=== PATIENT | female | born 1950 | race Caucasian/White ===

== ENCOUNTER 2016-03-02 16:43 | Emergency (ER) | payer MEDICARE, OTHER ==
--- NOTE | 2016-03-02 17:24 | ERPHSYRPT ---
- History of Present Illness Time Seen by Provider: 03/02/16 17:18 Source: patient Exam Limitations: no limitations Patient Subjective Stated Complaint: bilat feet pain radiating to bilat legs Triage Nursing Assessment: saw dr best yesterday for same s/s --bilat feet and leg pain. has been weaning herself off hydrocodone and is down to tid norco 10. states her legs are restless and she cant get comfortable. denies problems with urination. diarrhea 2 days go. skin warm and dry. abd soft Physician History: The patient is a 65-year-old female who complains of chronic foot pain. She is under a lot of stress and is a poor historian. She saw Dr. Aidan Shukla yesterday for depression and was started on Effexor. She forgot to tell him that she was having pain in both feet. She has a history of neuropathy and is taking gabapentin 800 mg twice a day. She tells me that one time she forgot to take her gabapentin and the pain flared up. She then tells me that for the past few weeks that she forgets to take her daily medicines. 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 Method of Injury: other (non injury) Occurred: other (chronic) Quality: constant Severity of Pain-Max: moderate Severity of Pain-Current: moderate Lower Extremities Pain: foot: bilateral Modifying Factors: Improves With: pain medication Associated Symptoms: none Allergies/Adverse Reactions: meperidine HCl [From Demerol] Allergy (Mild, Verified 03/02/16 16:58) Vomiting Home Medications: Amlodipine Besylate [Norvasc] 10 mg PO HS 02/20/13 [History] Atorvastatin Calcium [Lipitor] 40 mg PO DAILY 02/20/13 [History] Carbamazepine 200 mg [Tegretol 200 MG] 200 mg PO TID 02/20/13 [History] Metformin HCl 1000 mg [Glucophage 1000 MG] 1,000 mg PO BID 02/20/13 [History] Albuterol Sulfate 1 vial IN Q4H PRN 05/12/15 [History] Armodafinil [Nuvigil] 1 tab PO DAILY 05/12/15 [History] Gabapentin 400 mg [Neurontin 400 MG] 800 mg PO BID 05/12/15 [History] Lorazepam 1 mg [Ativan 1 MG] 1 mg PO DAILY 05/12/15 [History] Quinapril/Hydrochlorothiazide [Quinapril-Hctz 20-25 mg Tab] 20 mg PO DAILY 05/11 [History] Hx Tetanus, Diphtheria Vaccination/Date Given: Yes Hx Influenza Vaccination/Date Given: No Hx Pneumococcal Vaccination/Date Given: No Immunizations Up to Date: Yes - Review of Systems Constitutional: No Fever, No Chills Eyes: No Symptoms Ears, Nose, & Throat: No Symptoms Respiratory: No Cough, No Dyspnea Cardiac: No Chest Pain, No Edema, No Syncope Abdominal/Gastrointestinal: No Abdominal Pain, No Nausea, No Vomiting, No Diarrhea Genitourinary Symptoms: No Dysuria Musculoskeletal: No Back Pain, No Neck Pain Skin: No Rash Neurological: Other (neuropathy), No Dizziness, No Focal Weakness, No Sensory Changes Hematologic/Lymphatic: No Symptoms Immunological/Allergic: No Symptoms All Other Systems: Reviewed and Negative - Past Medical History Pertinent Past Medical History: Yes Neurological History: No Pertinent History ENT History: No Pertinent History Cardiac History: High Cholesterol, Hypertension Respiratory History: No Pertinent History Endocrine Medical History: Diabetes Type II, Hypothyroidism Musculoskeletal History: No Pertinent History GI Medical History: Colitis, Diverticulitis, Diverticulosis, GERD, Other History: No Pertinent History Psycho-Social History: Anxiety, Depression Female Reproductive Disorders: No Pertinent History - Past Surgical History Past Surgical History: Yes Neuro Surgical History: No Pertinent History Cardiac: No Pertinent History Respiratory: No Pertinent History Gastrointestinal: Cholecystectomy Genitourinary: No Pertinent History Musculoskeletal: No Pertinent History Female Surgical History: Hysterectomy Other Surgical History: thryoid - Social History Smoking Status: Current every day smoker How long have you smoked: 10 years Exposure to second hand smoke: No Drug Use: none Patient Lives Alone: Yes - Female History Hx Now: No - Nursing Vital Signs Nursing Vital Signs: Initial Vital Signs Temperature 98.5 F Temperature Source Oral Pulse Rate 89 Respiratory Rate 18 Blood Pressure 142/84 Pain Intensity 10 - Physical Exam General Appearance: alert Eyes, Ears, Nose, Throat Exam: moist mucous membranes Neck Exam: non-tender, supple Cardiovascular/Respiratory Exam: chest non-tender, normal breath sounds, regular rate/rhythm, no respiratory distress Gastrointestinal/Abdominal Exam: non-tender, guarding Back Exam: normal inspection, No vertebral tenderness Hips Exam: bilateral: non-tender, normal inspection Legs Exam: bilateral leg: non-tender, normal inspection Knees Exam: bilateral knee: non-tender, normal inspection Ankle Exam: bilateral ankle: non-tender, normal inspection Foot Exam: bilateral foot: non-tender, normal inspection Neuro/Tendon Exam: normal sensation, normal motor functions Mental Status Exam: alert, oriented x 3, cooperative, depressed affect Skin Exam: normal color, warm, dry SpO2 Interpretation: normal SpO2: 97 Oxygen Delivery: Room Air - Progress Progress: unchanged Counseled pt/family regarding: diagnosis, need for follow-up - Departure Time of Disposition: 17:25 Departure Disposition: Home Clinical Impression: Neuropathy Condition: Stable Critical Care Time: No Additional Instructions: Increase gabapentin from 800 mg twice a day to 800 mg three times a day. Follow up next week.
[2016-03-02] MEDS ORDERED: TORAdol 30 mg Injection IM ONE (17:29)
[2016-03-02] MEDS ORDERED: TORAdol 30 mg Injection ONE (17:31)
[2016-03-02 18:01] VITALS: BP 154/70; PULSE 77; O2SAT 95
== END 2016-03-02 18:00 | disposition home or self-care (01) ==
LOC: ED 16:43
DX: G62.9 Polyneuropathy, unspecified (principal); E11.9 Type 2 diabetes mellitus without complications; I10 Essential (primary) hypertension; E78.00 Pure hypercholesterolemia, unspecified; Z79.899 Other long term (current) drug therapy
CPT/HCPCS: 96372; 99282; J1885

== ENCOUNTER 2016-06-23 09:15 | Emergency (ER) | payer MEDICARE ==
[2016-06-23] MEDS ORDERED: ANTIVERT 25 MG PO ONE (09:33)
--- NOTE | 2016-06-23 09:38 | ERPHSYRPT ---
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 She is not having any problems speaking. Past medical history includes hypercholesterolemia, high blood pressure, diabetes, hypothyroidism, colitis, diverticulitis, diverticulosis, GERD, anxiety , depression Past surgical history includes cholecystectomy hysterectomy and thyroid surgery Timing/Duration: day(s) (2 days) Severity: moderate Associated Symptoms: other (vertigo for 2 days), No nausea, No vomiting, No abdominal pain, No shortness of breath, No heartburn, No diaphoresis, No cough, No chills, No chest pain, No fever, No headaches, No loss of appetite, No malaise, No rash, No syncope, No seizure, No weakness Allergies/Adverse Reactions: meperidine HCl [From Demerol] Adverse Reaction (Mild, Verified 06/23/16 09:25) Vomiting Home Medications: Amlodipine Besylate [Norvasc] 10 mg PO HS 02/20/13 [History] Atorvastatin Calcium [Lipitor] 40 mg PO DAILY 02/20/13 [History] Metformin HCl 1000 mg [Glucophage 1000 MG] 1,000 mg PO BID 02/20/13 [History] Armodafinil [Nuvigil] 1 tab PO DAILY 05/12/15 [History] Gabapentin 400 mg [Neurontin 400 MG] 800 mg PO BID 05/12/15 [History] Lorazepam 1 mg [Ativan 1 MG] 1 mg PO DAILY 05/12/15 [History] Quinapril/Hydrochlorothiazide [Quinapril-Hctz 20-25 mg Tab] 20 mg PO DAILY 05/11 [History] Venlafaxine HCl [Effexor] 0 mg PO DAILY 06/23/16 [History] Hx Tetanus, Diphtheria Vaccination/Date Given: Yes Hx Influenza Vaccination/Date Given: No Hx Pneumococcal Vaccination/Date Given: No Immunizations Up to Date: Yes - Review of Systems Constitutional: No Fever, No Chills Eyes: No Symptoms, No Discharge, No Eye Pain, No Eye Redness, No Itchy, No Photophobia, No Tearing, No Vision Changes, No Double Vision, No Foreign Body Sensation Ears, Nose, & Throat: No Symptoms, No Ear Pain, No Ear Discharge, No Hearing Changes, No Tinnitus, No Nose Pain, No Nose Congestion, No Nose Discharge, No Sinus Drainage, No Epistaxis, No Mouth Pain, No Mouth Swelling, No Loose Teeth, No Throat Pain, No Throat Swelling, No Hoarse, No Painful Swallowing, No Snoring , No Stridor Respiratory: No Cough, No Dyspnea Cardiac: No Chest Pain, No Edema, No Syncope Abdominal/Gastrointestinal: No Abdominal Pain, No Nausea, No Vomiting, No Diarrhea Genitourinary Symptoms: No Dysuria Musculoskeletal: No Back Pain, No Neck Pain Skin: No Rash Neurological: Dizziness, Vertigo, No Focal Weakness, No Gait Changes, No Headache, No Irritability, No Lethargy, No Paralysis, No Parasthesia, No Seizure , No Sensory Changes, No Speech Changes, No Tics, No Tremors Psychological: No Symptoms Endocrine: No Symptoms All Other Systems: Reviewed and Negative - Past Medical History Pertinent Past Medical History: Yes Neurological History: No Pertinent History ENT History: No Pertinent History Cardiac History: High Cholesterol, Hypertension Respiratory History: No Pertinent History Endocrine Medical History: Diabetes Type II, Hypothyroidism Musculoskeletal History: No Pertinent History GI Medical History: Colitis, Diverticulitis, Diverticulosis, GERD, Other History: No Pertinent History Psycho-Social History: Anxiety, Depression Female Reproductive Disorders: No Pertinent History - Past Surgical History Past Surgical History: Yes Neuro Surgical History: No Pertinent History Cardiac: No Pertinent History Respiratory: No Pertinent History Gastrointestinal: Cholecystectomy Genitourinary: No Pertinent History Musculoskeletal: No Pertinent History Female Surgical History: Hysterectomy Other Surgical History: thryoid - Social History Smoking Status: Current every day smoker How long have you smoked: 10 years Exposure to second hand smoke: No Drug Use: none Patient Lives Alone: Yes - Female History Hx Now: No - Nursing Vital Signs Nursing Vital Signs: Initial Vital Signs Temperature 98.0 F Temperature Source Oral Pulse Rate 70 Respiratory Rate 22 Blood Pressure [] 116/52 Pain Intensity 0 - Physical Exam General Appearance: no apparent distress, alert, other (atient complains of vertigo and dizzyness with turning her head) Eye Exam: PERRL/EOMI, eyes nml inspection Ears, Nose, Throat Exam: normal ENT inspection, TMs normal, pharynx normal, moist mucous membranes Neck Exam: normal inspection, non-tender, supple, full range of motion Respiratory Exam: normal breath sounds, lungs clear, No respiratory distress Cardiovascular Exam: regular rate/rhythm, normal heart sounds, normal peripheral pulses Gastrointestinal/Abdomen Exam: soft, normal bowel sounds, No tenderness, No mass Back Exam: normal inspection, normal range of motion, No CVA tenderness, No vertebral tenderness Extremity Exam: normal inspection, normal range of motion, pelvis stable Neurologic Exam: alert, oriented x 3, cooperative, 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 nml as tested, normal mood/affect, nml cerebellar function, nml station & gait, sensation nml, other (alert, oriented 3, speech normal, no facial droop, cranial nerves II through XII intact, normal finger to nose, 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 5 over 5 , no pronator drift sensation intact to all extremities), No motor deficits, No sensory deficit, No disoriented, No confusion, No agitation, No uncooperative, No intoxicated appearance, No depressed mood/affect, No motor weakness, No facial droop, No slurred speech, No aphasia, No dysarthria, No abnormal gait, No abnormal cerebellar tests Skin Exam: normal color, warm, dry, No rash Lymphatic Exam: No adenopathy SpO2 Interpretation: normal (97%) SpO2: 97 Oxygen Delivery: Room Air - Course EKG Interpreted by Me: RATE (70 bpm), Sinus Rhythm, NORMAL AXIS, Other (EKG: Sinus rhythm, 70 beats per minute, normal axis, no acute ST or T wave changes, essentially normal EKG) - CT Exams Head CT Interpretation: Discussed w/radiologist, Other (head CT: Impression: Again no acute intracranial abnormities, minimal paranasal sinus disease) Ordered Tests: Active Orders 24 hr Category Date Time Status Accucheck STAT Care 06/23/16 09:33 Active EKG-ER Only STAT Care 06/23/16 09:33 Active IV Insertion STAT Care 06/23/16 09:33 Active Orthostatic Vital Signs STAT Care 06/23/16 09:33 Active HEAD WITHOUT CONTRAST [CT] Stat Exams 06/23/16 09:34 Completed CBC W DIFF Stat Lab 06/23/16 09:35 Completed CMP Stat Lab 06/23/16 09:35 Completed TROPONIN Stat Lab 06/23/16 09:35 Completed UA W/ MICROSCOPIC Stat Lab 06/23/16 09:35 Completed Medication Summary Generic Name Dose Route Start Last Admin Trade Name Freq PRN Reason Stop Dose Admin Sodium Chloride 1,000 mls @ 100 mls/hr 06/23/16 09:45 06/23/16 09:52 Sodium Chloride 0.9% 1000 Ml IV 07/23/16 09:44 100 mls/hr .Q10H RENE Administration Discontinued Medications Generic Name Dose Route Start Last Admin Trade Name Freq PRN Reason Stop Dose Admin Aspirin 243 mg 06/23/16 10:20 06/23/16 10:22 Baby Aspirin 81 Mg Chew PO 06/23/16 10:21 243 mg STAT ONE Administration Meclizine HCl 12.5 mg 06/23/16 09:33 06/23/16 09:52 Antivert 25 Mg PO 06/23/16 09:34 12.5 mg STAT ONE Administration Meclizine HCl Confirm 06/23/16 09:43 Antivert 25 Mg Administered 06/23/16 09:44 Dose 25 mg .ROUTE .[facility] ONE Lab/Rad Data: Laboratory Result Diagrams 06/23/16 09:35 06/23/16 09:35 Laboratory Results 06/23/16 06/23/16 06/23/16 Range/Units 09:35 09:35 09:35 WBC 8.4 (4.0-10.5) K/mm3 RBC 4.20 (4.1-5.4) M/mm3 Hgb 12.9 (12.0-16.0) gm/dl Hct 40.5 (35-47) % MCV 96.4 (78-100) fl MCH 30.7 (26-32) pg MCHC 31.9 L (32-36) g/dl RDW 14.1 H (11.5-14.0) % Plt Count 253 (150-450) K/mm3 MPV 10.2 H (6-9.5) fl Gran % 65.2 (36.0-66.0) % Lymphocytes % 25.3 (24.0-44.0) % Monocytes % 6.2 (0.0-12.0) % Eosinophils % 2.5 (0.00-5.0) % Basophils % 0.8 (0.0-0.4) % Basophils # 0.07 (0-0.4) Sodium 140 (136-145) mEq/L Potassium 4.7 (3.5-5.1) mEq/L Chloride 104 (98-107) mEq/L Carbon Dioxide 25.6 (21-32) mEq/L Anion Gap 15.4 H (5-15) MEQ/L BUN 16 (9-20) mg/dL Creatinine 0.80 (0.55-1.30) mg/dl Estimated GFR > 60 ML/MIN Glucose 153 H (70-110) MG/DL Calcium 9.1 (8.5-10.1) mg/dL Total Bilirubin 0.2 (0.2-1.0) mg/dL AST 34 (15-37) U/L ALT 76 (12-78) U/L Alkaline Phosphatase 151 H (46-116) U/L Troponin I < 0.017 (0.000-0.056) ng/ml Serum Total Protein 6.9 (6.4-8.2) gm/dL Albumin 3.3 L (3.4-5.0) g/dL Ur Collection Type VOID Urine Color YELLOW (YELLOW) Urine Appearance CLEAR (CLEAR) Urine pH 7.0 (5-6) Ur Specific [place] 1.010 (1.005-1.025) Urine Protein NEGATIVE (Negative) Urine Glucose (UA) NEGATIVE (NEGATIVE) mg/dL Urine Ketones NEGATIVE (NEGATIVE) Urine Nitrite NEGATIVE (NEGATIVE) Urine Bilirubin NEGATIVE (NEGATIVE) Urine Urobilinogen 0.2 (0-1) mg/dL Urine WBC (Auto) NEGATIVE (NEGATIVE) Urine RBC (Auto) TRACE-INTACT (0-5) [place]/ul Urine Microscopic RBC 2-5 (0-2) /HPF Ur Epithelial Cells FEW (FEW) /HPF Urine Bacteria FEW (NEGATIVE) /HPF Urine Mucus SLIGHT (NEGATIVE) /HPF Specimen Received 06/23/16 0940 - Progress Progress: improved Progress Note: 06/23/16 10:48 66-year-old white female complains of vertigo worse with turning her head symptoms for 2-3 days. Patient without facial droop sensory loss speech deficits or motor deficits or sensory deficits. Patient feeling better after IV fluids and Antivert. Patient mildly orthostatic given 1 L of normal saline. Patient also given aspirin patient is on aspirin at home. Will plan to discharge patient with Antivert when necessary. Patient states she has an appointment with her family doctor next week. 06/23/16 10:[address] negative laboratory data is negative EKG negative - Departure Time of Disposition: 10:49 Departure Disposition: Home Clinical Impression: Vertigo Condition: Fair Critical Care Time: No Instructions: Vertigo Additional Instructions: Return home. Plenty of fluids. Antivert 12.5 mg orally every 6 hours as needed for vertigo. Continue aspirin however changed to 162 mg orally daily. Follow-up with your family doctor next week sooner if problems. Return for acute distress or for severe symptoms. Prescriptions: Meclizine HCl 25 mg [Antivert 25 mg] 12.5 mg PO Q6H PRN PRN #20 tablet PRN Reason: vertigo
[2016-06-23] MEDS ORDERED: Sodium Chloride 0.9% 1000 ML 1,000 ML ONE (09:43)
[2016-06-23] MEDS ORDERED: ANTIVERT 25 MG ONE (09:43)
[2016-06-23] MEDS ORDERED: Sodium Chloride 0.9% 1000 ML 1,000 ML IV SCH (09:45)
[2016-06-23 09:47] LABS: BASOPHIL % 0.8 % (0.0-0.4); Eosinophil % 2.5 % (0.00-5.0); Granulocytes % 65.2 % (36.0-66.0); Lymphocytes % 25.3 % (24.0-44.0); Mean Cell Volume 96.4 fl (78-100); Mean Corpuscular Hemoglobin 30.7 pg (26-32); Mean Platelet Volume 10.2 fl (6-9.5); Monocytes % 6.2 % (0.0-12.0); Platelet Count 253 K/mm3 (150-450); Red Cell Distribution Width 14.1 % (11.5-14.0); White Blood Count 8.4 K/mm3 (4.0-10.5)
[2016-06-23 09:56] LABS: COMPLETE URINE MICROSCOPIC? YES; Collection Type VOID
[2016-06-23 10:00] LABS: Bacteria FEW /HPF (NEGATIVE); Epithelial Cells FEW /HPF (FEW); Mucus SLIGHT /HPF (NEGATIVE)
[2016-06-23 10:08] LABS: ALBUMIN 3.3 g/dL (3.4-5.0); ALKALINE PHOSPHATASE 151 U/L (46-116); ANION GAP 15.4 MEQ/L (5-15); BILIRUBIN,TOTAL 0.2 mg/dL (0.2-1.0); BLOOD UREA NITROGEN 16 mg/dL (9-20); CHLORIDE 104 mEq/L (98-107); Carbon Dioxide 25.6 mEq/L (21-32); Glucose 153 MG/DL (70-110); Potassium 4.7 mEq/L (3.5-5.1); SGOT/AST 34 U/L (15-37); SGPT/ALT 76 U/L (12-78); SODIUM 140 mEq/L (136-145); Total Protein 6.9 gm/dL (6.4-8.2)
[2016-06-23 10:14] LABS: TROPONIN < 0.017 ng/ml (0.000-0.056)
[2016-06-23 10:17] VITALS: O2SAT 97
[2016-06-23] MEDS ORDERED: BABY ASPIRIN 81 MG CHEW PO ONE (10:20)
--- NOTE | 2016-06-23 10:24 | XRAY ---
Indication: Vertigo. Multiple contiguous axial images obtained through the head without contrast. Comparison: July 10, 2014. Again normal appearing brain parenchyma, ventricles, and bony calvarium. Again fluid leveling in the left sphenoid sinus less than before. Remaining visualized paranasal sinuses and mastoid air cells are clear. Impression: Again no acute intracranial abnormalities. Minimal paranasal sinus disease. CT DI 69.25
[2016-06-23 11:27] VITALS: BP 115/66; PULSE 68
[2016-06-23] MEDS ORDERED: BABY ASPIRIN 81 MG CHEW ONE (12:35)
== END 2016-06-23 11:31 | disposition home or self-care (01) ==
LOC: ED 09:15
DX: R42 Dizziness and giddiness (principal); E11.9 Type 2 diabetes mellitus without complications; Z79.4 Long term (current) use of insulin; K21.9 Gastro-esophageal reflux disease without esophagitis; F41.8 Other specified anxiety disorders; Z72.0 Tobacco use; Z79.899 Other long term (current) drug therapy
CPT/HCPCS: 36000; 36415; 70450; 80053; 81000; 82962; 84484; 85025; 93005; 96360; 96361; 99284; 99285; A9270-GY

== ENCOUNTER 2016-12-04 20:44 | Emergency (ER) | payer MEDICARE ==
[2016-12-04] MEDS ORDERED: Hydromorphone 1 mg/ml Ampule IV ONE (21:12)
[2016-12-04] MEDS ORDERED: Phenergan 25 MG INJ IV ONE (21:12)
[2016-12-04] MEDS ORDERED: Sodium Chloride 0.9% 1000 ML 1,000 ML IV SCH (21:15)
--- NOTE | 2016-12-04 21:22 | ERPHSYRPT ---
- History of Present Illness Time Seen by Provider: 12/04/16 21:05 Source: patient Exam Limitations: no limitations Patient Subjective Stated Complaint: pt states she has been having intermittent numbness of her rt arm which starts in the hand and tonight moves to the rt upper arm. pt states at times she sometimes gets numbness in the lt hand also. states numbness improves after shaking hand. Triage Nursing Assessment: pt alert and oriented, answers questions approp. speech slurred. pt ambulatory with steady gait noted. respirations nonlabored with lungs cta. pupils equal and reactive. 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 Physician History: FOR THE PAST 3 WEEKS PT HAS HAD PAINFUL TINGLING OF HER HANDS AND RIGHT FOREARM/ ELBOW WHICH FEELS LIKE THE NEUROPATHY SHE HAS HAD IN HER LOWER EXTREMITIES. PT DENIES RECENT INJURY, CHEST PAIN, SHORTNESS OF AIR, VOMITING, ABDOMINAL PAIN; ADMITS TO CHILLS AND DIAPHORESIS 7 DAYS AGO AND CHILLS AGAIN 2 DAYS AGO. Allergies/Adverse Reactions: meperidine HCl [From [employer]] Adverse Reaction (Mild, Verified 12/04/16 21:01) Vomiting Home Medications: Amlodipine Besylate [Norvasc] 10 mg PO HS 02/20/13 [History] Atorvastatin Calcium [Lipitor] 40 mg PO DAILY 02/20/13 [History] Metformin HCl 1000 mg [Glucophage 1000 MG] 1,000 mg PO BID 02/20/13 [History] Gabapentin 400 mg [Neurontin 400 MG] 800 mg PO TID 05/12/15 [History] Hydrocodone/APAP 10/325 mg [[place] 10/325 MG Tablet] 1 tab PO Q6H PRN PRN 12/04/16 [History] Levothyroxine Sodium 150 mcg PO DAILY 12/04/16 [History] Quinapril HCl 40 mg PO BID 12/04/16 [History] Ranitidine HCl [Zantac] 300 mg PO DAILY 12/04/16 [History] Trazodone HCl 150 mg PO HS 12/04/16 [History] Venlafaxine HCl [Effexor Xr] 150 mg PO DAILY 12/04/16 [History] Hx Tetanus, Diphtheria Vaccination/Date Given: Yes Hx Influenza Vaccination/Date Given: No Hx Pneumococcal Vaccination/Date Given: No Immunizations Up to Date: Yes - Review of Systems Constitutional: Chills Respiratory: No Dyspnea Cardiac: No Chest Pain Abdominal/Gastrointestinal: No Abdominal Pain, No Vomiting Neurological: Sensory Changes (TINGLING IN HANDS AND RIGHT FOREARM/ELBOW) Endocrine: Excessive Sweating All Other Systems: Reviewed and Negative - Past Medical History Pertinent Past Medical History: Yes Neurological History: No Pertinent History ENT History: No Pertinent History Cardiac History: High Cholesterol, Hypertension Respiratory History: No Pertinent History Endocrine Medical History: Diabetes Type II, Hypothyroidism Musculoskeletal History: No Pertinent History GI Medical History: Colitis, Diverticulitis, Diverticulosis, GERD, Other History: No Pertinent History Psycho-Social History: Anxiety, Depression Female Reproductive Disorders: No Pertinent History - Past Surgical History Past Surgical History: Yes Neuro Surgical History: No Pertinent History Cardiac: No Pertinent History Respiratory: No Pertinent History Gastrointestinal: Cholecystectomy Genitourinary: No Pertinent History Musculoskeletal: No Pertinent History Female Surgical History: Hysterectomy Other Surgical History: thryoid - Social History Smoking Status: Current every day smoker How long have you smoked: 10 years Exposure to second hand smoke: No Drug Use: none Patient Lives Alone: Yes - Female History Hx Now: No - Nursing Vital Signs Nursing Vital Signs: Initial Vital Signs Temperature 97.7 F 12/04/16 20:49 Pulse Rate 81 12/04/16 20:49 Respiratory Rate 18 12/04/16 20:49 Blood Pressure 149/57 12/04/16 20:49 O2 Sat by Pulse Oximetry 95 12/04/16 20:49 Pain Scale Pain Intensity 10 - Physical Exam General Appearance: alert Eye Exam: PERRL/EOMI Ears, Nose, Throat Exam: pharynx normal, moist mucous membranes, other (CERUMEN OCCLUSION OF RIGHT EAR) Neck Exam: normal inspection Respiratory Exam: lungs clear Cardiovascular Exam: normal heart sounds Gastrointestinal/Abdomen Exam: soft, normal bowel sounds Back Exam: normal range of motion Extremity Exam: normal inspection, normal range of motion, No pedal edema Neurologic Exam: alert, cooperative, normal mood/affect, sensory deficit ( DECREASED SENSATION IN RIGHT THUMB), No motor deficits Skin Exam: warm, dry SpO2 Interpretation: normal SpO2: 95 Oxygen Delivery: Room Air - Course Nursing assessment & vital signs reviewed: Yes Ordered Tests: Active Orders 24 hr Category Date Time Status IV Insertion STAT Care 12/04/16 21:12 Active AMYLASE Stat Lab 12/04/16 21:30 Completed CBC W DIFF Stat Lab 12/04/16 21:30 Completed CMP Stat Lab 12/04/16 21:30 Completed LIPASE Stat Lab 12/04/16 21:30 Completed MAG [MAGNESIUM] Stat Lab 12/04/16 21:30 Completed UA W/RFX UR CULTURE Stat Lab 12/04/16 21:40 Completed Urine Triage Profile Stat Lab 12/04/16 21:40 Completed Medication Summary Generic Name Dose Route Start Last Admin Trade Name Freq PRN Reason Stop Dose Admin Sodium Chloride 1,000 mls @ 100 mls/hr 12/04/16 21:15 12/04/16 21:26 Sodium Chloride 0.9% 1000 Ml IV 01/03/17 21:14 100 mls/hr .Q10H RENE Administration Discontinued Medications Generic Name Dose Route Start Last Admin Trade Name Freq PRN Reason Stop Dose Admin Hydromorphone HCl 1 mg 12/04/16 21:12 12/04/16 21:27 Hydromorphone 1 Mg/Ml Ampule IV 12/04/16 21:13 1 mg STAT ONE Administration Hydromorphone HCl Confirm 12/04/16 21:24 Hydromorphone 1 Mg/Ml Ampule Administered 12/04/16 21:25 Dose 1 mg .ROUTE .STK-MED ONE Promethazine HCl 12.5 mg 12/04/16 21:12 12/04/16 21:27 Phenergan 25 Mg Inj IV 12/04/16 21:13 12.5 mg STAT ONE Administration Promethazine HCl Confirm 12/04/16 21:24 Phenergan 25 Mg Inj Administered 12/04/16 21:25 Dose 25 mg .ROUTE .STK-MED ONE Lab/Rad Data: Laboratory Result Diagrams 12/04/16 21:30 12/04/16 21:30 Laboratory Results 12/04/16 12/04/16 12/04/16 Range/Units 21:40 21:40 21:30 WBC (4.0-10.5) K/mm3 RBC (4.1-5.4) M/mm3 Hgb (12.0-16.0) gm/dl Hct (35-47) % MCV (78-100) fl MCH (26-32) pg MCHC (32-36) g/dl RDW (11.5-14.0) % Plt Count (150-450) K/mm3 MPV (6-9.5) fl Gran % (36.0-66.0) % Lymphocytes % (24.0-44.0) % Monocytes % (0.0-12.0) % Eosinophils % (0.00-5.0) % Basophils % (0.0-0.4) % Basophils # (0-0.4) Sodium (136-145) mEq/L Potassium (3.5-5.1) mEq/L Chloride (98-107) mEq/L Carbon Dioxide (21-32) mEq/L Anion Gap (5-15) MEQ/L BUN (9-20) mg/dL Creatinine (0.55-1.30) mg/dl Estimated GFR ML/MIN Glucose (70-110) MG/DL Calcium (8.5-10.1) mg/dL Magnesium 1.9 (1.8-2.4) mg/dL Total Bilirubin (0.2-1.0) mg/dL AST (15-37) U/L ALT (12-78) U/L Alkaline Phosphatase (46-116) U/L Serum Total Protein (6.4-8.2) gm/dL Albumin (3.4-5.0) g/dL Amylase (25-115) U/L Lipase (73-393) U/L Ur Collection Type CLEAN CATCH Urine Color YELLOW (YELLOW) Urine Appearance CLEAR (CLEAR) Urine pH 6.0 (5-6) Ur Specific [place] 1.005 (1.005-1.025) Urine Protein NEGATIVE (Negative) Urine Ketones NEGATIVE (NEGATIVE) Urine Blood NEGATIVE (0-5) [place]/ul Urine Nitrite NEGATIVE (NEGATIVE) Urine Bilirubin NEGATIVE (NEGATIVE) Urine Urobilinogen NORMAL (0-1) mg/dL Ur Leukocyte Esterase NEGATIVE (NEGATIVE) Urine Culture Reflexed NO (NO) Urine Glucose NEGATIVE (NEGATIVE) mg/dL Urine Opiates Level POS. (NEGATIVE) Ur Methadone NEG. (NEGATIVE) Urine Barbiturates NEG. (NEGATIVE) Ur Phencyclidine (PCP) NEG. (NEGATIVE) Urine Amphetamine NEG. (NEGATIVE) U Benzodiazepine Level NEG. (NEGATIVE) Urine Cocaine NEG. (NEGATIVE) Urine Marijuana (THC) NEG. (NEGATIVE) Specimen Received [id number] 10/09/17 10/09/17 Range/Units 21:30 21:30 WBC 6.5 (4.0-10.5) K/mm3 RBC 3.54 L (4.1-5.4) M/mm3 Hgb 11.4 L (12.0-16.0) gm/dl Hct 35.1 (35-47) % MCV 99.2 (78-100) fl MCH 32.2 H (26-32) pg MCHC 32.5 (32-36) g/dl RDW 14.0 (11.5-14.0) % Plt Count 214 (150-450) K/mm3 MPV 9.6 H (6-9.5) fl Gran % 55.7 (36.0-66.0) % Lymphocytes % 30.0 (24.0-44.0) % Monocytes % 9.9 (0.0-12.0) % Eosinophils % 3.8 (0.00-5.0) % Basophils % 0.6 (0.0-0.4) % Basophils # 0.04 (0-0.4) Sodium 140 (136-145) mEq/L Potassium 4.9 (3.5-5.1) mEq/L Chloride 103 (98-107) mEq/L Carbon Dioxide 27.8 (21-32) mEq/L Anion Gap 13.6 (5-15) MEQ/L BUN 15 (9-20) mg/dL Creatinine 0.84 (0.55-1.30) mg/dl Estimated GFR > 60 ML/MIN Glucose 93 (70-110) MG/DL Calcium 9.4 (8.5-10.1) mg/dL Magnesium (1.8-2.4) mg/dL Total Bilirubin 0.30 (0.2-1.0) mg/dL AST 17 (15-37) U/L ALT 16 (12-78) U/L Alkaline Phosphatase 61 (46-116) U/L Serum Total Protein 7.0 (6.4-8.2) gm/dL Albumin 3.7 (3.4-5.0) g/dL Amylase 52 (25-115) U/L Lipase 242 (73-393) U/L Ur Collection Type Urine Color (YELLOW) Urine Appearance (CLEAR) Urine pH (5-6) Ur Specific [place] (1.005-1.025) Urine Protein (Negative) Urine Ketones (NEGATIVE) Urine Blood (0-5) [place]/ul Urine Nitrite (NEGATIVE) Urine Bilirubin (NEGATIVE) Urine Urobilinogen (0-1) mg/dL Ur Leukocyte Esterase (NEGATIVE) Urine Culture Reflexed (NO) Urine Glucose (NEGATIVE) mg/dL Urine Opiates Level (NEGATIVE) Ur Methadone (NEGATIVE) Urine Barbiturates (NEGATIVE) Ur Phencyclidine (PCP) (NEGATIVE) Urine Amphetamine (NEGATIVE) U Benzodiazepine Level (NEGATIVE) Urine Cocaine (NEGATIVE) Urine Marijuana (THC) (NEGATIVE) Specimen Received - Departure Time of Disposition: 22:57 Departure Disposition: Home Clinical Impression: PAINFUL TINGLING IN HANDS AND RIGHT FOREARM Condition: Stable Critical Care Time: No Referrals: HOSEA ANTOINE [Primary Care Provider] - Instructions: Numbness/tingling Additional Instructions: FOLLOW UP WITH PRIVATE DOCTOR TOMORROW.
[2016-12-04] MEDS ORDERED: Phenergan 25 MG INJ ONE (21:24)
[2016-12-04] MEDS ORDERED: Sodium Chloride 0.9% 1000 ML 1,000 ML ONE (21:24)
[2016-12-04] MEDS ORDERED: Hydromorphone 1 mg/ml Ampule ONE (21:24)
[2016-12-04 21:39] LABS: BASOPHIL % 0.6 % (0.0-0.4); Eosinophil % 3.8 % (0.00-5.0); Granulocytes % 55.7 % (36.0-66.0); Mean Cell Volume 99.2 fl (78-100); Mean Corpuscular Hemoglobin 32.2 pg (26-32); Mean Platelet Volume 9.6 fl (6-9.5); Monocytes % 9.9 % (0.0-12.0); Platelet Count 214 K/mm3 (150-450); Red Blood Count 3.54 M/mm3 (4.1-5.4); White Blood Count 6.5 K/mm3 (4.0-10.5)
[2016-12-04 21:47] LABS: ADD URINE CULTURE? NO (NO); Bilirubin NEGATIVE (NEGATIVE); Blood NEGATIVE Ery/ul (0-5); COMPLETE URINE MICROSCOPIC? NO; Collection Type CLEAN CATCH; Glucose NEGATIVE (NEGATIVE); Leukocyte Esterase NEGATIVE (NEGATIVE)
[2016-12-04 22:06] LABS: ALBUMIN 3.7 g/dL (3.4-5.0); ALKALINE PHOSPHATASE 61 U/L (46-116); ANION GAP 13.6 MEQ/L (5-15); BLOOD UREA NITROGEN 15 mg/dL (9-20); CHLORIDE 103 mEq/L (98-107); Carbon Dioxide 27.8 mEq/L (21-32); Glucose 93 MG/DL (70-110); LIPASE 242 U/L (73-393); Potassium 4.9 mEq/L (3.5-5.1); SGOT/AST 17 U/L (15-37); SGPT/ALT 16 U/L (12-78); SODIUM 140 mEq/L (136-145)
[2016-12-05 01:46] VITALS: BP 99/37; PULSE 64; O2SAT 95
== END 2016-12-05 01:48 | disposition home or self-care (01) ==
LOC: ED 20:44
DX: R20.2 Paresthesia of skin (principal); M79.642 Pain in left hand; M79.641 Pain in right hand; M79.631 Pain in right forearm; Z79.899 Other long term (current) drug therapy; E78.00 Pure hypercholesterolemia, unspecified; I10 Essential (primary) hypertension; E11.9 Type 2 diabetes mellitus without complications; E03.9 Hypothyroidism, unspecified
CPT/HCPCS: 36000; 36415; 80053; 80307; 81002; 82150; 83690; 83735; 85025; 96360; 96361; 96374; 96375; 99283; 99284; J1170; J2550

== ENCOUNTER 2018-04-25 12:53 | Emergency (ER) | payer MEDICARE ==
[2018-04-25] MEDS ORDERED: DUONEB 0.5-3 MG/3 ml Neb IH ONE ×2 (12:57→13:07)
[2018-04-25] MEDS ORDERED: Sodium Chloride 0.9% 1000 ML 1,000 ML IV SCH (13:00)
[2018-04-25] MEDS ORDERED: Sodium Chloride 0.9% 1000 ML 1,000 ML ONE (13:18)
--- NOTE | 2018-04-25 13:23 | XRAY ---
Exam: AP upright portable chest film from 04/25/2018. Comparison: AP upright portable chest film from 05/12/2015. Indication: Cough, shortness breath, history of smoking, no history of prior chest surgery. Findings: The heart size appears normal. There is slight tortuosity of the descending thoracic aorta. No pleural fluid is seen. I note moderately dense air space infiltrate throughout the lower two thirds of each lung field, right greater than left. There is also minimal infiltrate within the medial right upper lobe. The findings are most consistent with bilateral pneumonia. This represents worsening as compared to the prior chest film from 05/12/2015. There may be some minimal plate atelectasis within the lateral right lower lung field. I cannot exclude a small calcified granuloma within the left midlung zone. No pneumothorax is seen. No acute osseous process is seen. Impression: 1. Fairly extensive bilateral air space infiltrates, right greater than left, consistent with bilateral pneumonia representing an unfavorable change from 05/12/2015.
[2018-04-25 13:24] LABS: A-aADO2 598; ABG HEMOGLOBIN 8.6; ABG POTASSIUM 4.5 (3.5-5.1); ARTERIAL BLD GAS O2 SATURATION 95.4 % (95-100); ARTERIAL BLOOD GAS BASE EXCESS -3.3 (-2.0-2.0); ARTERIAL BLOOD GAS FIO2 100 %; ARTERIAL BLOOD GAS PCO2 35 mmHg (35-45); ARTERIAL BLOOD GAS PO2 71 mmHg (75-100); ARTERIAL BLOOD GAS pH 7.39 (7.35-7.45); CARBOXYHEMOGLOBIN 3.6 % THgb (0.0-6.9); HCO3- 21.2 (22-28); HGB O2 SAT 91.8 g/dF (94-100); Lactic Acid 0.7 (0.4-2.0); Methhemoglobin 0.2 % (1.4-1.5); paO2 pAO1 0.11
--- NOTE | 2018-04-25 13:24 | ERPHSYRPT ---
- History of Present Illness Time Seen by Provider: 04/25/18 13:20 Source: patient Exam Limitations: no limitations Patient Subjective Stated Complaint: pt brought to back door by family for not feeling well for a week, with cough, weakness, no fever. pt was on her way to see dr when she was unable to breath Triage Nursing Assessment: pt alert, skin w/d/pale,resp easy, skin w/d/p. has cough productive clear in color, abd soft Physician History: 67-year-old white female with history of hypercholesterolemia, high blood pressure, diabetes, hypothyroidism arrives with complaint of shortness of breath symptoms for one week she states she has had a mildly productive cough she denies fevers no nausea no vomiting. Patient arrives in moderate distress. Past medical history includes hypercholesterolemia, high blood pressure, diabetes type 2, hypothyroidism, colitis, diverticulitis, diverticulosis, GERD, , anxiety, depression Past surgical history includes cholecystectomy, hysterectomy, thyroid surgery Timing/Duration: week(s) (symptoms for one week progressively worse) Activities at Onset: none Severity of Dyspnea-Max: moderate Severity of Dyspnea-Current: moderate Possible Cause: no prior episodes Associated Symptoms: cough, wheezing, productive cough, No constant, No intermittent, No anxiety, No chest pain/discomfort, No edema, No fever, No insomnia, No loss of appetite, No lightheadedness, No weakness, No ankle swelling, No chills, No hemoptysis, No calf pain, No dizziness, No heaviness, No heart racing, No lightheadedness, No leg swelling, No muscle spasms feet, No muscle spasms hands, No painful breathing, No sweating, No tightness, No tingling face International travel in last 2 weeks: No Allergies/Adverse Reactions: meperidine HCl [From Demerol] Adverse Reaction (Mild, Verified 04/25/18 13:02) Vomiting Home Medications: Amlodipine Besylate [Norvasc] 10 mg PO HS 02/20/13 [History] Atorvastatin Calcium [Lipitor] 40 mg PO DAILY 02/20/13 [History] Gabapentin 400 mg [Neurontin 400 MG] 800 mg PO TID 05/12/15 [History] Hydrocodone/APAP 10/325 mg [[place] 10/325 MG Tablet] 1 tab PO Q6H PRN PRN 12/04/16 [History] Levothyroxine Sodium 125 mcg PO DAILY 12/04/16 [History] Quinapril HCl 40 mg PO BID 12/04/16 [History] Ranitidine HCl [Zantac] 300 mg PO DAILY 12/04/16 [History] Trazodone HCl 150 mg PO HS 12/04/16 [History] Venlafaxine HCl [Effexor Xr] 150 mg PO DAILY 12/04/16 [History] Hx Tetanus, Diphtheria Vaccination/Date Given: Yes Hx Influenza Vaccination/Date Given: Yes Hx Pneumococcal Vaccination/Date Given: Yes Immunizations Up to Date: Yes - Review of Systems Constitutional: No Fever, No Chills Eyes: No Symptoms Ears, Nose, & Throat: No Symptoms Respiratory: Cough, Dyspnea, Wheezing Cardiac: No Chest Pain, No Edema, No Syncope Abdominal/Gastrointestinal: No Abdominal Pain, No Nausea, No Vomiting, No Diarrhea Genitourinary Symptoms: No Dysuria Musculoskeletal: No Back Pain, No Neck Pain Skin: No Rash Neurological: No Dizziness, No Focal Weakness, No Sensory Changes Psychological: No Symptoms Endocrine: No Symptoms All Other Systems: Reviewed and Negative - Past Medical History Pertinent Past Medical History: Yes Neurological History: No Pertinent History ENT History: No Pertinent History Cardiac History: High Cholesterol, Hypertension Respiratory History: No Pertinent History Endocrine Medical History: Diabetes Type II, Hypothyroidism Musculoskeletal History: No Pertinent History GI Medical History: Colitis, Diverticulitis, Diverticulosis, GERD, Other History: No Pertinent History Psycho-Social History: Anxiety, Depression Female Reproductive Disorders: No Pertinent History - Past Surgical History Past Surgical History: Yes Neuro Surgical History: No Pertinent History Cardiac: No Pertinent History Respiratory: No Pertinent History Gastrointestinal: Cholecystectomy Genitourinary: No Pertinent History Musculoskeletal: No Pertinent History Female Surgical History: Hysterectomy Other Surgical History: thryoid - Social History Smoking Status: Current every day smoker How long have you smoked: 10 years Exposure to second hand smoke: Yes Drug Use: none Patient Lives Alone: No - Female History Hx Last Menstrual Period: post - Nursing Vital Signs Nursing Vital Signs: Initial Vital Signs Temperature 98.4 F 04/25/18 12:54 Pulse Rate 82 04/25/18 12:54 Respiratory Rate 38 H 04/25/18 12:54 Blood Pressure 139/36 04/25/18 12:54 O2 Sat by Pulse Oximetry 60 L 04/25/18 12:54 Pain Scale Pain Intensity 0 - Physical Exam General Appearance: moderate distress, alert, other (pale) Eye Exam: PERRL/EOMI Ears, Nose, Throat Exam: hearing grossly normal Neck Exam: normal inspection, supple Respiratory Exam: diminished breath sounds, wheezing Cardiovascular/Chest Exam: normal heart sounds, regular rate/rhythm Abdominal/Gastrointestinal Exam: soft, No tenderness, No distention, No mass Extremity Exam: non-tender, normal range of motion, normal inspection, no calf tenderness, no pedal edema Peripheral Pulses Exam: dorsalis-pedis (R): 2+, dorsalis-pedis (L): 2+ Neurologic Exam: alert, oriented x 3, cooperative, ramp supervisor II-XII nml as tested, sensation nml, No motor deficits Skin Exam: pale SpO2 Interpretation: hypoxic SpO2: 60 O2 Delivery: Room Air - Course Nursing assessment & vital signs reviewed: Yes EKG Interpreted by Me: RATE (72 bpm), Sinus Rhythm, NORMAL AXIS, Other (EKG: Sinus rhythm, 72 bpm, normal axis, no acute ST or T wave changes.) - Radiology Exams Chest X-ray Interpretation: Discussed w/ radiologist (chest x-ray colon impression 1. fairly extensive bilateral airspace infiltrates right greater than left. Consistent with bilateral pneumonia representing an unfavorable changefrom May 12, 2015 ) Ordered Tests: Active Orders 24 hr Category Date Time Status Shank Faker STAT Care 04/25/18 12:58 Active EKG-ER Only STAT Care 04/25/18 12:57 Active IV Insertion STAT Care 04/25/18 12:57 Active Oxygen-ED Only Nasal Cannula 4 lpm Care 04/25/18 12:57 Active CHEST 1 VIEW (PORTABLE) Stat Exams 04/25/18 12:58 Completed ARTERIAL BLOOD GASES Stat Lab 04/25/18 13:13 Completed BLOOD CULTURE Stat Lab 04/25/18 13:30 Received CBC W DIFF Stat Lab 04/25/18 13:04 Completed CMP Stat Lab 04/25/18 13:04 Completed CULTURE,SPUTUM Stat Lab 04/25/18 12:58 Uncollected D-DIMER QUANTITATION Stat Lab 04/25/18 13:04 Completed Lactic Acid Stat Lab 04/25/18 13:13 Completed NT PRO BNP Stat Lab 04/25/18 13:04 Completed PROTIME WITH INR Stat Lab 04/25/18 13:04 Completed PTT Stat Lab 04/25/18 13:04 Completed TROPONIN Q3H Lab 04/25/18 13:04 Completed TROPONIN Q3H Lab 04/25/18 16:00 Ordered TROPONIN Q3H Lab 04/25/18 19:00 Ordered TROPONIN Q3H Lab 04/25/18 22:00 Ordered TROPONIN Q3H Lab 04/26/18 01:00 Ordered UA W/RFX UR CULTURE Stat Lab 04/25/18 13:42 Completed Respiratory Nebulizer STAT RT 04/25/18 12:58 Completed Respiratory Therapy Assessment DAILY RT 04/26/18 07:00 Active Medication Summary Generic Name Dose Route Start Last Admin Trade Name Freq PRN Reason Stop Dose Admin Sodium Chloride 1,000 mls @ 60 mls/hr 04/25/18 13:00 04/25/18 13:19 Sodium Chloride 0.9% 1000 Ml IV 05/25/18 12:59 60 mls/hr .[id number] RENE Administration Discontinued Medications Generic Name Dose Route Start Last Admin Trade Name Freq PRN Reason Stop Dose Admin Albuterol/Ipratropium 3 ml 04/25/18 12:57 04/25/18 13:10 Duoneb 0.5-3 Mg/3 Ml Neb IH 04/25/18 12:58 3 ml STAT ONE Administration Albuterol/Ipratropium Confirm 04/25/18 13:07 Duoneb 0.5-3 Mg/3 Ml Neb Administered 04/25/18 13:08 Dose 3 ml IH .STK-MED ONE Aspirin 324 mg 04/25/18 14:08 04/25/18 14:16 Baby Aspirin 81 Mg Chew PO 04/25/18 14:09 324 mg STAT ONE Administration Aspirin Confirm 04/25/18 14:11 Baby Aspirin 81 Mg Chew Administered 04/25/18 14:12 Dose 324 mg .ROUTE .STK-MED ONE Enoxaparin Sodium 70 mg 04/25/18 14:52 Enoxaparin Sodium 1 mg/kg (70 mg) 04/25/18 14:53 SQ 1XONLY STA Furosemide 40 mg 04/25/18 14:16 04/25/18 14:29 Lasix 40 Mg/4 Ml IV 04/25/18 14:17 40 mg STAT ONE Administration Furosemide Confirm 04/25/18 14:28 Lasix 40 Mg/4 Ml Administered 04/25/18 14:29 Dose 40 mg .ROUTE .STK-MED ONE Ceftriaxone Sodium/Dextrose 1 g in 50 mls @ 100 mls/hr 04/25/18 13:26 14:17 Rocephin 1 Gm-D5w 50 Ml Bag IV 04/25/18 13:55 100 mls/hr STAT STA Administration Ceftriaxone Sodium/Dextrose Confirm 04/25/18 14:11 Rocephin 1 Gm-D5w 50 Ml Bag Administered 04/25/18 14:12 Dose 1 g in 50 mls @ ud IV .STK-MED ONE Methylprednisolone Sodium Succinate 125 mg 04/25/18 13:30 04/25/18 14:16 Solu-Medrol 125 Mg IV 04/25/18 13:31 125 mg STAT ONE Administration Methylprednisolone Sodium Succinate Confirm 04/25/18 14:11 Solu-Medrol 125 Mg Administered 04/25/18 14:12 Dose 125 mg .ROUTE .STK-MED ONE Lab/Rad Data: Laboratory Result Diagrams 04/25/18 13:04 04/25/18 13:04 Laboratory Results 04/25/18 04/25/18 04/25/18 Range/Units 13:42 13:30 13:13 WBC (4.0-10.5) K/mm3 RBC (4.1-5.4) M/mm3 Hgb (12.0-16.0) gm/dl Hct (35-47) % MCV (78-100) fl MCH (26-32) pg MCHC (32-36) g/dl RDW (11.5-14.0) % Plt Count (150-450) K/mm3 MPV (6-9.5) fl Gran % (36.0-66.0) % Eos # (Auto) (0-0.5) Absolute Lymphs (auto) (1.0-4.6) Absolute Monos (auto) (0.0-1.3) Lymphocytes % (24.0-44.0) % Monocytes % (0.0-12.0) % Eosinophils % (0.00-5.0) % Basophils % (0.0-0.4) % Absolute Granulocytes (1.4-6.9) Basophils # (0-0.4) PT (9.95-12.35) SECONDS INR (0.8-3.0) APTT (25.3-37.0) SECONDS D-Dimer (215-500) ng/mL Puncture Site RIGHT RADIAL pCO2 35 (35-45) mmHg pO2 71 L (75-100) mmHg Base Excess -3.3 L (-2.0-2.0) O2 Saturation 91.8 L (94-100) g/dF ABG pH 7.39 (7.35-7.45) ABG HCO3 21.2 L (22-28) ABG O2 Sat (Measured) 95.4 (95-100) % Reese Test YES A-a Gradient 598 a/A Ratio 0.11 Hemoglobin 8.6 Carboxyhemoglobin 3.6 (0.0-6.9) % THgb Methemoglobin 0.2 L (1.4-1.5) % Temperature 37.0 C POC O2 Flow Rate 100 % Sodium (137-145) mmol/L Potassium 4.5 (3.5-5.1) mmol/L Chloride (98-107) mmol/L Carbon Dioxide (22-30) mmol/L Anion Gap (5-15) MEQ/L BUN (7-17) mg/dL Creatinine (0.52-1.04) mg/dL Estimated GFR ML/MIN Glucose (74-106) mg/dL Lactic Acid 0.7 (0.4-2.0) Calcium (8.4-10.2) mg/dL Total Bilirubin (0.2-1.3) mg/dL AST (14-36) U/L ALT (0-35) U/L Alkaline Phosphatase (38-126) U/L Troponin I (0.000-0.034) ng/mL NT-Pro-B Natriuret Pep (0-900) pg/mL Serum Total Protein (6.3-8.2) g/dL Albumin (3.5-5.0) g/dL Urine Color YELLOW (YELLOW) Urine Appearance CLEAR (CLEAR) Urine pH 5.0 (5-6) Ur Specific [place] 1.024 (1.005-1.025) Urine Protein 30 (Negative) Urine Ketones TRACE (NEGATIVE) Urine Blood NEGATIVE (0-5) [place]/ul Urine Nitrite NEGATIVE (NEGATIVE) Urine Bilirubin NEGATIVE (NEGATIVE) Urine Urobilinogen 2 (0-1) mg/dL Ur Leukocyte Esterase NEGATIVE (NEGATIVE) Urine WBC (Auto) 0-2 (0-5) /HPF Urine RBC (Auto) NONE (0-2) /HPF U Epithel Cells (Auto) NONE (FEW) /HPF Urine Culture Reflexed NO (NO) Urine Glucose NEGATIVE (NEGATIVE) mg/dL Influenza Type A Ag NEGATIVE (NEGATIVE) Influenza Type B Ag NEGATIVE (NEGATIVE) RSV (PCR) NEGATIVE (Negative) 04/25/18 04/25/18 04/25/18 Range/Units 13:04 13:04 13:04 WBC (4.0-10.5) K/mm3 RBC (4.1-5.4) M/mm3 Hgb (12.0-16.0) gm/dl Hct (35-47) % MCV (78-100) fl MCH (26-32) pg MCHC (32-36) g/dl RDW (11.5-14.0) % Plt Count (150-450) K/mm3 MPV (6-9.5) fl Gran % (36.0-66.0) % Eos # (Auto) (0-0.5) Absolute Lymphs (auto) (1.0-4.6) Absolute Monos (auto) (0.0-1.3) Lymphocytes % (24.0-44.0) % Monocytes % (0.0-12.0) % Eosinophils % (0.00-5.0) % Basophils % (0.0-0.4) % Absolute Granulocytes (1.4-6.9) Basophils # (0-0.4) PT 14.9 H (9.95-12.35) SECONDS INR 1.28 (0.8-3.0) APTT 26.6 (25.3-37.0) SECONDS D-Dimer 1366 H* (215-500) ng/mL Puncture Site pCO2 (35-45) mmHg pO2 (75-100) mmHg Base Excess (-2.0-2.0) O2 Saturation (94-100) g/dF ABG pH (7.35-7.45) ABG HCO3 (22-28) ABG O2 Sat (Measured) (95-100) % Reese Test A-a Gradient a/A Ratio Hemoglobin Carboxyhemoglobin (0.0-6.9) % THgb Methemoglobin (1.4-1.5) % Temperature C POC O2 Flow Rate % Sodium 136 L (137-145) mmol/L Potassium 4.7 (3.5-5.1) mmol/L Chloride 104 (98-107) mmol/L Carbon Dioxide 25 (22-30) mmol/L Anion Gap 11.8 (5-15) MEQ/L BUN 26 H (7-17) mg/dL Creatinine 1.32 H (0.52-1.04) mg/dL Estimated GFR 42.4 ML/MIN Glucose 144 H (74-106) mg/dL Lactic Acid (0.4-2.0) Calcium 9.0 (8.4-10.2) mg/dL Total Bilirubin 0.60 (0.2-1.3) mg/dL AST 58 H (14-36) U/L ALT 27 (0-35) U/L Alkaline Phosphatase 107 (38-126) U/L Troponin I 0.106 H* (0.000-0.034) ng/mL NT-Pro-B Natriuret Pep 7300 H (0-900) pg/mL Serum Total Protein 6.6 (6.3-8.2) g/dL Albumin 3.6 (3.5-5.0) g/dL Urine Color (YELLOW) Urine Appearance (CLEAR) Urine pH (5-6) Ur Specific [place] (1.005-1.025) Urine Protein (Negative) Urine Ketones (NEGATIVE) Urine Blood (0-5) [place]/ul Urine Nitrite (NEGATIVE) Urine Bilirubin (NEGATIVE) Urine Urobilinogen (0-1) mg/dL Ur Leukocyte Esterase (NEGATIVE) Urine WBC (Auto) (0-5) /HPF Urine RBC (Auto) (0-2) /HPF U Epithel Cells (Auto) (FEW) /HPF Urine Culture Reflexed (NO) Urine Glucose (NEGATIVE) mg/dL Influenza Type A Ag (NEGATIVE) Influenza Type B Ag (NEGATIVE) RSV (PCR) (Negative) 04/25/18 Range/Units 13:04 WBC 13.6 H (4.0-10.5) K/mm3 RBC 2.81 L (4.1-5.4) M/mm3 Hgb 8.9 L (12.0-16.0) gm/dl Hct 28.4 L (35-47) % MCV 101.1 H (78-100) fl MCH 31.6 (26-32) pg MCHC 31.3 L (32-36) g/dl RDW 14.8 H (11.5-14.0) % Plt Count 226 (150-450) K/mm3 MPV 10.3 H (6-9.5) fl Gran % 81.2 H (36.0-66.0) % Eos # (Auto) 0.12 (0-0.5) Absolute Lymphs (auto) 1.23 (1.0-4.6) Absolute Monos (auto) 1.16 (0.0-1.3) Lymphocytes % 9.1 L (24.0-44.0) % Monocytes % 8.6 (0.0-12.0) % Eosinophils % 0.9 (0.00-5.0) % Basophils % 0.2 (0.0-0.4) % Absolute Granulocytes 11.01 H (1.4-6.9) Basophils # 0.03 (0-0.4) PT (9.95-12.35) SECONDS INR (0.8-3.0) APTT (25.3-37.0) SECONDS D-Dimer (215-500) ng/mL Puncture Site pCO2 (35-45) mmHg pO2 (75-100) mmHg Base Excess (-2.0-2.0) O2 Saturation (94-100) g/dF ABG pH (7.35-7.45) ABG HCO3 (22-28) ABG O2 Sat (Measured) (95-100) % Reese Test A-a Gradient a/A Ratio Hemoglobin Carboxyhemoglobin (0.0-6.9) % THgb Methemoglobin (1.4-1.5) % Temperature C POC O2 Flow Rate % Sodium (137-145) mmol/L Potassium (3.5-5.1) mmol/L Chloride (98-107) mmol/L Carbon Dioxide (22-30) mmol/L Anion Gap (5-15) MEQ/L BUN (7-17) mg/dL Creatinine (0.52-1.04) mg/dL Estimated GFR ML/MIN Glucose (74-106) mg/dL Lactic Acid (0.4-2.0) Calcium (8.4-10.2) mg/dL Total Bilirubin (0.2-1.3) mg/dL AST (14-36) U/L ALT (0-35) U/L Alkaline Phosphatase (38-126) U/L Troponin I (0.000-0.034) ng/mL NT-Pro-B Natriuret Pep (0-900) pg/mL Serum Total Protein (6.3-8.2) g/dL Albumin (3.5-5.0) g/dL Urine Color (YELLOW) Urine Appearance (CLEAR) Urine pH (5-6) Ur Specific [place] (1.005-1.025) Urine Protein (Negative) Urine Ketones (NEGATIVE) Urine Blood (0-5) [place]/ul Urine Nitrite (NEGATIVE) Urine Bilirubin (NEGATIVE) Urine Urobilinogen (0-1) mg/dL Ur Leukocyte Esterase (NEGATIVE) Urine WBC (Auto) (0-5) /HPF Urine RBC (Auto) (0-2) /HPF U Epithel Cells (Auto) (FEW) /HPF Urine Culture Reflexed (NO) Urine Glucose (NEGATIVE) mg/dL Influenza Type A Ag (NEGATIVE) Influenza Type B Ag (NEGATIVE) RSV (PCR) (Negative) - Progress Progress: improved Air Movement: fair Progress Note: 04/25/18 14:29 This is a 67-year-old white female with history of hypercholesterolemia, high blood pressure, diabetes type 2, hypothyroidism, colitis, diverticulitis, diverticulosis, GERD, anxiety, depression She arrives hypoxic and pale with the severe shortness of breath she states she' s been short of breath for a week she was apparently supposed to follow-up with her family doctor however was too sick to make it to the appointment today. Patient with bilateral wheezes and decreased breath sounds on auscultation to her lungs heart rate was regular Patient's EKG remarkable for sinus rhythm 72 bpm normal axis no acute ST or T wave changes X-ray of her chest remarkable for fairly extensive bilateral airspace infiltrates right greater than left consistent with bilateral pneumonia representing an unfavorable change from May 12, 2015 Patient with white blood cell 13.6 hemoglobin 8.9 hematocrit 28.4 platelets 226 patient with d-dimer of 1366 patient's GFR is 44 Patient's chemistry sodium 136 potassium 4.7 chloride 104 bicarbonate 25 BUN 26 creatinine 1.32 glucose 144 Patient with a troponin of 0.106 Patient with BNP of 7300 I've looked at the patient's chest x-ray I do feel that this possibly could also represent failure. Patient's arterial blood gases pH 7.39 PCO2 35 PO2 71 HCO3 321.2 sats 95.4 on 100% nonrebreather Patient has been given Rocephin 1 g IV she was given a DuoNeb treatment also Solu-Medrol 125 IV she is feeling better Will add Lasix 40 mg IV. Patient is feeling better , we will go ahead and contact [facility] one call. Impression 1 shortness of breath to hypoxia 3 pneumonia for increased troponin 5 increased d-dimer 6 bronchospasm 7 CHF 04/25/18 14:54 Case is discussed with Dr. Caicedo at [facility] through the one call. He will accept the patient as a transfer to [facility] ICU. Will give patient Lovenox 1 mg/kg subcutaneously prior to transfer. Patient is in improved condition. - Departure Time of Disposition: 14:55 Departure Disposition: Transfer ([facility] Dr. Caicedo) Clinical Impression: Shortness of breath, Hypoxia, increased troponin, Increased d-dimer, Bronchospasm Pneumonia Qualifiers: Pneumonia type: due to unspecified organism Laterality: bilateral Lung location : unspecified part of lung Qualified Code(s): J18.9 - Pneumonia, unspecified organism CHF (congestive heart failure) Qualifiers: Heart failure type: unspecified Heart failure chronicity: unspecified Qualified Code(s): I50.9 - Heart failure, unspecified Condition: Fair Critical Care Time: No Referrals: HOSEA ANTOINE [Primary Care Provider] - Instructions: Heart Failure
[2018-04-25 13:25] LABS: ABG SITE RIGHT RADIAL; ALLEN TEST OK? YES
[2018-04-25] MEDS ORDERED: ROCEPHIN 1 Gm-D5w 50 ml Bag** 1 G/50 ML IVPB IV STA (13:26)
[2018-04-25] MEDS ORDERED: solu-MEDROL 125 MG IV ONE (13:30)
[2018-04-25 13:42] LABS: BASOPHIL % 0.2 % (0.0-0.4); Basophil (Absolute #) 0.03 (0-0.4); Eosinophil % 0.9 % (0.00-5.0); Eosinophil (Absolute #) 0.12 (0-0.5); Granulocyte Absolute (ANC) 11.01 (1.4-6.9); Granulocytes % 81.2 % (36.0-66.0); Hematocrit 28.4 % (35-47); Hemoglobin 8.9 gm/dl (12.0-16.0); Lymphocyte (Absolute #) 1.23 (1.0-4.6); Lymphocytes % 9.1 % (24.0-44.0); Mean Cell Volume 101.1 fl (78-100); Mean Corpuscular Hgb Concent. 31.3 g/dl (32-36); Mean Platelet Volume 10.3 fl (6-9.5); Monocyte (Absolute #) 1.16 (0.0-1.3); Monocytes % 8.6 % (0.0-12.0); Platelet Count 226 K/mm3 (150-450); Red Blood Count 2.81 M/mm3 (4.1-5.4); Red Cell Distribution Width 14.8 % (11.5-14.0); White Blood Count 13.6 K/mm3 (4.0-10.5)
[2018-04-25 13:47] LABS: INR 1.28 (0.8-3.0); PROTIME 14.9 SECONDS (9.95-12.35)
[2018-04-25 13:48] LABS: Mean Corpuscular Hemoglobin 31.6 pg (26-32)
[2018-04-25 13:50] LABS: PTT 26.6 SECONDS (25.3-37.0)
[2018-04-25 14:01] LABS: ALBUMIN 3.6 g/dL (3.5-5.0); ANION GAP 11.8 MEQ/L (5-15); BILIRUBIN,TOTAL 0.6 mg/dL (0.2-1.3); Creatinine 1 1.32 mg/dL (0.52-1.04); Potassium 4.7 mmol/L (3.5-5.1); Total Protein 6.6 g/dL (6.3-8.2)
[2018-04-25] MEDS ORDERED: BABY ASPIRIN 81 MG CHEW PO ONE (14:08)
[2018-04-25] MEDS ORDERED: BABY ASPIRIN 81 MG CHEW ONE (14:11)
[2018-04-25] MEDS ORDERED: ROCEPHIN 1 Gm-D5w 50 ml Bag** 1 G/50 ML IVPB IV ONE (14:11)
[2018-04-25] MEDS ORDERED: solu-MEDROL 125 MG ONE (14:11)
[2018-04-25 14:13] LABS: INFLUENZA A NEGATIVE (NEGATIVE); INFLUENZA B NEGATIVE (NEGATIVE); RESPIRATORY SYNCTIAL VIRUS NEGATIVE (Negative)
[2018-04-25] MEDS ORDERED: Lasix 40 MG/4 ML IV ONE (14:16)
[2018-04-25] MEDS ORDERED: Lasix 40 MG/4 ML ONE (14:28)
[2018-04-25 14:43] LABS: Appearance CLEAR (CLEAR); Bilirubin NEGATIVE (NEGATIVE); Blood NEGATIVE Ery/ul (0-5); Glucose NEGATIVE (NEGATIVE); Ketones TRACE (NEGATIVE); Leukocyte Esterase NEGATIVE (NEGATIVE); Nitrite NEGATIVE (NEGATIVE); Protein,Urine Dip 30 (Negative); Specific Gravity 1.024 (1.005-1.025); Urobilinogen 2 mg/dL (0-1); WBC 0-2 /HPF (0-5)
[2018-04-25] MEDS ORDERED: ENOXAPARIN SODIUM SQ STA (14:52)
[2018-04-25] MEDS ORDERED: ENOXAPARIN SODIUM SQ ONE (14:59)
[2018-04-25 15:10] VITALS: BP 118/78; PULSE 67; O2SAT 91
== END 2018-04-25 16:10 | disposition home or self-care (01) ==
LOC: ED 12:53
DX: J18.9 Pneumonia, unspecified organism (principal); I50.9 Heart failure, unspecified; E78.00 Pure hypercholesterolemia, unspecified; I10 Essential (primary) hypertension; E11.9 Type 2 diabetes mellitus without complications; E03.9 Hypothyroidism, unspecified; F41.9 Anxiety disorder, unspecified; F32.9 Major depressive disorder, single episode, unspecified; Z79.899 Other long term (current) drug therapy
CPT/HCPCS: 36000; 36415; 36600; 71045; 80053; 81001; 82375; 82803; 83605; 83880; 84484; 85025; 85379; 85610; 85730; 87040; 87631; 93005; 93041; 94640; 96360; 96361; 96365; 96372; 96374; 96375; 99285; J0696; J1650; J1940; J2930; A9270-GY

== ENCOUNTER 2020-09-25 13:59 | Observation (INO) | payer MEDICARE ==
--- NOTE | 2020-09-25 14:21 | ERPHSYRPT ---
- History of Present Illness Time Seen by Provider: 09/25/20 14:15 Source: patient Exam Limitations: no limitations Patient Subjective Stated Complaint: "I feel weak and dehydrated" Triage Nursing Assessment: pt to ED c/o weakness and not feeling like herself this am. pt tearful and anxious on arrival. denies pain at this time. denies any COVID exposures or other associated sx. generalized weakness and fatigue reported. A&Ox3. Physician History: This is a 70-year-old white female who has a history of hypertension and presents with complaints of weakness and anxiety. Patient states that her symptoms began this morning. Patient arrives very tearful. Patient states she is concerned about the possibility of being dehydrated and malnourished. She denies chest pain. She denies headache. She denies vomiting or diarrhea. She has no abdominal pain. Timing/Duration: today Severity: moderate Associated Symptoms: weakness, other (Anxiety) Allergies/Adverse Reactions: meperidine HCl [From Demerol] Adverse Reaction (Mild, Verified 09/25/20 14:13) Vomiting Home Medications: Gabapentin 400 mg [Neurontin 400 MG] 800 mg PO TID 05/12/15 [History] Hydrocodone/APAP 10/325 mg [[place] 10/325 MG Tablet] 1 tab PO Q6H PRN PRN 12/04/16 [History] Levothyroxine Sodium 125 mcg PO DAILY 12/04/16 [History] Quinapril HCl 40 mg PO BID 12/04/16 [History] Trazodone HCl 150 mg PO HS 12/04/16 [History] Metformin HCl Xr 500 mg [Glucophage XR 500 MG] 1,000 mg PO BID 09/25/20 [History] PANTOPRAZOLE 40 mg Tablet [Protonix 40MG Tablet] 40 mg PO DAILY 09/25/20 [History] Hx Tetanus, Diphtheria Vaccination/Date Given: Yes Hx Influenza Vaccination/Date Given: Yes Hx Pneumococcal Vaccination/Date Given: Yes Travel Risk - International Travel Have you traveled outside of the country in past 3 weeks: No - Coronavirus Screening Are you exhibiting any of the following symptoms?: No Close contact with a COVID-19 positive Pt in past 14-21 Days: No - Vaccine Status Have you recieved a Covid-19 vaccination: Yes Ic Design Engineer: Unknown - Vaccination Dates Dates if Unknown: unknown, 2 doses - Review of Systems Constitutional: Weakness Eyes: No Symptoms Ears, Nose, & Throat: No Symptoms Respiratory: No Symptoms Cardiac: Palpitations Abdominal/Gastrointestinal: No Symptoms Genitourinary Symptoms: No Symptoms Musculoskeletal: No Symptoms Skin: No Symptoms Neurological: No Symptoms Psychological: Anxiety Endocrine: No Symptoms Hematologic/Lymphatic: No Symptoms Immunological/Allergic: No Symptoms All Other Systems: Reviewed and Negative - Past Medical History Pertinent Past Medical History: Yes Neurological History: No Pertinent History ENT History: No Pertinent History Cardiac History: High Cholesterol, Hypertension Respiratory History: No Pertinent History Endocrine Medical History: Diabetes Type II, Hypothyroidism Musculoskeletal History: No Pertinent History GI Medical History: Colitis, Diverticulitis, Diverticulosis, GERD, Other History: No Pertinent History Psycho-Social History: Anxiety, Depression Female Reproductive Disorders: No Pertinent History - Past Surgical History Past Surgical History: Yes Neuro Surgical History: No Pertinent History Cardiac: No Pertinent History Respiratory: No Pertinent History Gastrointestinal: Cholecystectomy Genitourinary: No Pertinent History Musculoskeletal: No Pertinent History Female Surgical History: Hysterectomy Other Surgical History: thryoid - Social History Smoking Status: Current every day smoker How long have you smoked: 10 years Exposure to second hand smoke: Yes Drug Use: none Patient Lives Alone: Yes - Female History Hx Now: No - Nursing Vital Signs Nursing Vital Signs: Initial Vital Signs Temperature 97.5 F 09/25/20 14:04 Pulse Rate 82 09/25/20 14:04 Respiratory Rate 18 09/25/20 14:04 Pain Scale Pain Intensity 0 - Physical Exam General Appearance: mild distress, alert, anxiety Eye Exam: PERRL/EOMI, eyes nml inspection Ears, Nose, Throat Exam: normal ENT inspection, moist mucous membranes Neck Exam: normal inspection, non-tender, supple, full range of motion Respiratory Exam: normal breath sounds, lungs clear, airway intact, No chest tenderness, No respiratory distress Cardiovascular Exam: regular rate/rhythm, normal heart sounds, normal peripheral pulses Gastrointestinal/Abdomen Exam: soft, normal bowel sounds, No tenderness Pelvic Exam: not done Back Exam: normal inspection, normal range of motion, No CVA tenderness, No vertebral tenderness Extremity Exam: normal inspection, normal range of motion, pelvis stable Neurologic Exam: alert, oriented x 3, cooperative, 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 There are no significant changes when compared to EKG dated 04/25/2018.) Ordered Tests: Active Orders 24 hr Category Date Time Status Dispatcher Maintenance Service STAT Care 09/25/20 14:45 Active EKG-ER Only STAT Care 09/25/20 14:44 Active IV Insertion STAT Care 09/25/20 14:44 Active Pulse Oximetry (ED) STAT Care 09/25/20 14:44 Active HEAD WITHOUT CONTRAST [CT] Stat Exams 09/25/20 15:53 Taken CBC W DIFF Stat Lab 09/25/20 14:44 Completed CMP Stat Lab 09/25/20 14:44 Completed Lactic Acid Stat Lab 09/25/20 14:44 Completed MAGNESIUM Stat Lab 09/25/20 14:44 Completed NT PRO BNP Stat Lab 09/25/20 14:44 Completed T4 (Thyroxine) Stat Lab 09/25/20 Completed TROPONIN Q3H Lab 09/25/20 14:45 Completed TROPONIN Q3H Lab 09/25/20 17:46 Completed TROPONIN Q3H Lab 09/25/20 20:45 Ordered TROPONIN Q3H Lab 09/25/20 23:45 Ordered TROPONIN Q3H Lab 09/26/20 02:45 Ordered TSH [TSH, 3RD Generation] Stat Lab 09/25/20 15:18 Completed UA W/RFX UR CULTURE Stat Lab 09/25/20 15:10 Completed Transfer Order Routine Transfer 09/25/20 Ordered Medication Summary Discontinued Medications Generic Name Dose Route Start Last Admin Trade Name Freq PRN Reason Stop Dose Admin Clonidine 0.1 mg 09/25/20 17:45 09/25/20 17:51 Catapres 0.1 Mg PO 09/25/20 17:46 0.1 mg STAT ONE Administration Clonidine Confirm 09/25/20 17:50 Catapres 0.1 Mg Administered 09/25/20 17:51 Dose 0.1 mg .ROUTE .STK-MED ONE Enalaprilat 1.25 mg 09/25/20 14:47 09/25/20 15:40 Vasotec I.V. 2.5 Mg IV 09/25/20 14:48 1.25 mg STAT ONE Administration Enalaprilat Confirm 09/25/20 15:36 Vasotec I.V. 2.5 Mg Administered 09/25/20 15:37 Dose 2.5 mg IV .STK-MED ONE Enalaprilat 1.25 mg 09/25/20 16:52 09/25/20 16:56 Vasotec I.V. 2.5 Mg IV 09/25/20 16:53 1.25 mg STAT ONE Administration Enalaprilat Confirm 09/25/20 16:54 Vasotec I.V. 2.5 Mg Administered 09/25/20 16:55 Dose 2.5 mg IV .STK-MED ONE Sodium Chloride 1,000 mls @ 999 mls/hr 09/25/20 14:48 09/25/20 16:55 Sodium Chloride 0.9% 1000 Ml IV 09/25/20 15:48 Infused .Q1H1M STA Infusion Sodium Chloride Confirm 09/25/20 15:36 Sodium Chloride 0.9% 1000 Ml Administered 09/25/20 15:37 Dose 1,000 mls @ ud .ROUTE .STK-MED ONE Lorazepam 1 mg 09/25/20 14:45 09/25/20 15:40 Ativan 2 Mg/1 Ml Vial IV 09/25/20 14:46 1 mg STAT ONE Administration Lorazepam Confirm 09/25/20 15:36 Ativan 2 Mg/1 Ml Vial Administered 09/25/20 15:37 Dose 2 mg .ROUTE .STK-MED ONE Lorazepam 1 mg 09/25/20 18:43 09/25/20 18:47 Ativan 2 Mg/1 Ml Vial IV 09/25/20 18:44 1 mg STAT ONE Administration Lorazepam Confirm 09/25/20 18:46 Ativan 2 Mg/1 Ml Vial Administered 09/25/20 18:47 Dose 2 mg .ROUTE .STK-MED ONE Lab/Rad Data: Laboratory Result Diagrams 09/25/20 14:44 09/25/20 14:44 Laboratory Results 09/25/20 09/25/20 09/25/20 Range/Units Unknown 17:46 15:18 WBC (4.0-10.5) K/mm3 RBC (4.1-5.4) M/mm3 Hgb (12.0-16.0) gm/dl Hct (35-47) % MCV (78-100) fl MCH (26-32) pg MCHC (32-36) g/dl RDW (11.5-14.0) % Plt Count (150-450) K/mm3 MPV (7.5-11.0) fl Gran % (36.0-66.0) % Eos # (Auto) (0-0.5) Absolute Lymphs (auto) (1.0-4.6) Absolute Monos (auto) (0.0-1.3) Lymphocytes % (24.0-44.0) % Monocytes % (0.0-12.0) % Eosinophils % (0.00-5.0) % Basophils % (0.0-0.4) % Absolute Granulocytes (1.4-6.9) Basophils # (0-0.4) Sodium (137-145) mmol/L Potassium (3.5-5.1) mmol/L Chloride (98-107) mmol/L Carbon Dioxide (22-30) mmol/L Anion Gap (5-15) MEQ/L BUN (7-17) mg/dL Creatinine (0.52-1.04) mg/dL Estimated GFR ML/MIN Glucose (74-106) mg/dL Lactic Acid (0.4-2.0) Calcium (8.4-10.2) mg/dL Magnesium (1.6-2.3) mg/dL Total Bilirubin (0.2-1.3) mg/dL AST (14-36) U/L ALT (0-35) U/L Alkaline Phosphatase (38-126) U/L Troponin I < 0.012 (0.000-0.034) ng/mL NT-Pro-B Natriuret Pep (0-900) pg/mL Serum Total Protein (6.3-8.2) g/dL Albumin (3.5-5.0) g/dL Thyroxine (T4) 11.2 H (5.53-10.96) ug/dL TSH 3rd Generation 0.993 (0.47-4.68) mIU/L Urine Color (YELLOW) Urine Appearance (CLEAR) Urine pH (5-6) Ur Specific [place] (1.005-1.025) Urine Protein (Negative) Urine Ketones (NEGATIVE) Urine Blood (0-5) [place]/ul Urine Nitrite (NEGATIVE) Urine Bilirubin (NEGATIVE) Urine Urobilinogen (0-1) mg/dL Ur Leukocyte Esterase (NEGATIVE) Urine WBC (Auto) (0-5) /HPF Urine RBC (Auto) (0-2) /HPF U Epithel Cells (Auto) (FEW) /HPF Urine Bacteria (Auto) (NEGATIVE) /HPF Urine Mucus (Auto) (NEGATIVE) /HPF Urine Culture Reflexed (NO) Urine Glucose (NEGATIVE) mg/dL 09/25/20 09/25/20 09/25/20 Range/Units 15:10 14:45 14:44 WBC (4.0-10.5) K/mm3 RBC (4.1-5.4) M/mm3 Hgb (12.0-16.0) gm/dl Hct (35-47) % MCV (78-100) fl MCH (26-32) pg MCHC (32-36) g/dl RDW (11.5-14.0) % Plt Count (150-450) K/mm3 MPV (7.5-11.0) fl Gran % (36.0-66.0) % Eos # (Auto) (0-0.5) Absolute Lymphs (auto) (1.0-4.6) Absolute Monos (auto) (0.0-1.3) Lymphocytes % (24.0-44.0) % Monocytes % (0.0-12.0) % Eosinophils % (0.00-5.0) % Basophils % (0.0-0.4) % Absolute Granulocytes (1.4-6.9) Basophils # (0-0.4) Sodium 133 L (137-145) mmol/L Potassium 4.7 (3.5-5.1) mmol/L Chloride 99 (98-107) mmol/L Carbon Dioxide 24 (22-30) mmol/L Anion Gap 14.8 (5-15) MEQ/L BUN 12 (7-17) mg/dL Creatinine 0.68 (0.52-1.04) mg/dL Estimated GFR > 60.0 ML/MIN Glucose 127 H (74-106) mg/dL Lactic Acid (0.4-2.0) Calcium 9.6 (8.4-10.2) mg/dL Magnesium 1.5 L (1.6-2.3) mg/dL Total Bilirubin 0.20 (0.2-1.3) mg/dL AST 34 (14-36) U/L ALT 28 (0-35) U/L Alkaline Phosphatase 74 (38-126) U/L Troponin I < 0.012 (0.000-0.034) ng/mL NT-Pro-B Natriuret Pep 797 (0-900) pg/mL Serum Total Protein 7.0 (6.3-8.2) g/dL Albumin 4.2 (3.5-5.0) g/dL Thyroxine (T4) (5.53-10.96) ug/dL TSH 3rd Generation (0.47-4.68) mIU/L Urine Color STRAW (YELLOW) Urine Appearance CLEAR (CLEAR) Urine pH 7.0 (5-6) Ur Specific [place] 1.004 (1.005-1.025) Urine Protein NEGATIVE (Negative) Urine Ketones NEGATIVE (NEGATIVE) Urine Blood NEGATIVE (0-5) [place]/ul Urine Nitrite NEGATIVE (NEGATIVE) Urine Bilirubin NEGATIVE (NEGATIVE) Urine Urobilinogen NEGATIVE (0-1) mg/dL Ur Leukocyte Esterase NEGATIVE (NEGATIVE) Urine WBC (Auto) 0-2 (0-5) /HPF Urine RBC (Auto) NONE (0-2) /HPF U Epithel Cells (Auto) NONE (FEW) /HPF Urine Bacteria (Auto) NONE (NEGATIVE) /HPF Urine Mucus (Auto) SLIGHT (NEGATIVE) /HPF Urine Culture Reflexed NO (NO) Urine Glucose NEGATIVE (NEGATIVE) mg/dL 09/25/20 09/25/20 Range/Units 14:44 14:44 WBC 7.9 (4.0-10.5) K/mm3 RBC 4.07 L (4.1-5.4) M/mm3 Hgb 13.0 (12.0-16.0) gm/dl Hct 40.2 (35-47) % MCV 98.8 (78-100) fl MCH 31.9 (26-32) pg MCHC 32.3 (32-36) g/dl RDW 14.0 (11.5-14.0) % Plt Count 218 (150-450) K/mm3 MPV 10.5 (7.5-11.0) fl Gran % 65.1 (36.0-66.0) % Eos # (Auto) 0.12 (0-0.5) Absolute Lymphs (auto) 1.93 (1.0-4.6) Absolute Monos (auto) 0.67 (0.0-1.3) Lymphocytes % 24.5 (24.0-44.0) % Monocytes % 8.5 (0.0-12.0) % Eosinophils % 1.5 (0.00-5.0) % Basophils % 0.4 (0.0-0.4) % Absolute Granulocytes 5.14 (1.4-6.9) Basophils # 0.03 (0-0.4) Sodium (137-145) mmol/L Potassium (3.5-5.1) mmol/L Chloride (98-107) mmol/L Carbon Dioxide (22-30) mmol/L Anion Gap (5-15) MEQ/L BUN (7-17) mg/dL Creatinine (0.52-1.04) mg/dL Estimated GFR ML/MIN Glucose (74-106) mg/dL Lactic Acid 1.3 (0.4-2.0) Calcium (8.4-10.2) mg/dL Magnesium (1.6-2.3) mg/dL Total Bilirubin (0.2-1.3) mg/dL AST (14-36) U/L ALT (0-35) U/L Alkaline Phosphatase (38-126) U/L Troponin I (0.000-0.034) ng/mL NT-Pro-B Natriuret Pep (0-900) pg/mL Serum Total Protein (6.3-8.2) g/dL Albumin (3.5-5.0) g/dL Thyroxine (T4) (5.53-10.96) ug/dL TSH 3rd Generation (0.47-4.68) mIU/L Urine Color (YELLOW) Urine Appearance (CLEAR) Urine pH (5-6) Ur Specific [place] (1.005-1.025) Urine Protein (Negative) Urine Ketones (NEGATIVE) Urine Blood (0-5) [place]/ul Urine Nitrite (NEGATIVE) Urine Bilirubin (NEGATIVE) Urine Urobilinogen (0-1) mg/dL Ur Leukocyte Esterase (NEGATIVE) Urine WBC (Auto) (0-5) /HPF Urine RBC (Auto) (0-2) /HPF U Epithel Cells (Auto) (FEW) /HPF Urine Bacteria (Auto) (NEGATIVE) /HPF Urine Mucus (Auto) (NEGATIVE) /HPF Urine Culture Reflexed (NO) Urine Glucose (NEGATIVE) mg/dL - Progress Progress: improved, re-examined Progress Note: 09/25/20 18:35 CAT scan of the head without contrast shows no acute intracranial abnormality Medical decision making: This patient's blood pressure is not under adequate control here in the emergency department. It is waxing and waning depending on the treatment. Patient has hypertensive urgency and needs placement in observation on a monitored bed. Patient prefers to go home but will come into the hospital for further treatment. Patient is very anxious as well and that seems to be contributing to her elevated blood pressure. When she is left alone in the room her blood pressure seems to drop 20-30 points. However, when we entered the room it increases back up 20-30 points. I will contact the hospitalist rotational moulding operator and we will place her in observation on telemetry 09/25/20 19:[address] Modi, the hospitalist covering for the hospital [facility]. He agrees the patient should be placed in a monitored bed we will place her in observation. We will give her intravenous anxiolytic as well as IV Vasotec with parameters. Discussed with : Derrick Counseled pt/family regarding: lab results, diagnosis, rad results - Departure Departure Disposition: Observation Clinical Impression: Hypertensive urgency, Anxiety Condition: Fair Critical Care Time: Yes Critical Care Time(excluding separately billable procedures): Critical 30-74 mins Referrals: AURORA MARI MD [Primary Care Provider] -
[2020-09-25] MEDS ORDERED: Ativan 2 MG/1 ML VIAL IV ONE ×2 (14:45→18:43)
[2020-09-25] MEDS ORDERED: VASOTEC I.V. 2.5 MG IV ONE ×4 (14:47→16:54)
[2020-09-25] MEDS ORDERED: Sodium Chloride 0.9% 1000 ML 1,000 ML IV STA (14:48)
[2020-09-25 14:59] LABS: Absolute Neutrophil Ct (ANC) 5.14 (1.4-6.9); BASOPHIL % 0.4 % (0.0-0.4); Basophil (Absolute #) 0.03 (0-0.4); Eosinophil % 1.5 % (0.00-5.0); Eosinophil (Absolute #) 0.12 (0-0.5); Hematocrit 40.2 % (35-47); Lymphocyte (Absolute #) 1.93 (1.0-4.6); Lymphocytes % 24.5 % (24.0-44.0); Mean Cell Volume 98.8 fl (78-100); Mean Corpuscular Hemoglobin 31.9 pg (26-32); Mean Corpuscular Hgb Concent. 32.3 g/dl (32-36); Mean Platelet Volume 10.5 fl (7.5-11.0); Monocyte (Absolute #) 0.67 (0.0-1.3); Monocytes % 8.5 % (0.0-12.0); Neutrophil % 65.1 % (36.0-66.0); Platelet Count 218 K/mm3 (150-450); Red Blood Count 4.07 M/mm3 (4.1-5.4); White Blood Count 7.9 K/mm3 (4.0-10.5)
[2020-09-25 15:14] LABS: ALBUMIN 4.2 g/dL (3.5-5.0); ALKALINE PHOSPHATASE 74 U/L (38-126); ANION GAP 14.8 MEQ/L (5-15); BLOOD UREA NITROGEN 12 mg/dL (7-17); CHLORIDE 99 mmol/L (98-107); Calcium 9.6 mg/dL (8.4-10.2); Carbon Dioxide 24 mmol/L (22-30); Creatinine 1 0.68 mg/dL (0.52-1.04); EST GLOMERULAR FILTRATION RATE > 60.0 ML/MIN; Glucose 127 mg/dL (74-106); MAGNESIUM 1.5 mg/dL (1.6-2.3); NT PRO BNP 797 pg/mL (0-900); Potassium 4.7 mmol/L (3.5-5.1); SGOT/AST 34 U/L (14-36); SGPT/ALT 28 U/L (0-35); SODIUM 133 mmol/L (137-145)
[2020-09-25] MEDS ORDERED: Ativan 2 MG/1 ML VIAL ONE ×2 (15:36→18:46)
[2020-09-25] MEDS ORDERED: Sodium Chloride 0.9% 1000 ML 1,000 ML ONE (15:36)
[2020-09-25 16:28] LABS: Appearance CLEAR (CLEAR); Bilirubin NEGATIVE (NEGATIVE); Blood NEGATIVE Ery/ul (0-5); Glucose NEGATIVE (NEGATIVE); Ketones NEGATIVE (NEGATIVE); Leukocyte Esterase NEGATIVE (NEGATIVE); Mucus SLIGHT /HPF (NEGATIVE); Nitrite NEGATIVE (NEGATIVE); Protein,Urine Dip NEGATIVE (Negative); Specific Gravity 1.004 (1.005-1.025); Urobilinogen NEGATIVE mg/dL (0-1); WBC 0-2 /HPF (0-5)
[2020-09-25] MEDS ORDERED: Catapres 0.1 MG PO ONE (17:45)
[2020-09-25] MEDS ORDERED: Catapres 0.1 MG ONE (17:50)
--- NOTE | 2020-09-25 19:57 | XRAY ---
Indication: Confusion Hypertension. Multiple contiguous axial images obtained through the head without contrast. Comparison: June 23, 2016. Again age-appropriate global atrophy and minimal periventricular degenerative micro-ischemia bilaterally. Stable remote lacunar infarct left basal ganglia. No acute intracranial hemorrhage, abnormal extra-axial fluid collection, or mass effect. Fourth ventricle is midline without hydrocephalus. Bony calvarium intact. Visualized paranasal sinuses and mastoid air cells are clear. Impression: Continued nonacute senile brain with remote lacunar infarct left basal ganglia. Comment: Preliminary interpretation made by C. No critical discrepancy.
[2020-09-25] MEDS ORDERED: Zofran 4 MG/2 ML VIAL IV PRN (21:06)
[2020-09-25] MEDS ORDERED: TYLENOL 325 MG PO PRN (21:06)
[2020-09-25] MEDS: VASOTEC I.V. 2.5 MG IV SCH (21:57)
[2020-09-25] MEDS ORDERED: HYDROCODONE-ACETAMIN 10-325 MG PO PRN (22:15)
[2020-09-25] MEDS ORDERED: Desyrel 150 MG PO SCH (22:18)
[2020-09-25] MEDS: Neurontin 400 MG PO SCH (23:32)
[2020-09-25] MEDS ORDERED: Catapres 0.1 MG PO PRN (23:41)
[2020-09-25] MEDS: Catapres 0.1 MG PO SCH (23:49)
[2020-09-25] MEDS: Ativan 2 MG/1 ML VIAL IV PRN (23:50)
[2020-09-26 02:57] LABS: Absolute Neutrophil Ct (ANC) 3.93 (1.4-6.9); BASOPHIL % 0.7 % (0.0-0.4); Basophil (Absolute #) 0.05 (0-0.4); Eosinophil % 1.5 % (0.00-5.0); Hematocrit 36.9 % (35-47); Hemoglobin 11.7 gm/dl (12.0-16.0); Lymphocyte (Absolute #) 1.96 (1.0-4.6); Lymphocytes % 29.2 % (24.0-44.0); Mean Cell Volume 98.9 fl (78-100); Mean Corpuscular Hemoglobin 31.4 pg (26-32); Mean Corpuscular Hgb Concent. 31.7 g/dl (32-36); Mean Platelet Volume 10.1 fl (7.5-11.0); Monocyte (Absolute #) 0.68 (0.0-1.3); Monocytes % 10.1 % (0.0-12.0); Neutrophil % 58.5 % (36.0-66.0); Platelet Count 177 K/mm3 (150-450); Red Blood Count 3.73 M/mm3 (4.1-5.4); White Blood Count 6.7 K/mm3 (4.0-10.5)
[2020-09-26 03:42] LABS: ALBUMIN 3.5 g/dL (3.5-5.0); ALKALINE PHOSPHATASE 57 U/L (38-126); ANION GAP 12.2 MEQ/L (5-15); BLOOD UREA NITROGEN 12 mg/dL (7-17); CHLORIDE 106 mmol/L (98-107); Calcium 9.2 mg/dL (8.4-10.2); Carbon Dioxide 23 mmol/L (22-30); Creatinine 1 0.63 mg/dL (0.52-1.04); EST GLOMERULAR FILTRATION RATE > 60.0 ML/MIN; Glucose 106 mg/dL (74-106); Potassium 4.3 mmol/L (3.5-5.1); SGOT/AST 27 U/L (14-36); SGPT/ALT 22 U/L (0-35); SODIUM 137 mmol/L (137-145); Total Protein 6.1 g/dL (6.3-8.2)
[2020-09-26] MEDS: VASOTEC I.V. 2.5 MG IV SCH (04:01)
[2020-09-26] MEDS: Catapres 0.1 MG PO SCH (06:10)
[2020-09-26] MEDS ORDERED: Glucophage XR 500 MG PO SCH (08:00)
[2020-09-26] MEDS: Neurontin 400 MG PO SCH ×2 (09:40→14:58)
[2020-09-26] MEDS ORDERED: SYNTHROID 150 MCG PO SCH (10:00)
[2020-09-26] MEDS ORDERED: ECOTRIN 81 MG PO SCH (10:00)
[2020-09-26] MEDS ORDERED: Accupril 10MG Tablet PO SCH (10:00)
[2020-09-26] MEDS ORDERED: QUINAPRIL HCL 40 MG PO SCH (10:00)
[2020-09-26] MEDS ORDERED: VASOTEC I.V. 2.5 MG IV SCH (10:00)
[2020-09-26] MEDS ORDERED: SYNTHROID 125 MCG PO SCH (10:00)
[2020-09-26] MEDS ORDERED: Protonix 40MG Tablet PO SCH (10:00)
[2020-09-26] MEDS ORDERED: Catapres 0.1 MG PO PRN (10:25)
[2020-09-26] MEDS ORDERED: NORVASC 5 MG PO ONE (10:30)
[2020-09-26] MEDS: Ativan 2 MG/1 ML VIAL IV PRN (11:57)
[2020-09-26] MEDS ORDERED: Catapres 0.1 MG PO SCH (12:00)
[2020-09-26 17:00] VITALS: BP 142/66; PULSE 72; O2SAT 93
--- NOTE | 2020-09-27 08:24 | PCM.SSS ---
History of Present Illness - Chief Complaint Chief Complaint: high blood pressure for 2-3 days History of Present Illness: is a 70 year old female.who has a history of hypertension and presents with complaints of weakness and anxiety. Patient states that her symptoms began this morning. Patient arrives very tearful. Patient states she is concerned about the possibility of being dehydrated and malnourished. She denies chest pain. She denies headache. She denies vomiting or diarrhea. She has no abdominal pain. Timing/Duration: today Severity: moderate Associated Symptoms: weakness - Review of Systems Constitutional: No Fever, No Chills Eyes: No Symptoms Ears, Nose, & Throat: No Symptoms Respiratory: No Cough, No Short Of Breath Cardiac: No Chest Pain, No Edema, No Syncope Abdominal/Gastrointestinal: No Abdominal Pain, No Nausea, No Vomiting, No Diarrhea Genitourinary Symptoms: No Dysuria Musculoskeletal: No Back Pain, No Neck Pain Skin: No Rash Neurological: Headache, No Dizziness, No Focal Weakness, No Sensory Changes Psychological: No Symptoms Endocrine: No Symptoms Hematologic/Lymphatic: No Symptoms Immunological/Allergic: No Symptoms Medications & Allergies Home Medications: Home Medication List Gabapentin 400 mg [Neurontin 400 MG] 800 mg PO TID 05/12/15 [History Conf irmed 09/25/20] Hydrocodone/APAP 10/325 mg [[place] 10/325 MG TableT] 1 tab PO Q6H PRN PRN 12/04/16 [History Confirmed 09/25/20] Levothyroxine Sodium 125 mcg PO DAILY 12/04/16 [History Confirmed 09/25/20] Quinapril HCl 40 mg PO DAILY 12/04/16 [History Confirmed 09/25/20] Trazodone HCl 150 mg PO HS 12/04/16 [History Confirmed 09/25/20] Aspirin EC 81 mg [Ecotrin 81 mg] 81 mg PO DAILY 09/25/20 [History Confirmed 09/25/20] Metformin HCl Xr 500 mg [Glucophage XR 500 MG] 1,000 mg PO BID 09/25/20 [History Confirmed 09/25/20] PANTOPRAZOLE 40 mg Tablet [Protonix 40MG Tablet] 40 mg PO DAILY 09/25/20 [History Confirmed 09/25/20] Amlodipine Besylate 5 mg [Norvasc 5 mg] 10 mg PO HS 30 Days #30 tablet 09/26/20 [Rx] Clonidine HCl 0.1 mg [Catapres 0.1 MG] 0.1 mg PO BID 30 Days #60 tablet 09/26/20 [Rx] Allergies/Adverse Reactions: Allergies Allergy/AdvReac Type Severity Reaction Status Date / Time meperidine HCl [From Demerol] AdvReac Mild Vomiting Verified 09/25/20 14:13 - Past Medical History Past Medical History: Yes Neurological History: No Pertinent History ENT History: No Pertinent History Cardiac History: High Cholesterol, Hypertension Respiratory History: No Pertinent History Endocrine Medical History: Diabetes Type II, Hypothyroidism Musculoskelatal History: No Pertinent History GI Medical History: Colitis, Diverticulitis, Diverticulosis, GERD, Other History: No Pertinent History Pyscho-Social History: Anxiety, Depression Reproductive Disorders: No Pertinent History - Female History Are you now?: No - Past Surgical History Past Surgical History: Yes Neuro Surgical History: No Pertinent History Cardiac History: No Pertinent History Respiratory Surgery: No Pertinent History GI Surgical History: Cholecystectomy Genitourinary Surgical Hx: No Pertinent History Musculskeletal Surgical Hx: No Pertinent History Female Surgical History: Hysterectomy Other Surgical History: thryoid - Social History Smoking Status: Current every day smoker How long have you smoked: 20 years Exposure to second hand smoke: Yes Alcohol: None Drug Use: none - Physical Exam Vital Signs: Vital Signs - 24 hr Temp Pulse Resp BP Pulse Ox 09/26/20 16:58 72 14 142/66 93 L 09/26/20 15:30 70 16 133/59 94 L 09/26/20 13:50 98.9 F 66 16 184/77 90 L 09/26/20 09:40 61 16 162/74 96 09/26/20 09:00 99.0 F 54 L 20 172/74 95 General Appearance: no apparent distress, alert Neurologic Exam: alert, oriented x 3, cooperative, normal mood/affect, nml cerebellar function, nml station & gait, sensation nml, No motor deficits Eye Exam: PERRL/EOMI, eyes nml inspection Ears, Nose, Throat Exam: normal ENT inspection, TMs normal, pharynx normal, mo ist mucous membranes Neck Exam: normal inspection, non-tender, supple, full range of motion Respiratory Exam: normal breath sounds, lungs clear, No respiratory distress Cardiovascular Exam: regular rate/rhythm, normal heart sounds, normal peripheral pulses Gastrointestinal/Abdomen Exam: soft, normal bowel sounds, No tenderness, No mass Back Exam: normal inspection, normal range of motion, No CVA tenderness, No vertebral tenderness Extremity Exam: normal inspection, normal range of motion, pelvis stable Skin Exam: normal color, warm, dry, No rash Lymphatic Exam: No adenopathy Results - Labs Lab/Micro Results: Lab Results-Last 24 Hours 09/26/20 Range/Units 11:31 POC Glucometer 121 H (74 to 106) mg/dL Accuchecks Date 09/26/20 Time 11:30 - Radiology Impressions Radiology Exams & Impressions: Radiology Procedures Category Date Time Status HEAD WITHOUT CONTRAST [CT] Stat Exams 09/25/20 15:53 Completed Assessment/Plan (1) Hypertensive urgency Status: Acute Assessment & Plan: Chief Complaint Diagnosis hypertensive urgency Allergies Allergy/AdvReac Type Severity Reaction Status Date / Time meperidine HCl [From Demerol] AdvReac Mild Vomiting Verified 09/25/20 14:13 Vital Signs (Last 24 hours) Temp Pulse Resp BP Pulse Ox 09/26/20 16:58 72 14 142/66 93 L 09/26/20 15:30 70 16 133/59 94 L 09/26/20 13:50 98.9 F 66 16 184/77 90 L 09/26/20 09:40 61 16 162/74 96 09/26/20 09:00 99.0 F 54 L 20 172/74 95 Home Medications Medication Instructions Recorded Confirmed Last Taken Type Aspirin EC 81 mg [Ecotrin 81 81 mg PO DAILY 09/25/20 09/25/20 Unknown History mg] Metformin HCl Xr 500 mg 1,000 mg PO BID 09/25/20 09/25/20 09/25/20 History [Glucophage XR 500 MG] PANTOPRAZOLE 40 mg Tablet 40 mg PO DAILY 09/25/20 09/25/20 09/25/20 History [Protonix 40MG Tablet] Amlodipine Besylate 5 mg 10 mg PO HS 30 Days #30 tablet 09/26/20 Unknown Rx [Norvasc 5 mg] Clonidine HCl 0.1 mg [Catapres 0.1 mg PO BID 30 Days #60 tablet 09/26/20 Unknown Rx 0.1 MG] Current Medications Discontinued Medications Generic Name Dose Route Start Last Admin Trade Name Louis PRN Reason Stop Dose Admin Acetaminophen 650 mg 09/25/20 21:06 Tylenol 325 Mg PO 10/25/20 21:05 Q4H PRN PRN PAIN, FEVER, HEADACHE Hydrocodone Bitart/Acetaminophen 1 tablet 09/25/20 22:15 09/26/20 09:39 Hydrocodone-Acetamin 10-325 Mg PO 09/30/20 22:14 1 tablet Q6H PRN PRN Administration PAIN Amlodipine Besylate 5 mg 09/26/20 10:30 09/26/20 10:33 Norvasc 5 Mg PO 09/26/20 10:31 5 mg ONCE ONE Administration Aspirin 81 mg 09/26/20 10:00 09/26/20 09:40 Ecotrin 81 Mg PO 10/26/20 09:59 81 mg DAILY RENE Administration Clonidine 0.1 mg 09/25/20 17:45 09/25/20 17:51 Catapres 0.1 Mg PO 09/25/20 17:46 0.1 mg STAT ONE Administration Clonidine Confirm 09/25/20 17:50 Catapres 0.1 Mg Administered 09/25/20 17:51 Dose 0.1 mg .ROUTE .STK-MED ONE Clonidine 0.1 mg 09/25/20 23:41 Catapres 0.1 Mg PO 10/25/20 23:40 Q6H PRN PRN ELEVATED BLOOD PRESSURE Clonidine 0.1 mg 09/25/20 23:46 09/26/20 06:10 Catapres 0.1 Mg PO 10/25/20 23:44 0.1 mg Q6H RENE Administration Clonidine 0.1 mg 09/26/20 12:00 Catapres 0.1 Mg PO 10/26/20 11:59 Q6HT RENE Clonidine 0.1 mg 09/26/20 10:25 09/26/20 11:57 Catapres 0.1 Mg PO 10/26/20 10:24 0.1 mg Q6H PRN PRN Administration HYPERTENSION Enalaprilat 1.25 mg 09/25/20 14:47 09/25/20 15:40 Vasotec I.V. 2.5 Mg IV 09/25/20 14:48 1.25 mg STAT ONE Administration Enalaprilat Confirm 09/25/20 15:36 Vasotec I.V. 2.5 Mg Administered 09/25/20 15:37 Dose 2.5 mg IV .STK-MED ONE Enalaprilat 1.25 mg 09/25/20 16:52 09/25/20 16:56 Vasotec I.V. 2.5 Mg IV 09/25/20 16:53 1.25 mg STAT ONE Administration Enalaprilat Confirm 09/25/20 16:54 Vasotec I.V. 2.5 Mg Administered 09/25/20 16:55 Dose 2.5 mg IV .STK-MED ONE Enalaprilat 1.25 mg 09/25/20 21:06 09/26/20 04:01 Vasotec I.V. 2.5 Mg IV 10/25/20 21:05 1.25 mg Q6H RENE Administration Enalaprilat 1.25 mg 09/26/20 10:00 09/26/20 09:42 Vasotec I.V. 2.5 Mg IV 10/26/20 09:59 Not Given Q6H RENE Gabapentin 800 mg 09/25/20 22:15 09/26/20 14:58 Neurontin 400 Mg PO 10/25/20 22:14 800 mg TID RENE Administration Sodium Chloride 1,000 mls @ 999 mls/hr 09/25/20 14:48 09/25/20 16:55 Sodium Chloride 0.9% 1000 Ml IV 09/25/20 15:48 Infused .Q1H1M STA Infusion Sodium Chloride Confirm 09/25/20 15:36 Sodium Chloride 0.9% 1000 Ml Administered 09/25/20 15:37 Dose 1,000 mls @ ud .ROUTE .STK-MED ONE Levothyroxine Sodium 125 mcg 09/26/20 10:00 09/26/20 09:39 Synthroid 125 Mcg PO 10/26/20 09:59 125 mcg DAILY RENE Administration Lorazepam 1 mg 09/25/20 14:45 09/25/20 15:40 Ativan 2 Mg/1 Ml Vial IV 09/25/20 14:46 1 mg STAT ONE Administration Lorazepam Confirm 09/25/20 15:36 Ativan 2 Mg/1 Ml Vial Administered 09/25/20 15:37 Dose 2 mg .ROUTE .STK-MED ONE Lorazepam 1 mg 09/25/20 18:43 09/25/20 18:47 Ativan 2 Mg/1 Ml Vial IV 09/25/20 18:44 1 mg STAT ONE Administration Lorazepam Confirm 09/25/20 18:46 Ativan 2 Mg/1 Ml Vial Administered 09/25/20 18:47 Dose 2 mg .ROUTE .STK-MED ONE Lorazepam 1 mg 09/25/20 21:06 09/26/20 11:57 Ativan 2 Mg/1 Ml Vial IV 10/25/20 21:05 1 mg Q4H PRN PRN Administration ANXIETY Metformin HCl 1,000 mg 09/26/20 08:00 09/26/20 07:51 Glucophage Xr 500 Mg PO 10/26/20 07:59 1,000 mg BIDWM RENE Administration Ondansetron HCl 4 mg 09/25/20 21:06 Zofran 4 Mg/2 Ml Vial IV 10/25/20 21:05 Q6H PRN PRN NAUSEA/VOMITING Pantoprazole Sodium 40 mg 09/26/20 10:00 09/26/20 09:40 Protonix 40mg Tablet PO 10/26/20 09:59 40 mg DAILY RNEE Administration Quinapril HCl 40 mg 09/26/20 10:00 09/26/20 09:40 Accupril 10mg Tablet PO 10/26/20 09:59 40 mg DAILY RENE Administration Trazodone HCl 150 mg 09/25/20 22:18 09/25/20 23:32 Desyrel 150 Mg PO 10/25/20 22:17 150 mg HS RENE Administration Intake & Output (Last 24 hours) 09/24/20 09/25/20 09/26/20 09/27/20 11:59 11:59 11:59 11:59 Intake Total 940 360 Output Total 400 Balance 540 360 Weight 76.2 kg Laboratory Results (Last 24 hours) 09/26/20 11:31 POC Glucometer 121 H Orders (Last 24 hours) Category Date Time Status POCT GLUCOSE Stat Lab 09/26/20 07:32 Completed POCT GLUCOSE Stat Lab 09/26/20 11:31 Completed Amlodipine Besylate 5 mg [Norvasc 5 mg] Med 09/26/20 10:30 Discontinued 5 mg PO ONCE ONE Aspirin EC 81 mg [Ecotrin 81 mg] Med 09/26/20 10:00 Discontinued 81 mg PO DAILY Clonidine HCl 0.1 mg [Catapres 0.1 MG] Med 09/26/20 10:25 Discontinued 0.1 mg PO Q6H PRN PRN Clonidine HCl 0.1 mg [Catapres 0.1 MG] Med 09/26/20 12:00 Discontinued 0.1 mg PO Q6HT Enalaprilat 2.5 mg Inj [Vasotec I.v. 2.5 mg] Med 09/26/20 10:00 Discontinued 1.25 mg IV Q6H Levothyroxine Sodium 125 Mcg [Synthroid 125 Mcg] Med 09/26/20 10:00 Discontinued 125 mcg PO DAILY Metformin HCl Xr 500 mg [Glucophage XR 500 MG] Med 09/26/20 08:00 Discontinued 1,000 mg PO BIDWM PANTOPRAZOLE 40 mg Tablet [Protonix 40MG Tablet] Med 09/26/20 10:00 Discontinued 40 mg PO DAILY Quinapril HCl 10 mg [Accupril 10MG Tablet] Med 09/26/20 10:00 Discontinued 40 mg PO DAILY Pulse Oximetry .overnight RT 09/26/20 16:00 Active Patient Care Notes (Last 24 hours) 09/26/20 17:10 Nursing Note by Janie Warner Discharge instructions, summary of care, new prescriptions, home meds reviewed with pt; verbalized understanding/teach back done. Pt. sent home with pulse ox to to overnight pulse ox. Pt escorted to car and left in care of daughter. Initialized on 09/26/20 17:10 - END OF NOTE 09/26/20 15:45 (created 09/26/20 16:18) Nursing Note by Janie Warner BP 133/59, HR 70, and SaO2 94% on RA. Dr. Modi updated on pt's status. Disch arge orders received. Initialized on 09/26/20 16:18 - END OF NOTE 09/26/20 14:43 Nursing Note by Janie Warner Pt has walked in hallway twice this shift, 50 ft each time. SaO2 95% on room air while walking in ni. Pt sitting up in chair watching TV. No c/o pain or distress noted at this time. Initialized on 09/26/20 14:43 - END OF NOTE 09/26/20 13:00 (created 09/26/20 16:15) Nursing Note by Janie Warner BP 184/77, HR 66, SaO2 90% on RA at 1200; pt reported feeling anxious. Clonodine 0.1mg po and Ativan 1mg IV at that time. BP 142/66, HR 72, and SaO2 93% on RA at this time. Initialized on 09/26/20 16:15 - END OF NOTE 09/26/20 11:26 Case Management Note by Rica Mcelroy NOTES PATIENT WAS PLACED ON OXYGEN LAST PM D/T LOW SAT- TO ORDER OXYGEN JUST AT NIGHT-PATIENT WILL NEED AN OVERNIGHT PULSE OX STUDY BEFORE OXYGEN CAN BE SET UP. THIS CAN BE DONE IN HOUSE OR RT ALSO OFFERS AN "AT HOME OVERNIGHT PULSE OX STUDY ". PRIMARY RN NOTIFIED Initialized on 09/26/20 11:26 - END OF NOTE 09/26/20 11:00 (created 09/26/20 12:41) Nursing Note by Janie Warner Pt. put on RA at 1030. SaO2 91% on RA at rest. Pt awake and resting in bed. Patient is discharged home with amlodipine 10 mg at HS and clonidine 0.1 mg po bid strongly advised to call Dr Holli ortiz and make an appt. Code(s): I16.0 - HYPERTENSIVE URGENCY Hospital Summary - Hospital Course Hospital Course: Last Vital Signs Temp 98.9 F 09/26/20 13:50 Pulse 72 09/26/20 16:58 Resp 14 09/26/20 16:58 BP 142/66 09/26/20 16:58 Pulse Ox 93 L 09/26/20 16:58 Allergies meperidine HCl [From Demerol] Adverse Reaction (Mild, Verified 09/25/20 14:13) Vomiting Intake & Output 09/26/20 09/27/20 11:59 11:59 Intake Total 940 360 Output Total 400 Balance 540 360 Weight 76.2 kg Orders 09/26/20 16:00 Pulse Oximetry .overnight Lab Tests 09/26/20 11:31 POC Glucometer 121 H Medication Report Discontinued Medications Hydrocodone Bitart/Acetaminophen (Hydrocodone-Acetamin 10-325 Mg) 1 tablet PO Q6H PRN PRN PRN Reason: PAIN Stop: 09/30/20 22:14 Last Admin: 09/26/20 09:39 Dose: 1 tablet Documented by: LISA MAR PAIN Document 09/26/20 09:39 VISH (Rec: 09/26/20 09:40 VISH [id number]) Reassesment Pain Site Lower Location Back Pain Scale Used 0-10 Pain Scale Pain Intensity (0-10) 3 Re-Assess: Pain Reassessment Document 09/26/20 10:09 VISH (Rec: 09/26/20 12:08 [id number]) Pain Description Pain Scale Used 0-10 Pain Scale Pain Intensity (0-10) 1 Amlodipine Besylate (Norvasc 5 Mg) 5 mg PO ONCE ONE Stop: 09/26/20 10:31 Last Admin: 09/26/20 10:33 Dose: 5 mg Documented by: LISA Aspirin (Ecotrin 81 Mg) 81 mg PO DAILY [facility] Stop: 10/26/20 09:59 Last Admin: 09/26/20 09:40 Dose: 81 mg Documented by: LISA Clonidine (Catapres 0.1 Mg) 0.1 mg PO STAT ONE Stop: 09/25/20 17:46 Last Admin: 09/25/20 17:51 Dose: 0.1 mg Documented by: ANAND Medication Administration (PO Document 09/25/20 17:51 MB (Rec: 09/25/20 17:51 MB [id number]) Medication Administration PO Med Administration Yes Clonidine (Catapres 0.1 Mg) 0.1 mg PO Q6H [facility] Stop: 10/25/20 23:44 Last Admin: 09/26/20 06:10 Dose: 0.1 mg Documented by: MANUEL Comments: BP 168/78 HR 66 Clonidine (Catapres 0.1 Mg) 0.1 mg PO Q6H PRN PRN PRN Reason: HYPERTENSION Stop: 10/26/20 10:24 Last Admin: 09/26/20 11:57 Dose: 0.1 mg Documented by: LISA Enalaprilat (Vasotec I.V. 2.5 Mg) 1.25 mg IV STAT ONE Stop: 09/25/20 14:48 Last Admin: 09/25/20 15:40 Dose: 1.25 mg Documented by: [facility] (IV,IVP) Document 09/25/20 15:40 KM (Rec: 09/25/20 15:40 KM [id number]) Type of Administration Initial IV Push No IV Push-Addtl Different Drug Yes Enalaprilat (Vasotec I.V. 2.5 Mg) 1.25 mg IV STAT ONE Stop: 09/25/20 16:53 Last Admin: 09/25/20 16:56 Dose: 1.25 mg Documented by: [facility] (IV,IVP) Document 09/25/20 16:56 KM (Rec: 09/25/20 16:56 KM [id number]) Type of Administration Initial IV Push No IV Push-Addtl Same Drug >30min Yes Enalaprilat (Vasotec I.V. 2.5 Mg) 1.25 mg IV Q6H [facility] Stop: 10/25/20 21:05 Last Admin: 09/26/20 04:01 Dose: 1.25 mg Documented by: MANUEL Comments: B/P 177/78 HR-61 Enalaprilat (Vasotec I.V. 2.5 Mg) 1.25 mg IV Q6H [facility] Stop: 10/26/20 09:59 Last Admin: 09/26/20 09:42 Dose: Not Given Documented by: LISA Non-Admin Reason: BP 162/74 Gabapentin (Neurontin 400 Mg) 800 mg PO TID [facility] Stop: 10/25/20 22:14 Last Admin: 09/26/20 14:58 Dose: 800 mg Documented by: LISA Sodium Chloride (Sodium Chloride 0.9% 1000 Ml) 1,000 mls @ 999 mls/hr IV .Q1H1M STA Stop: 09/25/20 15:48 Last Infusion: 09/25/20 16:55 Dose: 0 mls/hr Documented by: MITCH Infusion/Titration Document 09/25/20 16:55 KM (Rec: 09/25/20 16:55 KM [id number]) Dosing & Rate IV Rate 0 Increase/Decrease Infused Cumulative Dose Not Applicable IV Intake Infusion Intake 1,000 Cumulative Intake (Bag) 1,000 Cumulative Intake (Rx) 1,000 Container Volume 0 Volume Adjustment/Waste 0 Levothyroxine Sodium (Synthroid 125 Mcg) 125 mcg PO DAILY RENE Stop: 10/26/20 09:59 Last Admin: 09/26/20 09:39 Dose: 125 mcg Documented by: LISA Lorazepam (Ativan 2 Mg/1 Ml Vial) 1 mg IV STAT ONE Stop: 09/25/20 14:46 Last Admin: 09/25/20 15:40 Dose: 1 mg Documented by: MITCH Med Admininistration (IV,IVP) Document 09/25/20 15:40 KM (Rec: 09/25/20 15:40 KM [id number]) Type of Administration Initial IV Push Yes Lorazepam (Ativan 2 Mg/1 Ml Vial) 1 mg IV STAT ONE Stop: 09/25/20 18:44 Last Admin: 09/25/20 18:47 Dose: 1 mg Documented by: ANAND Med Admininistration (IV,IVP) Document 09/25/20 18:47 MB (Rec: 09/25/20 18:47 MB [id number]) Type of Administration Initial IV Push No IV Push-Addtl Same Drug >30min Yes Patient Med Reassessment Document 09/25/20 18:47 MB (Rec: 09/25/20 18:47 MB [id number]) Patient Assessment Sedation Scale Wide Awake Lorazepam (Ativan 2 Mg/1 Ml Vial) 1 mg IV Q4H PRN PRN PRN Reason: ANXIETY Stop: 10/25/20 21:05 Last Admin: 09/26/20 11:57 Dose: 1 mg Documented by: LISA Metformin HCl (Glucophage Xr 500 Mg) 1,000 mg PO BIDWM [facility] Stop: 10/26/20 07:59 Last Admin: 09/26/20 07:51 Dose: 1,000 mg Documented by: LISA Pantoprazole Sodium (Protonix 40mg Tablet) 40 mg PO DAILY [facility] Stop: 10/26/20 09:59 Last Admin: 09/26/20 09:40 Dose: 40 mg Documented by: LISA Quinapril HCl (Accupril 10mg Tablet) 40 mg PO DAILY [facility] Stop: 10/26/20 09:59 Last Admin: 09/26/20 09:40 Dose: 40 mg Documented by: LISA Trazodone HCl (Desyrel 150 Mg) 150 mg PO HS [facility] Stop: 10/25/20 22:17 Last Admin: 09/25/20 23:32 Dose: 150 mg Documented by: MANUEL - Vitals & Intake/Output Vital Signs: Vital Signs Temperature 98.9 F 09/26/20 13:50 Pulse Rate 72 09/26/20 16:58 Respiratory Rate 14 09/26/20 16:58 Blood Pressure 142/66 09/26/20 16:58 O2 Sat by Pulse Oximetry 93 L 09/26/20 16:58 Intake & Output: Intake & Output 09/24/20 09/25/20 09/26/20 09/27/20 11:59 11:59 11:59 11:59 Intake Total 940 360 Output Total 400 Balance 540 360 Weight 76.2 kg - Lab Result Diagrams: 09/26/20 02:50 09/26/20 02:50 Lab Results-Last 24 Hrs: Lab Results-Last 24 Hours 09/26/20 Range/Units 11:31 POC Glucometer 121 H (74 to 106) mg/dL Micro Results-Entire Visit: Accuchecks Date 09/26/20 Time 11:30 - Radiology Exams Ordered Rad Exams-Entire Visit: Radiology Procedures Category Date Time Status HEAD WITHOUT CONTRAST [CT] Stat Exams 09/25/20 15:53 Completed - Procedures and Test Procedures and Tests throughout Hospitalization: Therapy Orders & Screens 09/25/20 21:35 Smoking Cessation Education ONCE Comment: Diagnosis: hypertensive urgency Smoking Status: Current every day smoker How long have you smoked: 20 years Have you smoked in the past 12 months: Yes Approximately how many cigarettes per day: 1 pack Do you dip or chew tobacco: No 09/26/20 00:22 Oxygen Nasal Cannula 3 lpm Comment: Diagnosis: hypertensive urgency - Discharge Discharge Date: 09/26/20 Disposition: Home, Self-Care Condition: Stable Prescriptions: New Clonidine HCl 0.1 mg [Catapres 0.1 MG] 0.1 mg PO BID 30 Days #60 tablet Amlodipine Besylate 5 mg [Norvasc 5 mg] 10 mg PO HS 30 Days #30 tablet Continue Gabapentin 400 mg [Neurontin 400 MG] 800 mg PO TID Hydrocodone/APAP 10/325 mg [[place] 10/325 MG TableT] 1 tab PO Q6H PRN PRN PRN Reason: Pain Levothyroxine Sodium 125 mcg PO DAILY Trazodone HCl 150 mg PO HS Quinapril HCl 40 mg PO DAILY Metformin HCl Xr 500 mg [Glucophage XR 500 MG] 1,000 mg PO BID PANTOPRAZOLE 40 mg Tablet [Protonix 40MG Tablet] 40 mg PO DAILY Aspirin EC 81 mg [Ecotrin 81 mg] 81 mg PO DAILY Instructions: High Blood Pressure (DC) Additional Instructions: FOLLOW UP WITH DR. RIVERA TOMORROW FOLLOW UP WITH GUIDE EXCURSION SOON POSSIBLE DO OVERNIGHT PULSE OX TONIGHT PURCHASE AUTOMATIC BP CUFF AND CHECK BP DAILY PRIOR TO TAKING MEDS
== END 2020-09-26 17:03 | disposition home or self-care (01) ==
LOC: ED 13:59 → MED SURG 21:04
PROVIDERS: ADMIT General Practice; ATTEND General Practice
DX: I16.0 Hypertensive urgency (principal); R53.1 Weakness; F41.9 Anxiety disorder, unspecified; Z79.899 Other long term (current) drug therapy; E11.9 Type 2 diabetes mellitus without complications; E03.9 Hypothyroidism, unspecified; Z20.828 Contact with and (suspected) exposure to other viral communicable diseases; E78.00 Pure hypercholesterolemia, unspecified; I10 Essential (primary) hypertension
CPT/HCPCS: 36000; 36415; 70450; 80053; 81001; 82947; 83605; 83735; 83880; 84436; 84443; 84484; 85025; 93005; 93041; 93268; 94760; 94762; 96360; 96374; 96375; 96376; 99285; 99291; G0378; U0003; J2060; A9270-GY

== ENCOUNTER 2020-10-13 12:16 | Emergency (ER) | payer MEDICARE ==
[2020-10-13 13:20] VITALS: O2SAT 98
[2020-10-13] MEDS ORDERED: Sodium Chloride 0.9% 1000 ML 1,000 ML IV STA (13:21)
[2020-10-13] MEDS ORDERED: Ativan 2 MG/1 ML VIAL IV STA (13:21)
--- NOTE | 2020-10-13 13:28 | ERPHSYRPT ---
- History of Present Illness Time Seen by Provider: 10/13/20 12:50 Source: patient Exam Limitations: no limitations Patient Subjective Stated Complaint: Pt states "I have anxiety and I just feel horrible. I had my bowels explode on me yesterday and today I am worked up." Triage Nursing Assessment: Pt presented alert and oriented X 3, skin pwd. pt ambulates with an upright steady gait, able to speak in clear full sentences pt moaning and grunting, unable to sit still. Pt in no apparent respiratory distress. Physician History: Patient is a 70-year-old female presents to our ED with complaints of diarrhea and generalized weakness. Patient had her first bout of diarrhea yesterday. Since then she has been feeling weak. Patient has a history of anxiety and states that her symptoms are triggering her anxiety. No associated chest pain or shortness of breath. Patient states she is a chronic lower extremity pain from peripheral neuropathy. Patient admits to being a diabetic. Otherwise no abdominal pain. No trauma. No fever. No headache. No focal or lateralizing symptoms. No numbness or tingling. Symptoms are mild to moderate in intensity. No specific worsening improving factors. Patient otherwise voices no other complaints or concerns at this time. Allergies/Adverse Reactions: meperidine HCl [From Demerol] Adverse Reaction (Mild, Verified 09/25/20 14:13) Vomiting Home Medications: Gabapentin 400 mg [Neurontin 400 MG] 800 mg PO TID 05/12/15 [History] Hydrocodone/APAP 10/325 mg [[place] 10/325 MG TableT] 1 tab PO Q6H PRN PRN 1 [History] Levothyroxine Sodium 137 mcg PO DAILY 12/04/16 [History] Quinapril HCl 40 mg PO DAILY 12/04/16 [History] Trazodone HCl 150 mg PO HS 12/04/16 [History] Aspirin EC 81 mg [Ecotrin 81 mg] 81 mg PO DAILY 09/25/20 [History] Metformin HCl Xr 500 mg [Glucophage XR 500 MG] 1,000 mg PO BID 09/25/20 [History] PANTOPRAZOLE 40 mg Tablet [Protonix 40MG Tablet] 40 mg PO DAILY 09/25/20 [History] Atorvastatin Calcium [Lipitor 40Mg] 40 mg PO DAILY 10/13/20 [History] Temazepam [Restoril] 30 mg PO HS 10/13/20 [History] Hx Tetanus, Diphtheria Vaccination/Date Given: Yes Hx Influenza Vaccination/Date Given: Yes Hx Pneumococcal Vaccination/Date Given: Yes Immunizations Up to Date: Yes Travel Risk - International Travel Have you traveled outside of the country in past 3 weeks: No - Coronavirus Screening Are you exhibiting any of the following symptoms?: No Close contact with a COVID-19 positive Pt in past 14-21 Days: No - Vaccine Status Have you recieved a Covid-19 vaccination: Yes 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 - Vaccination Dates Dates if Unknown: 04/2020 - Review of Systems Constitutional: No Symptoms, No Fever, No Chills Eyes: No Symptoms Ears, Nose, & Throat: No Symptoms Respiratory: No Symptoms, No Cough, No Dyspnea Cardiac: No Symptoms, No Chest Pain, No Edema, No Syncope Abdominal/Gastrointestinal: No Symptoms, No Abdominal Pain, No Nausea, No Vomiting, No Diarrhea Genitourinary Symptoms: No Symptoms, No Dysuria Musculoskeletal: No Symptoms, No Back Pain, No Neck Pain Skin: No Symptoms, No Rash Neurological: No Symptoms, No Dizziness, No Focal Weakness, No Sensory Changes Psychological: No Symptoms Endocrine: No Symptoms Hematologic/Lymphatic: No Symptoms Immunological/Allergic: No Symptoms All Other Systems: Reviewed and Negative - Past Medical History Pertinent Past Medical History: Yes Neurological History: No Pertinent History ENT History: No Pertinent History Cardiac History: High Cholesterol, Hypertension Respiratory History: No Pertinent History Endocrine Medical History: Diabetes Type II, Hypothyroidism Musculoskeletal History: No Pertinent History GI Medical History: Colitis, Diverticulitis, Diverticulosis, GERD, Other History: No Pertinent History Psycho-Social History: Anxiety, Depression Female Reproductive Disorders: No Pertinent History - Past Surgical History Past Surgical History: Yes Neuro Surgical History: No Pertinent History Cardiac: No Pertinent History Respiratory: No Pertinent History Gastrointestinal: Cholecystectomy Genitourinary: No Pertinent History Musculoskeletal: No Pertinent History Female Surgical History: Hysterectomy Other Surgical History: thryoid - Social History Smoking Status: Current every day smoker How long have you smoked: 20 years Exposure to second hand smoke: Yes Drug Use: none Patient Lives Alone: Yes - Nursing Vital Signs Nursing Vital Signs: Initial Vital Signs Temperature 98.4 F 10/13/20 12:28 Pulse Rate 93 H 10/13/20 12:28 Respiratory Rate 22 10/13/20 12:28 Blood Pressure 185/108 10/13/20 12:28 O2 Sat by Pulse Oximetry 97 10/13/20 12:28 Pain Scale Pain Intensity 0 - Physical Exam General Appearance: no apparent distress, alert, anxiety, other (Patient appears anxious. She states she feels anxious.) Eye Exam: PERRL/EOMI, eyes nml inspection Ears, Nose, Throat Exam: normal ENT inspection, TMs normal, pharynx normal, moist mucous membranes Neck Exam: normal inspection, non-tender, supple, full range of motion Respiratory Exam: normal breath sounds, lungs clear, No respiratory distress Cardiovascular Exam: regular rate/rhythm, normal heart sounds, normal peripheral pulses Gastrointestinal/Abdomen Exam: soft, normal bowel sounds, No tenderness, No mass Back Exam: normal inspection, normal range of motion, No CVA tenderness, No vertebral tenderness Extremity Exam: normal inspection, normal range of motion, pelvis stable Neurologic Exam: alert, oriented x 3, cooperative, normal mood/affect, nml cerebellar function, nml station & gait, sensation nml, No motor deficits Skin Exam: normal color, warm, dry, No rash Lymphatic Exam: No adenopathy SpO2 Interpretation: normal SpO2: 98 O2 Delivery: Room Air - Course Nursing assessment & vital signs reviewed: Yes Ordered Tests: Active Orders 24 hr Category Date Time Status IV Insertion STAT Care 10/13/20 13:21 Active CBC W DIFF Stat Lab 10/13/20 13:30 Completed CMP Stat Lab 10/13/20 13:30 Completed TROPONIN Q3H Lab 10/13/20 13:30 Completed TROPONIN Q3H Lab 10/13/20 16:30 Ordered TROPONIN Q3H Lab 10/13/20 19:30 Ordered TROPONIN Q3H Lab 10/13/20 22:30 Ordered TROPONIN Q3H Lab 10/14/20 01:30 Ordered UA W/RFX UR CULTURE Stat Lab 10/13/20 15:07 Completed Medication Summary Discontinued Medications Generic Name Dose Route Start Last Admin Trade Name Freq PRN Reason Stop Dose Admin Sodium Chloride 1,000 mls @ 999 mls/hr 10/13/20 13:21 10/13/20 15:00 Sodium Chloride 0.9% 1000 Ml IV 10/13/20 14:21 Infused .Q1H1M STA Infusion Sodium Chloride Confirm 10/13/20 13:33 Sodium Chloride 0.9% 1000 Ml Administered 10/13/20 13:34 Dose 1,000 mls @ ud .ROUTE .STK-MED ONE Lorazepam 0.5 mg 10/13/20 13:21 10/13/20 13:36 Ativan 2 Mg/1 Ml Vial IV 10/13/20 13:22 0.5 mg ONCE STA Administration Lorazepam Confirm 10/13/20 13:33 Ativan 2 Mg/1 Ml Vial Administered 10/13/20 13:34 Dose 2 mg .ROUTE .STK-MED ONE Lab/Rad Data: Laboratory Result Diagrams 10/13/20 13:30 10/13/20 13:30 Laboratory Results 10/13/20 10/13/20 10/13/20 Range/Units 15:07 13:30 13:30 WBC (4.0-10.5) K/mm3 RBC (4.1-5.4) M/mm3 Hgb (12.0-16.0) gm/dl Hct (35-47) % MCV (78-100) fl MCH (26-32) pg MCHC (32-36) g/dl RDW (11.5-14.0) % Plt Count (150-450) K/mm3 MPV (7.5-11.0) fl Gran % (36.0-66.0) % Eos # (Auto) (0-0.5) Absolute Lymphs (auto) (1.0-4.6) Absolute Monos (auto) (0.0-1.3) Lymphocytes % (24.0-44.0) % Monocytes % (0.0-12.0) % Eosinophils % (0.00-5.0) % Basophils % (0.0-0.4) % Absolute Granulocytes (1.4-6.9) Basophils # (0-0.4) Sodium 126 L (137-145) mmol/L Potassium 4.6 (3.5-5.1) mmol/L Chloride 95 L (98-107) mmol/L Carbon Dioxide 22 (22-30) mmol/L Anion Gap 14.0 (5-15) MEQ/L BUN 12 (7-17) mg/dL Creatinine 0.56 (0.52-1.04) mg/dL Estimated GFR > 60.0 ML/MIN Glucose 153 H (74-106) mg/dL Calcium 9.4 (8.4-10.2) mg/dL Total Bilirubin 0.20 (0.2-1.3) mg/dL AST 30 (14-36) U/L ALT 15 (0-35) U/L Alkaline Phosphatase 56 (38-126) U/L Troponin I < 0.012 (0.000-0.034) ng/mL Serum Total Protein 6.6 (6.3-8.2) g/dL Albumin 4.0 (3.5-5.0) g/dL Urine Color STRAW (YELLOW) Urine Appearance CLEAR (CLEAR) Urine pH 7.0 (5-6) Ur Specific [place] 1.003 (1.005-1.025) Urine Protein NEGATIVE (Negative) Urine Ketones NEGATIVE (NEGATIVE) Urine Blood NEGATIVE (0-5) [place]/ul Urine Nitrite NEGATIVE (NEGATIVE) Urine Bilirubin NEGATIVE (NEGATIVE) Urine Urobilinogen NEGATIVE (0-1) mg/dL Ur Leukocyte Esterase NEGATIVE (NEGATIVE) Urine WBC (Auto) 0-2 (0-5) /HPF Urine RBC (Auto) 0-2 (0-2) /HPF U Epithel Cells (Auto) RARE (FEW) /HPF Urine Mucus (Auto) SLIGHT (NEGATIVE) /HPF Urine Culture Reflexed NO (NO) Urine Glucose NEGATIVE (NEGATIVE) mg/dL 10/13/20 Range/Units 13:30 WBC 7.9 (4.0-10.5) K/mm3 RBC 3.68 L (4.1-5.4) M/mm3 Hgb 11.5 L (12.0-16.0) gm/dl Hct 35.8 (35-47) % MCV 97.3 (78-100) fl MCH 31.3 (26-32) pg MCHC 32.1 (32-36) g/dl RDW 13.9 (11.5-14.0) % Plt Count 231 (150-450) K/mm3 MPV 9.5 (7.5-11.0) fl Gran % 81.5 H (36.0-66.0) % Eos # (Auto) 0.01 (0-0.5) Absolute Lymphs (auto) 1.03 (1.0-4.6) Absolute Monos (auto) 0.40 (0.0-1.3) Lymphocytes % 13.0 L (24.0-44.0) % Monocytes % 5.0 (0.0-12.0) % Eosinophils % 0.1 (0.00-5.0) % Basophils % 0.4 (0.0-0.4) % Absolute Granulocytes 6.46 (1.4-6.9) Basophils # 0.03 (0-0.4) Sodium (137-145) mmol/L Potassium (3.5-5.1) mmol/L Chloride (98-107) mmol/L Carbon Dioxide (22-30) mmol/L Anion Gap (5-15) MEQ/L BUN (7-17) mg/dL Creatinine (0.52-1.04) mg/dL Estimated GFR ML/MIN Glucose (74-106) mg/dL Calcium (8.4-10.2) mg/dL Total Bilirubin (0.2-1.3) mg/dL AST (14-36) U/L ALT (0-35) U/L Alkaline Phosphatase (38-126) U/L Troponin I (0.000-0.034) ng/mL Serum Total Protein (6.3-8.2) g/dL Albumin (3.5-5.0) g/dL Urine Color (YELLOW) Urine Appearance (CLEAR) Urine pH (5-6) Ur Specific [place] (1.005-1.025) Urine Protein (Negative) Urine Ketones (NEGATIVE) Urine Blood (0-5) [place]/ul Urine Nitrite (NEGATIVE) Urine Bilirubin (NEGATIVE) Urine Urobilinogen (0-1) mg/dL Ur Leukocyte Esterase (NEGATIVE) Urine WBC (Auto) (0-5) /HPF Urine RBC (Auto) (0-2) /HPF U Epithel Cells (Auto) (FEW) /HPF Urine Mucus (Auto) (NEGATIVE) /HPF Urine Culture Reflexed (NO) Urine Glucose (NEGATIVE) mg/dL - Progress Progress: improved Progress Note: Patient reassessed. She feels much better. She no longer feels weak. Patient ambulated throughout our ED with a normal gait. No obvious weakness or gait disturbances observed. Patient received IV fluids. Work-up revealed hyponatremia. Patient received sodium chloride via her intravenous infusion. Anxiety resolved. Patient received half milligram of Ativan and feels much better. Patient voices no other complaints at this time. She denies pain. Patient understands the importance of hydration during times of diarrhea. She agrees to follow-up with her primary care doctor within 48 hours for reevaluation. 10/13/20 16:25 10/13/20 16:27 Counseled pt/family regarding: lab results, diagnosis, need for follow-up, rad results - Departure Departure Disposition: Home Clinical Impression: Generalized weakness, Diarrhea, Hyponatremia Condition: Stable Critical Care Time: No Referrals: AURORA MARI MD [Primary Care Provider] - Additional Instructions: Discharge/Care Plan LUCY SHARPE was seen on 10/13/20 in the Emergency Room. The patient was co unseled regarding Diagnosis,Lab results, Imaging studies, need for follow up and when to return to the Emergency Room. Prescriptions given: Discharge Note I have spoken with the patient and/or caregivers. I have explained the patient's condition, diagnosis and treatment plan based on the information available to me at this time. I have answered the patient's and/or caregiver's questions and addressed any concerns. The patient and/or caregivers have as good understanding of the patient's diagnosis, condition and treatment plan as can be expected at this point. The vital signs have been stable. The patient's condition is stable and appropriate for discharge from the emergency department. The patient will pursue further outpatient evaluation with the primary care physician or other designated or consulting physician as outlined in the discharge instructions. The patient and/or caregivers are agreeable to this plan of care and follow-up instructions have been explained in detail. The patient and/or caregivers have received these instruction. The patient/and or caregivers are aware that any significant change in condition or worsening of symptoms should prompt an immediate return to this or the closest emergency department or call 911.
[2020-10-13] MEDS ORDERED: Ativan 2 MG/1 ML VIAL ONE (13:33)
[2020-10-13] MEDS ORDERED: Sodium Chloride 0.9% 1000 ML 1,000 ML ONE (13:33)
[2020-10-13 13:44] LABS: Absolute Neutrophil Ct (ANC) 6.46 (1.4-6.9); BASOPHIL % 0.4 % (0.0-0.4); Basophil (Absolute #) 0.03 (0-0.4); Eosinophil % 0.1 % (0.00-5.0); Eosinophil (Absolute #) 0.01 (0-0.5); Hematocrit 35.8 % (35-47); Hemoglobin 11.5 gm/dl (12.0-16.0); Lymphocyte (Absolute #) 1.03 (1.0-4.6); Mean Cell Volume 97.3 fl (78-100); Mean Corpuscular Hemoglobin 31.3 pg (26-32); Mean Corpuscular Hgb Concent. 32.1 g/dl (32-36); Mean Platelet Volume 9.5 fl (7.5-11.0); Neutrophil % 81.5 % (36.0-66.0); Platelet Count 231 K/mm3 (150-450); Red Blood Count 3.68 M/mm3 (4.1-5.4); Red Cell Distribution Width 13.9 % (11.5-14.0); White Blood Count 7.9 K/mm3 (4.0-10.5)
[2020-10-13 13:48] LABS: ALKALINE PHOSPHATASE 56 U/L (38-126); BLOOD UREA NITROGEN 12 mg/dL (7-17); CHLORIDE 95 mmol/L (98-107); Calcium 9.4 mg/dL (8.4-10.2); Carbon Dioxide 22 mmol/L (22-30); Creatinine 1 0.56 mg/dL (0.52-1.04); EST GLOMERULAR FILTRATION RATE > 60.0 ML/MIN; Glucose 153 mg/dL (74-106); Potassium 4.6 mmol/L (3.5-5.1); SGOT/AST 30 U/L (14-36); SGPT/ALT 15 U/L (0-35); SODIUM 126 mmol/L (137-145); Total Protein 6.6 g/dL (6.3-8.2)
[2020-10-13 15:09] LABS: Appearance CLEAR (CLEAR); Bilirubin NEGATIVE (NEGATIVE); Blood NEGATIVE Ery/ul (0-5); Epithelial Cells RARE /HPF (FEW); Glucose NEGATIVE (NEGATIVE); Ketones NEGATIVE (NEGATIVE); Leukocyte Esterase NEGATIVE (NEGATIVE); Mucus SLIGHT /HPF (NEGATIVE); Nitrite NEGATIVE (NEGATIVE); Protein,Urine Dip NEGATIVE (Negative); RBC 0-2 /HPF (0-2); Specific Gravity 1.003 (1.005-1.025); Urobilinogen NEGATIVE mg/dL (0-1); WBC 0-2 /HPF (0-5)
[2020-10-13 16:25] VITALS: BP 155/80; PULSE 68
== END 2020-10-13 17:38 | disposition home or self-care (01) ==
LOC: ED 12:16
DX: R53.1 Weakness (principal); R19.7 Diarrhea, unspecified; E87.1 Hypo-osmolality and hyponatremia; E11.9 Type 2 diabetes mellitus without complications; G62.9 Polyneuropathy, unspecified; I10 Essential (primary) hypertension; E03.9 Hypothyroidism, unspecified; E78.00 Pure hypercholesterolemia, unspecified; F41.9 Anxiety disorder, unspecified; Z79.899 Other long term (current) drug therapy
CPT/HCPCS: 36000; 36415; 80053; 81001; 84484; 85025; 96374; 99284; J2060

== ENCOUNTER 2020-12-13 22:46 | Emergency (ER) | payer MEDICARE ==
[2020-12-13 23:21] LABS: Absolute Neutrophil Ct (ANC) 6.83 (1.4-6.9); BASOPHIL % 0.5 % (0.0-0.4); Basophil (Absolute #) 0.05 (0-0.4); Eosinophil % 1.7 % (0.00-5.0); Eosinophil (Absolute #) 0.18 (0-0.5); Hematocrit 36.1 % (35-47); Hemoglobin 11.5 gm/dl (12.0-16.0); Lymphocyte (Absolute #) 2.28 (1.0-4.6); Mean Cell Volume 100.3 fl (78-100); Mean Corpuscular Hemoglobin 31.9 pg (26-32); Mean Corpuscular Hgb Concent. 31.9 g/dl (32-36); Mean Platelet Volume 9.2 fl (7.5-11.0); Monocyte (Absolute #) 1.02 (0.0-1.3); Monocytes % 9.8 % (0.0-12.0); Platelet Count 222 K/mm3 (150-450); Red Cell Distribution Width 14.5 % (11.5-14.0); White Blood Count 10.4 K/mm3 (4.0-10.5)
[2020-12-13 23:31] LABS: ALKALINE PHOSPHATASE 49 U/L (38-126); ANION GAP 11.8 MEQ/L (5-15); BLOOD UREA NITROGEN 8 mg/dL (7-17); CHLORIDE 102 mmol/L (98-107); Calcium 9.3 mg/dL (8.4-10.2); Carbon Dioxide 25 mmol/L (22-30); Creatinine 1 0.56 mg/dL (0.52-1.04); EST GLOMERULAR FILTRATION RATE > 60.0 ML/MIN; Glucose 107 mg/dL (74-106); Potassium 4.5 mmol/L (3.5-5.1); SGOT/AST 18 U/L (14-36); SGPT/ALT 12 U/L (0-35); SODIUM 134 mmol/L (137-145); Total Protein 6.7 g/dL (6.3-8.2)
--- NOTE | 2020-12-14 00:02 | ERPHSYRPT ---
- History of Present Illness Time Seen by Provider: 12/13/20 22:55 Source: patient Exam Limitations: no limitations Patient Subjective Stated Complaint: I felt a little funny so I took my night meds, then I got up and felt warm inside so I called the ambulance Triage Nursing Assessment: pt c/o "feeling warm" inside, a cough and vomiting some mucous occasionally. No cough noted here. Lungs clear, heart tones reg, abd soft with active bs x4 quad, nontender. Pt called EMS cause she didn't feel right and was brought in. Pt in alert and oriented x4, cooperative. Physician History: Patient is a 70-year-old female presents to our ED via EMS for evaluation due to "not feeling right. Patient states that she began to feel "funny". Patient took her nighttime meds and began to feel warm inside. Patient observed that this was abnormal and called EMS. No pain. No nausea or vomiting. No fever. No trauma. No rash. No shortness of breath. Symptoms are mild in intensity. No specific worsening improving factors. Patient admits to an occasional cough. Patient vomited once. No vomiting at this time. Patient has been tolerating p.o. No diarrhea. Patient appears somewhat anxious. She voices no other comp laints at this time. Timing/Duration: today Severity: mild Modifying Factors: Improves With: nothing Associated Symptoms: cough, No nausea, No vomiting, No abdominal pain, No shortness of breath, No diaphoresis, No chest pain, No fever, No weakness Allergies/Adverse Reactions: meperidine HCl [From Demerol] Adverse Reaction (Mild, Verified 12/13/20 23:01) Vomiting Home Medications: Gabapentin 400 mg [Neurontin 400 MG] 800 mg PO TID 05/12/15 [History] Hydrocodone/APAP 10/325 mg [[place] 10/325 MG TableT] 1 tab PO Q6H PRN PRN 12/04/16 [History] Levothyroxine Sodium 137 mcg PO DAILY 12/04/16 [History] Quinapril HCl 40 mg PO DAILY 12/04/16 [History] Trazodone HCl 150 mg PO HS 12/04/16 [History] Aspirin EC 81 mg [Ecotrin 81 mg] 81 mg PO DAILY 09/25/20 [History] Metformin HCl Xr 500 mg [Glucophage XR 500 MG] 1,000 mg PO BID 09/25/20 [History] PANTOPRAZOLE 40 mg Tablet [Protonix 40MG Tablet] 40 mg PO DAILY 09/25/20 [History] Atorvastatin Calcium [Lipitor 40Mg] 40 mg PO DAILY 10/13/20 [History] Cyanocobalamin 1000 Mcg/ml [Cyanocobalamin B-12 1000 MCG/ML] 0.1 ml IM UD 12/13/20 [History] Naldemedine Tosylate [Symproic] 0.2 mg PO DAILY 12/13/20 [History] Sennosides [Senokot] 8.6 mg PO DAILY 12/13/20 [History] Hx Tetanus, Diphtheria Vaccination/Date Given: Yes Hx Influenza Vaccination/Date Given: No Hx Pneumococcal Vaccination/Date Given: Yes Immunizations Up to Date: Yes Travel Risk - International Travel Have you traveled outside of the country in past 3 weeks: No - Coronavirus Screening Close contact with a COVID-19 positive Pt in past 14-21 Days: No - Vaccine Status Have you recieved a Covid-19 vaccination: Yes Disability Benefits Specialist: Unknown - Vaccination Dates Date of 2cond Vaccination (if applicable): . Dates if Unknown: . - Review of Systems Constitutional: No Symptoms, No Fever, No Chills Eyes: No Symptoms Ears, Nose, & Throat: No Symptoms Respiratory: No Symptoms, No Cough, No Dyspnea Cardiac: No Symptoms, No Chest Pain, No Edema, No Syncope Abdominal/Gastrointestinal: No Symptoms, No Abdominal Pain, No Nausea, No Vomiting, No Diarrhea Genitourinary Symptoms: No Symptoms, No Dysuria Musculoskeletal: No Symptoms, No Back Pain, No Neck Pain Skin: No Symptoms, No Rash Neurological: No Symptoms, No Dizziness, No Focal Weakness, No Sensory Changes Psychological: No Symptoms Endocrine: No Symptoms Hematologic/Lymphatic: No Symptoms Immunological/Allergic: No Symptoms All Other Systems: Reviewed and Negative - Past Medical History Pertinent Past Medical History: Yes Neurological History: No Pertinent History ENT History: No Pertinent History Cardiac History: High Cholesterol, Hypertension Respiratory History: No Pertinent History Endocrine Medical History: Diabetes Type II, Hypothyroidism Musculoskeletal History: No Pertinent History GI Medical History: Colitis, Diverticulitis, Diverticulosis, GERD, Other History: No Pertinent History Psycho-Social History: Anxiety, Depression Female Reproductive Disorders: No Pertinent History Other Medical History: bleeding ulcer. skin cancer lt arm - Past Surgical History Past Surgical History: Yes Neuro Surgical History: No Pertinent History Cardiac: No Pertinent History Respiratory: No Pertinent History Gastrointestinal: Cholecystectomy Genitourinary: No Pertinent History Musculoskeletal: No Pertinent History Female Surgical History: Hysterectomy Other Surgical History: thryoid - Social History Smoking Status: Current every day smoker How long have you smoked: 35 yrs Exposure to second hand smoke: No Drug Use: none Patient Lives Alone: Yes - Nursing Vital Signs Nursing Vital Signs: Initial Vital Signs Temperature 98.9 F 12/13/20 22:49 Pulse Rate 88 12/13/20 22:49 Respiratory Rate 24 12/13/20 22:49 Blood Pressure 184/88 12/13/20 22:49 O2 Sat by Pulse Oximetry 98 12/13/20 22:49 Pain Scale Pain Intensity 0 - Physical Exam General Appearance: no apparent distress, alert Eye Exam: PERRL/EOMI, eyes nml inspection Ears, Nose, Throat Exam: normal ENT inspection, TMs normal, pharynx normal, moist mucous membranes Neck Exam: normal inspection, non-tender, supple, full range of motion Respiratory Exam: normal breath sounds, lungs clear, airway intact, No respiratory distress Cardiovascular Exam: regular rate/rhythm, normal heart sounds, normal peripheral pulses Gastrointestinal/Abdomen Exam: soft, normal bowel sounds, No tenderness, No mass Back Exam: normal inspection, normal range of motion, No CVA tenderness, No vertebral tenderness Extremity Exam: normal inspection, normal range of motion, pelvis stable Neurologic Exam: alert, oriented x 3, cooperative, normal mood/affect, sensation nml, No motor deficits Skin Exam: normal color, warm, dry, No rash Lymphatic Exam: No adenopathy SpO2 Interpretation: normal SpO2: 97 O2 Delivery: Room Air - Course Nursing assessment & vital signs reviewed: Yes EKG Interpreted by Me: RATE (79), Sinus Rhythm, NORMAL AXIS, NORMAL INTERVALS - Radiology Exams Chest X-ray Interpretation: Interpreted by me (No infiltrate or consolidation. Normal cardiac silhouette. Intact bony thorax. Osteopenia. Previous bilateral pneumonia observed on 04/25/2018 resolved.), Other (Bilateral shoulders appear to be somewhat subluxed inferiorly however clinically there is no subluxation observed) Ordered Tests: Active Orders 24 hr Category Date Time Status AMA [Release AMA] OM.NOW Care 12/14/20 00:42 Active Conventional Machinist STAT Care 12/13/20 22:53 Active EKG-ER Only STAT Care 12/13/20 22:53 Active IV Insertion STAT Care 12/13/20 22:53 Active Pulse Oximetry (ED) STAT Care 12/13/20 22:53 Active CHEST 1 VIEW (PORTABLE) Stat Exams 12/13/20 22:53 Taken CBC W DIFF Stat Lab 12/13/20 23:15 Completed CMP Stat Lab 12/13/20 22:53 Completed TROPONIN Q3H Lab 12/13/20 23:00 Completed TROPONIN Q3H Lab 12/14/20 02:00 Ordered TROPONIN Q3H Lab 12/14/20 05:00 Ordered TROPONIN Q3H Lab 12/14/20 08:00 Ordered TROPONIN Q3H Lab 12/14/20 11:00 Ordered UA W/RFX UR CULTURE Stat Lab 12/13/20 23:27 Completed Medication Summary Generic Name Dose Route Start Last Admin Trade Name Freq PRN Reason Stop Dose Admin Sodium Chloride 1,000 mls @ 999 mls/hr 12/14/20 00:03 12/14/20 00:21 Sodium Chloride 0.9% 1000 Ml IV 12/14/20 01:03 999 mls/hr .Q1H1M STA Administration Discontinued Medications Generic Name Dose Route Start Last Admin Trade Name Freq PRN Reason Stop Dose Admin Diphenhydramine HCl 25 mg 12/14/20 00:18 12/14/20 00:29 Diphenhydramine Hcl 50 Mg/Ml Vial IV 12/14/20 00:19 25 mg STAT ONE Administration Lab/Rad Data: Laboratory Result Diagrams 12/13/20 23:15 12/13/20 22:53 Laboratory Results 12/13/20 12/13/20 12/13/20 Range/Units 23:27 23:15 23:00 WBC 10.4 (4.0-10.5) K/mm3 RBC 3.60 L (4.1-5.4) M/mm3 Hgb 11.5 L (12.0-16.0) gm/dl Hct 36.1 (35-47) % MCV 100.3 H (78-100) fl MCH 31.9 (26-32) pg MCHC 31.9 L (32-36) g/dl RDW 14.5 H (11.5-14.0) % Plt Count 222 (150-450) K/mm3 MPV 9.2 (7.5-11.0) fl Gran % 66.0 (36.0-66.0) % Eos # (Auto) 0.18 (0-0.5) Absolute Lymphs (auto) 2.28 (1.0-4.6) Absolute Monos (auto) 1.02 (0.0-1.3) Lymphocytes % 22.0 L (24.0-44.0) % Monocytes % 9.8 (0.0-12.0) % Eosinophils % 1.7 (0.00-5.0) % Basophils % 0.5 (0.0-0.4) % Absolute Granulocytes 6.83 (1.4-6.9) Basophils # 0.05 (0-0.4) Sodium (137-145) mmol/L Potassium (3.5-5.1) mmol/L Chloride (98-107) mmol/L Carbon Dioxide (22-30) mmol/L Anion Gap (5-15) MEQ/L BUN (7-17) mg/dL Creatinine (0.52-1.04) mg/dL Estimated GFR ML/MIN Glucose (74-106) mg/dL Calcium (8.4-10.2) mg/dL Total Bilirubin (0.2-1.3) mg/dL AST (14-36) U/L ALT (0-35) U/L Alkaline Phosphatase (38-126) U/L Troponin I < 0.012 (0.000-0.034) ng/mL Serum Total Protein (6.3-8.2) g/dL Albumin (3.5-5.0) g/dL Urine Color STRAW (YELLOW) Urine Appearance CLEAR (CLEAR) Urine pH 6.0 (5-6) Ur Specific [place] 1.006 (1.005-1.025) Urine Protein NEGATIVE (Negative) Urine Ketones NEGATIVE (NEGATIVE) Urine Blood NEGATIVE (0-5) [place]/ul Urine Nitrite NEGATIVE (NEGATIVE) Urine Bilirubin NEGATIVE (NEGATIVE) Urine Urobilinogen NEGATIVE (0-1) mg/dL Ur Leukocyte Esterase NEGATIVE (NEGATIVE) Urine WBC (Auto) 0-2 (0-5) /HPF Urine RBC (Auto) 0-2 (0-2) /HPF U Epithel Cells (Auto) RARE (FEW) /HPF Urine Bacteria (Auto) NONE (NEGATIVE) /HPF Urine Culture Reflexed NO (NO) Urine Glucose NEGATIVE (NEGATIVE) mg/dL 12/13/20 Range/Units 22:53 WBC (4.0-10.5) K/mm3 RBC (4.1-5.4) M/mm3 Hgb (12.0-16.0) gm/dl Hct (35-47) % MCV (78-100) fl MCH (26-32) pg MCHC (32-36) g/dl RDW (11.5-14.0) % Plt Count (150-450) K/mm3 MPV (7.5-11.0) fl Gran % (36.0-66.0) % Eos # (Auto) (0-0.5) Absolute Lymphs (auto) (1.0-4.6) Absolute Monos (auto) (0.0-1.3) Lymphocytes % (24.0-44.0) % Monocytes % (0.0-12.0) % Eosinophils % (0.00-5.0) % Basophils % (0.0-0.4) % Absolute Granulocytes (1.4-6.9) Basophils # (0-0.4) Sodium 134 L (137-145) mmol/L Potassium 4.5 (3.5-5.1) mmol/L Chloride 102 (98-107) mmol/L Carbon Dioxide 25 (22-30) mmol/L Anion Gap 11.8 (5-15) MEQ/L BUN 8 (7-17) mg/dL Creatinine 0.56 (0.52-1.04) mg/dL Estimated GFR > 60.0 ML/MIN Glucose 107 H (74-106) mg/dL Calcium 9.3 (8.4-10.2) mg/dL Total Bilirubin 0.30 (0.2-1.3) mg/dL AST 18 (14-36) U/L ALT 12 (0-35) U/L Alkaline Phosphatase 49 (38-126) U/L Troponin I (0.000-0.034) ng/mL Serum Total Protein 6.7 (6.3-8.2) g/dL Albumin 4.0 (3.5-5.0) g/dL Urine Color (YELLOW) Urine Appearance (CLEAR) Urine pH (5-6) Ur Specific [place] (1.005-1.025) Urine Protein (Negative) Urine Ketones (NEGATIVE) Urine Blood (0-5) [place]/ul Urine Nitrite (NEGATIVE) Urine Bilirubin (NEGATIVE) Urine Urobilinogen (0-1) mg/dL Ur Leukocyte Esterase (NEGATIVE) Urine WBC (Auto) (0-5) /HPF Urine RBC (Auto) (0-2) /HPF U Epithel Cells (Auto) (FEW) /HPF Urine Bacteria (Auto) (NEGATIVE) /HPF Urine Culture Reflexed (NO) Urine Glucose (NEGATIVE) mg/dL - Progress Progress: improved Progress Note: Case discussed with Dr. Guillaume who in light of patient's multiple seizures advised transfer to an outside hospital with neurology. We contacted various hospitals and no hospital was available to accept transfer. Patient was Covid negative. Patient son this evening. Patient does not want to stay in the hospital. Patient requesting discharge to be with family. We advised patient that going home was not a good idea as the risks of recurrent seizure and possible was a considerably high probability. In spite of her risks she has decided leave AMA. Patient's is at the bedside he states he will be at home with her at all times. Patient is of sound mind. Patient is appropriate to make informed and independent medical decisions. Patient understands that leaving AGAINST MEDICAL ADVICE can result in delayed diagnosis, increased risk of morbidity, mortality, short and long-term disability including . In spite of these risks, patient has decided to leave AGAINST MEDICAL ADVICE. Patient understands that she may return to our ED at any point if she reconsiders. Patient agrees to follow-up with her primary care doctor within 48 hours for reevaluation. Patient voices no other complaints or concerns at this time. We will release patient AGAINST MEDICAL ADVICE per their request. 12/14/20 00:43 Portions of this note were created with voice recognition technology. There may be grammatical, spelling, punctuation or sound alike errors Counseled pt/family regarding: lab results, diagnosis, need for follow-up, rad results - Departure Departure Disposition: AMA Clinical Impression: Megaloblastic anemia, Seizure Condition: Stable Critical Care Time: No Referrals: AURORA MARI MD [Primary Care Provider] - Additional Instructions: Discharge/Care Plan LUCY SHARPE was seen on 12/14/20 in the Emergency Room. The patient was counseled regarding Diagnosis,Lab results, Imaging studies, need for follow up and when to return to the Emergency Room. Prescriptions given: Discharge Note I have spoken with the patient and/or caregivers. I have explained the patient's condition, diagnosis and treatment plan based on the information available to me at this time. I have answered the patient's and/or caregiver's questions and addressed any concerns. The patient and/or caregivers have as good understanding of the patient's diagnosis, condition and treatment plan as can be expected at this point. The vital signs have been stable. The patient's condition is stable and appropriate for discharge from the emergency department. The patient will pursue further outpatient evaluation with the primary care physician or other designated or consulting physician as outlined in the discharge instructions. The patient and/or caregivers are agreeable to this plan of care and follow-up instructions have been explained in detail. The patient and/or caregivers have received these instruction. The patient/and or caregivers are aware that any significant change in condition or worsening of symptoms should prompt an immediate return to this or the closest emergency department or call 911.
[2020-12-14] MEDS ORDERED: Sodium Chloride 0.9% 1000 ML 1,000 ML IV STA (00:03)
[2020-12-14] MEDS ORDERED: BENADRYL 50 MG/ML IV ONE (00:18)
[2020-12-14] MEDS ORDERED: Sodium Chloride 0.9% 1000 ML 1,000 ML ONE (00:21)
[2020-12-14] MEDS ORDERED: BENADRYL 50 MG/ML ONE (00:27)
[2020-12-14 00:39] LABS: Appearance CLEAR (CLEAR); Bilirubin NEGATIVE (NEGATIVE); Blood NEGATIVE Ery/ul (0-5); Epithelial Cells RARE /HPF (FEW); Glucose NEGATIVE (NEGATIVE); Ketones NEGATIVE (NEGATIVE); Leukocyte Esterase NEGATIVE (NEGATIVE); Nitrite NEGATIVE (NEGATIVE); Protein,Urine Dip NEGATIVE (Negative); RBC 0-2 /HPF (0-2); Specific Gravity 1.006 (1.005-1.025); Urobilinogen NEGATIVE mg/dL (0-1); WBC 0-2 /HPF (0-5)
[2020-12-14 02:43] VITALS: BP 177/95; PULSE 83
--- NOTE | 2020-12-14 08:46 | XRAY ---
Indication: Pneumonia. Comparison: April 25, 2018. Portable chest is now clear. Heart and mediastinal structures within normal limits. Bony thorax intact again with mild osteopenia and degenerative changes. Impression: Nonacute chest.
--- NOTE | 2020-12-15 07:30 | ERPHSYRPT ---
- History of Present Illness Time Seen by Provider: 12/13/20 22:55 Source: patient Exam Limitations: no limitations Patient Subjective Stated Complaint: I felt a little funny so I took my night meds, then I got up and felt warm inside so I called the ambulance Triage Nursing Assessment: pt c/o "feeling warm" inside, a cough and vomiting some mucous occasionally. No cough noted here. Lungs clear, heart tones reg, abd soft with active bs x4 quad, nontender. Pt called EMS cause she didn't feel right and was brought in. Pt in alert and oriented x4, cooperative. Physician History: Patient is a 70-year-old female presents to our ED via EMS for evaluation due to "not feeling right. Patient states that she began to feel "funny". Patient took her nighttime meds and began to feel warm inside. Patient observed that this was abnormal and called EMS. No pain. No nausea or vomiting. No fever. No trauma. No rash. No shortness of breath. Symptoms are mild in intensity. No specific worsening improving factors. Patient admits to an occasional cough. Patient vomited once. No vomiting at this time. Patient has been tolerating p.o. No diarrhea. Patient appears somewhat anxious. She voices no other com plaints at this time. Timing/Duration: today Severity: mild Modifying Factors: Improves With: nothing Associated Symptoms: cough, No nausea, No vomiting, No abdominal pain, No shortness of breath, No diaphoresis, No chest pain, No fever, No weakness Allergies/Adverse Reactions: meperidine HCl [From Demerol] Adverse Reaction (Mild, Verified 12/13/20 23:01) Vomiting Home Medications: Gabapentin 400 mg [Neurontin 400 MG] 800 mg PO TID 05/12/15 [History] Hydrocodone/APAP 10/325 mg [[place] 10/325 MG TableT] 1 tab PO Q6H PRN PRN 12/04/16 [History] Levothyroxine Sodium 137 mcg PO DAILY 12/04/16 [History] Quinapril HCl 40 mg PO DAILY 12/04/16 [History] Trazodone HCl 150 mg PO HS 12/04/16 [History] Aspirin EC 81 mg [Ecotrin 81 mg] 81 mg PO DAILY 09/25/20 [History] Metformin HCl Xr 500 mg [Glucophage XR 500 MG] 1,000 mg PO BID 09/25/20 [History] PANTOPRAZOLE 40 mg Tablet [Protonix 40MG Tablet] 40 mg PO DAILY 09/25/20 [History] Atorvastatin Calcium [Lipitor 40Mg] 40 mg PO DAILY 10/13/20 [History] Cyanocobalamin 1000 Mcg/ml [Cyanocobalamin B-12 1000 MCG/ML] 0.1 ml IM UD 12/13/20 [History] Naldemedine Tosylate [Symproic] 0.2 mg PO DAILY 12/13/20 [History] Sennosides [Senokot] 8.6 mg PO DAILY 12/13/20 [History] Hx Tetanus, Diphtheria Vaccination/Date Given: Yes Hx Influenza Vaccination/Date Given: No Hx Pneumococcal Vaccination/Date Given: Yes Immunizations Up to Date: Yes Travel Risk - International Travel Have you traveled outside of the country in past 3 weeks: No - Coronavirus Screening Close contact with a COVID-19 positive Pt in past 14-21 Days: No - Vaccine Status Have you recieved a Covid-19 vaccination: Yes Acid Extractor: Unknown - Vaccination Dates Date of 2cond Vaccination (if applicable): . Dates if Unknown: . - Review of Systems Constitutional: No Symptoms, No Fever, No Chills Eyes: No Symptoms Ears, Nose, & Throat: No Symptoms Respiratory: No Symptoms, No Cough, No Dyspnea Cardiac: No Symptoms, No Chest Pain, No Edema, No Syncope Abdominal/Gastrointestinal: No Symptoms, No Abdominal Pain, No Nausea, No Vomiting, No Diarrhea Genitourinary Symptoms: No Symptoms, No Dysuria Musculoskeletal: No Symptoms, No Back Pain, No Neck Pain Skin: No Symptoms, No Rash Neurological: No Symptoms, No Dizziness, No Focal Weakness, No Sensory Changes Psychological: No Symptoms Endocrine: No Symptoms Hematologic/Lymphatic: No Symptoms Immunological/Allergic: No Symptoms All Other Systems: Reviewed and Negative - Past Medical History Pertinent Past Medical History: Yes Neurological History: No Pertinent History ENT History: No Pertinent History Cardiac History: High Cholesterol, Hypertension Respiratory History: No Pertinent History Endocrine Medical History: Diabetes Type II, Hypothyroidism Musculoskeletal History: No Pertinent History GI Medical History: Colitis, Diverticulitis, Diverticulosis, GERD, Other History: No Pertinent History Psycho-Social History: Anxiety, Depression Female Reproductive Disorders: No Pertinent History Other Medical History: bleeding ulcer. skin cancer lt arm - Past Surgical History Past Surgical History: Yes Neuro Surgical History: No Pertinent History Cardiac: No Pertinent History Respiratory: No Pertinent History Gastrointestinal: Cholecystectomy Genitourinary: No Pertinent History Musculoskeletal: No Pertinent History Female Surgical History: Hysterectomy Other Surgical History: thryoid - Social History Smoking Status: Current every day smoker How long have you smoked: 35 yrs Exposure to second hand smoke: No Drug Use: none Patient Lives Alone: Yes - Nursing Vital Signs Nursing Vital Signs: Initial Vital Signs Temperature 98.9 F 12/13/20 22:49 Pulse Rate 88 12/13/20 22:49 Respiratory Rate 24 12/13/20 22:49 Blood Pressure 184/88 12/13/20 22:49 O2 Sat by Pulse Oximetry 98 12/13/20 22:49 Pain Scale Pain Intensity 0 - Physical Exam General Appearance: no apparent distress, alert, other (appears anxious) Eye Exam: PERRL/EOMI, eyes nml inspection Ears, Nose, Throat Exam: normal ENT inspection, TMs normal, pharynx normal, moist mucous membranes Neck Exam: normal inspection, non-tender, supple, full range of motion Respiratory Exam: normal breath sounds, lungs clear, airway intact, No respiratory distress Cardiovascular Exam: regular rate/rhythm, normal heart sounds, normal peripheral pulses Gastrointestinal/Abdomen Exam: soft, normal bowel sounds, No tenderness, No mass Back Exam: normal inspection, normal range of motion, No CVA tenderness, No vertebral tenderness Extremity Exam: normal inspection, normal range of motion, pelvis stable Neurologic Exam: alert, oriented x 3, cooperative, normal mood/affect, nml cerebellar function, nml station & gait, sensation nml, No motor deficits Skin Exam: normal color, warm, dry, No rash Lymphatic Exam: No adenopathy SpO2 Interpretation: normal SpO2: 98 O2 Delivery: Room Air - Course Nursing assessment & vital signs reviewed: Yes EKG Interpreted by Me: RATE, Sinus Rhythm, NORMAL AXIS, NORMAL INTERVALS - Radiology Exams Chest X-ray Interpretation: Interpreted by me (Interpreted by me (No infiltrate or consolidation. Normal cardiac silhouette. Intact bony thorax. Osteopenia. Previous bilateral pneumonia observed on 04/25/2018 resolved.), Other (Bilateral shoulders appear to be somewhat subluxed inferiorly however clinically there is no subluxation observed)) Ordered Tests: Medication Summary Discontinued Medications Generic Name Dose Route Start Last Admin Trade Name Louis PRN Reason Stop Dose Admin Diphenhydramine HCl 25 mg 12/14/20 00:18 12/14/20 00:29 Diphenhydramine Hcl 50 Mg/Ml Vial IV 12/14/20 00:19 25 mg STAT ONE Administration Diphenhydramine HCl Confirm 12/14/20 00:27 Diphenhydramine Hcl 50 Mg/Ml Vial Administered 12/14/20 00:28 Dose 50 mg .ROUTE .STK-MED ONE Sodium Chloride 1,000 mls @ 999 mls/hr 12/14/20 00:03 12/14/20 00:21 Sodium Chloride 0.9% 1000 Ml IV 12/14/20 01:03 999 mls/hr .Q1H1M STA Administration Sodium Chloride Confirm 12/14/20 00:21 Sodium Chloride 0.9% 1000 Ml Administered 12/14/20 00:22 Dose 1,000 mls @ ud .ROUTE .STK-MED ONE Lab/Rad Data: Laboratory Result Diagrams 12/13/20 23:15 12/13/20 22:53 Laboratory Results 12/14/20 12/13/20 12/13/20 Range/Units 02:00 23:27 23:15 WBC 10.4 (4.0-10.5) K/mm3 RBC 3.60 L (4.1-5.4) M/mm3 Hgb 11.5 L (12.0-16.0) gm/dl Hct 36.1 (35-47) % MCV 100.3 H (78-100) fl MCH 31.9 (26-32) pg MCHC 31.9 L (32-36) g/dl RDW 14.5 H (11.5-14.0) % Plt Count 222 (150-450) K/mm3 MPV 9.2 (7.5-11.0) fl Gran % 66.0 (36.0-66.0) % Eos # (Auto) 0.18 (0-0.5) Absolute Lymphs (auto) 2.28 (1.0-4.6) Absolute Monos (auto) 1.02 (0.0-1.3) Lymphocytes % 22.0 L (24.0-44.0) % Monocytes % 9.8 (0.0-12.0) % Eosinophils % 1.7 (0.00-5.0) % Basophils % 0.5 (0.0-0.4) % Absolute Granulocytes 6.83 (1.4-6.9) Basophils # 0.05 (0-0.4) Sodium (137-145) mmol/L Potassium (3.5-5.1) mmol/L Chloride (98-107) mmol/L Carbon Dioxide (22-30) mmol/L Anion Gap (5-15) MEQ/L BUN (7-17) mg/dL Creatinine (0.52-1.04) mg/dL Estimated GFR ML/MIN Glucose (74-106) mg/dL Calcium (8.4-10.2) mg/dL Total Bilirubin (0.2-1.3) mg/dL AST (14-36) U/L ALT (0-35) U/L Alkaline Phosphatase (38-126) U/L Troponin I < 0.012 (0.000-0.034) ng/mL Serum Total Protein (6.3-8.2) g/dL Albumin (3.5-5.0) g/dL Urine Color STRAW (YELLOW) Urine Appearance CLEAR (CLEAR) Urine pH 6.0 (5-6) Ur Specific [place] 1.006 (1.005-1.025) Urine Protein NEGATIVE (Negative) Urine Ketones NEGATIVE (NEGATIVE) Urine Blood NEGATIVE (0-5) [place]/ul Urine Nitrite NEGATIVE (NEGATIVE) Urine Bilirubin NEGATIVE (NEGATIVE) Urine Urobilinogen NEGATIVE (0-1) mg/dL Ur Leukocyte Esterase NEGATIVE (NEGATIVE) Urine WBC (Auto) 0-2 (0-5) /HPF Urine RBC (Auto) 0-2 (0-2) /HPF U Epithel Cells (Auto) RARE (FEW) /HPF Urine Bacteria (Auto) NONE (NEGATIVE) /HPF Urine Culture Reflexed NO (NO) Urine Glucose NEGATIVE (NEGATIVE) mg/dL 12/13/20 12/13/20 Range/Units 23:00 22:53 WBC (4.0-10.5) K/mm3 RBC (4.1-5.4) M/mm3 Hgb (12.0-16.0) gm/dl Hct (35-47) % MCV (78-100) fl MCH (26-32) pg MCHC (32-36) g/dl RDW (11.5-14.0) % Plt Count (150-450) K/mm3 MPV (7.5-11.0) fl Gran % (36.0-66.0) % Eos # (Auto) (0-0.5) Absolute Lymphs (auto) (1.0-4.6) Absolute Monos (auto) (0.0-1.3) Lymphocytes % (24.0-44.0) % Monocytes % (0.0-12.0) % Eosinophils % (0.00-5.0) % Basophils % (0.0-0.4) % Absolute Granulocytes (1.4-6.9) Basophils # (0-0.4) Sodium 134 L (137-145) mmol/L Potassium 4.5 (3.5-5.1) mmol/L Chloride 102 (98-107) mmol/L Carbon Dioxide 25 (22-30) mmol/L Anion Gap 11.8 (5-15) MEQ/L BUN 8 (7-17) mg/dL Creatinine 0.56 (0.52-1.04) mg/dL Estimated GFR > 60.0 ML/MIN Glucose 107 H (74-106) mg/dL Calcium 9.3 (8.4-10.2) mg/dL Total Bilirubin 0.30 (0.2-1.3) mg/dL AST 18 (14-36) U/L ALT 12 (0-35) U/L Alkaline Phosphatase 49 (38-126) U/L Troponin I < 0.012 (0.000-0.034) ng/mL Serum Total Protein 6.7 (6.3-8.2) g/dL Albumin 4.0 (3.5-5.0) g/dL Urine Color (YELLOW) Urine Appearance (CLEAR) Urine pH (5-6) Ur Specific [place] (1.005-1.025) Urine Protein (Negative) Urine Ketones (NEGATIVE) Urine Blood (0-5) [place]/ul Urine Nitrite (NEGATIVE) Urine Bilirubin (NEGATIVE) Urine Urobilinogen (0-1) mg/dL Ur Leukocyte Esterase (NEGATIVE) Urine WBC (Auto) (0-5) /HPF Urine RBC (Auto) (0-2) /HPF U Epithel Cells (Auto) (FEW) /HPF Urine Bacteria (Auto) (NEGATIVE) /HPF Urine Culture Reflexed (NO) Urine Glucose (NEGATIVE) mg/dL - Progress Progress: improved Progress Note: 12/14/20 02:31 LUCY SHARPE WAS REASSESSED. HER SYMPTOMS RESOLVED. VITAL STABLE. TROPONIN NEGATIVE X 2. LUNGS CLEAR. EKG NSR. UA NEGATIVE FOR UTI Portions of this note were created with voice recognition technology. There may be grammatical, spelling, punctuation or sound alike errors Counseled pt/family regarding: lab results, diagnosis, need for follow-up, rad results - Departure Departure Disposition: Home Clinical Impression: Anxiety Condition: Stable Critical Care Time: No Referrals: AURORA MARI MD [Primary Care Provider] - Instructions: Anxiety, Adult (DC) Additional Instructions: Discharge/Care Plan LUCY SHARPE was seen on 12/14/20 in the Emergency Room. The patient was counseled regarding Diagnosis,Lab results, Imaging studies, need for follow up and when to return to the Emergency Room. Prescriptions given: Discharge Note I have spoken with the patient and/or caregivers. I have explained the patient's condition, diagnosis and treatment plan based on the information available to me at this time. I have answered the patient's and/or caregiver's questions and addressed any concerns. The patient and/or caregivers have as good understanding of the patient's diagnosis, condition and treatment plan as can be expected at this point. The vital signs have been stable. The patient's condition is stable and appropriate for discharge from the emergency department. The patient will pursue further outpatient evaluation with the primary care physician or other designated or consulting physician as outlined in the discharge instructions. The patient and/or caregivers are agreeable to this plan of care and follow-up instructions have been explained in detail. The patient an d/or caregivers have received these instruction. The patient/and or caregivers are aware that any significant change in condition or worsening of symptoms should prompt an immediate return to this or the closest emergency department or call 911.
[2020-12-15 07:39] VITALS: O2SAT 98
== END 2020-12-14 02:44 | disposition home or self-care (01) ==
LOC: ED 22:46
DX: D53.1 Other megaloblastic anemias, not elsewhere classified (principal); G40.909 Epilepsy, unspecified, not intractable, without status epilepticus; E11.9 Type 2 diabetes mellitus without complications; I10 Essential (primary) hypertension; E03.9 Hypothyroidism, unspecified; Z79.899 Other long term (current) drug therapy
CPT/HCPCS: 36000; 36415; 71045; 80053; 81001; 84484; 85025; 93005; 93041; 94760; 96374; 99284; J1200

== ENCOUNTER 2020-12-27 17:42 | Emergency (ER) | payer MEDICARE ==
--- NOTE | 2020-12-27 17:51 | ERPHSYRPT ---
- History of Present Illness Source: patient Exam Limitations: no limitations Timing/Duration: week(s) (2) Associated Symptoms: abdominal pain, No nausea, No vomiting, No shortness of breath Hx Tetanus, Diphtheria Vaccination/Date Given: Yes Hx Influenza Vaccination/Date Given: No Hx Pneumococcal Vaccination/Date Given: Yes <AMANDA DENIS - Last Filed: 12/27/20 19:14> <SHAKIRA KIM - Last Filed: 12/27/20 20:24> - History of Present Illness Time Seen by Provider: 12/27/20 17:50 Physician History: The patient is a 70-year-old female who presents with a chief complaint of a burning sensation to her abdomen. Onset reported was 2 weeks ago. She states she has had a burning sensation located in her lower chest to epigastric region and periumbilical region that it just hurts all over. She reported he was admitted recently for this complaint and was told that "she may have anxiety" and that they could not find the reason for her complaint. She subsequently was discharged to follow-up with her primary care provider but did not mention anything about the burning sensation in her abdomen. She reportedly has been told that she has a "lazy colon" by what is believed to be a plant pathology teacher in the past given that she has had "ongoing issues with her stomach" after having a colonoscopy. She denies nausea, vomiting, chest pain, shortness of breath, diarrhea or constipation. There is no report of rectal bleeding or hematochezia. (AMANDA DENIS) Allergies/Adverse Reactions: meperidine HCl [From Demerol] Adverse Reaction (Mild, Verified 12/27/20 18:11) Vomiting Home Medications: Gabapentin 400 mg [Neurontin 400 MG] 800 mg PO TID 05/12/15 [History] Hydrocodone/APAP 10/325 mg [[place] 10/325 MG TableT] 1 tab PO Q6H PRN PRN 12/04/16 [History] Levothyroxine Sodium 137 mcg PO DAILY 12/04/16 [History] Quinapril HCl 40 mg PO DAILY 12/04/16 [History] Aspirin EC 81 mg [Ecotrin 81 mg] 81 mg PO DAILY 09/25/20 [History] Metformin HCl Xr 500 mg [Glucophage XR 500 MG] 1,000 mg PO BID 09/25/20 [History] PANTOPRAZOLE 40 mg Tablet [Protonix 40MG Tablet] 40 mg PO DAILY 09/25/20 [History] Atorvastatin Calcium [Lipitor 40Mg] 40 mg PO DAILY 10/13/20 [History] Cyanocobalamin 1000 Mcg/ml [Cyanocobalamin B-12 1000 MCG/ML] 0.1 ml IM UD 12/13/20 [History] Armodafinil [Nuvigil] 250 mg PO DAILY 12/27/20 [History] Multivitamin/Iron/Folic Acid [[place] Adults Tablet] 1 each PO DAILY 12/27/20 [History] Senna/Docusate Sodium Tab [Senokot-S Tablet] 1 each PO HS 12/27/20 [History] Travel Risk - Vaccine Status Have you recieved a Covid-19 vaccination: Yes Record Center Coordinator: Unknown - Vaccination Dates Date of 2cond Vaccination (if applicable): . Dates if Unknown: . <AMANDA DENIS - Last Filed: 12/27/20 19:14> - Review of Systems Constitutional: No Fever, No Chills Respiratory: No Symptoms, No Cough Cardiac: No Chest Pain Abdominal/Gastrointestinal: Abdominal Pain, No Nausea, No Vomiting, No Hemate mesis, No Hematochezia, No Melena Genitourinary Symptoms: No Symptoms Musculoskeletal: No Symptoms, No Back Pain, No Neck Pain, No Deformity, No Fall Skin: No Symptoms Neurological: No Symptoms Psychological: No Symptoms Endocrine: No Symptoms Hematologic/Lymphatic: No Symptoms Immunological/Allergic: No Symptoms All Other Systems: Reviewed and Negative <AMANDA DENIS - Last Filed: 12/27/20 19:14> - Past Medical History Pertinent Past Medical History: Yes Neurological History: No Pertinent History ENT History: No Pertinent History Cardiac History: High Cholesterol, Hypertension Respiratory History: No Pertinent History Endocrine Medical History: Diabetes Type II, Hypothyroidism Musculoskeletal History: No Pertinent History GI Medical History: Colitis, Diverticulitis, Diverticulosis, GERD, Other History: No Pertinent History Psycho-Social History: Anxiety, Depression Female Reproductive Disorders: No Pertinent History Other Medical History: bleeding ulcer. skin cancer lt arm - Past Surgical History Past Surgical History: Yes Neuro Surgical History: No Pertinent History Cardiac: No Pertinent History Respiratory: No Pertinent History Gastrointestinal: Cholecystectomy Genitourinary: No Pertinent History Musculoskeletal: No Pertinent History Female Surgical History: Hysterectomy Other Surgical History: thryoid - Social History Smoking Status: Current every day smoker How long have you smoked: 35 yrs Exposure to second hand smoke: No Drug Use: none Patient Lives Alone: Yes <ADEELAMANDA PALMER - Last Filed: 12/27/20 19:14> - Physical Exam General Appearance: no apparent distress, alert, anxiety (Appears anxious) Ears, Nose, Throat Exam: pharynx normal, No pharyngeal erythema, No tonsillar exudate Neck Exam: normal inspection, supple, No non-tender Respiratory Exam: normal breath sounds, lungs clear, airway intact, No chest tenderness, No respiratory distress, No diminished breath sounds, No accessory muscle use Cardiovascular Exam: regular rate/rhythm, normal heart sounds, normal peripheral pulses, capillary refill <2 sec, No murmur, No friction rub, No gallop Gastrointestinal/Abdomen Exam: soft, No tenderness, No distention, No mass, No guarding, No rebound Pelvic Exam: not done Extremity Exam: normal inspection Neurologic Exam: alert, oriented x 3, cooperative, normal mood/affect Skin Exam: normal color, warm, dry, No rash SpO2 Interpretation: normal O2 Delivery: Room Air <ADEELAMANDA - Last Filed: 12/27/20 19:14> - Nursing Vital Signs Nursing Vital Signs: Initial Vital Signs Temperature 97.6 F 12/27/20 17:54 Pulse Rate 84 12/27/20 17:54 Respiratory Rate 20 12/27/20 17:54 Blood Pressure 175/60 12/27/20 17:54 O2 Sat by Pulse Oximetry 99 12/27/20 17:54 Pain Scale Pain Intensity 8 - Course Nursing assessment & vital signs reviewed: Yes EKG Interpreted by Me: RATE, NORMAL AXIS, NORMAL INTERVALS, NORMAL QRS, Other (No evidence of acute myocardial ischemia or injury pattern) <AMANDA DENIS - Last Filed: 12/27/20 19:14> Ordered Tests: Active Orders 24 hr Category Date Time Status EKG-ER Only STAT Care 12/27/20 18:24 Active IV Insertion STAT Care 12/27/20 18:24 Active ABDOMEN AND PELVIS W CONTRAST [CT] Stat Exams 12/27/20 18:30 Taken BMP Stat Lab 12/27/20 18:35 Completed CBC W DIFF Stat Lab 12/27/20 18:35 Completed Hepatic Function Panel Stat Lab 12/27/20 18:35 Completed LIPASE Stat Lab 12/27/20 18:35 Completed TROPONIN Stat Lab 12/27/20 18:35 Completed UA W/RFX UR CULTURE Stat Lab 12/27/20 19:22 Completed Medication Summary Discontinued Medications Generic Name Dose Route Start Last Admin Trade Name Davidq PRN Reason Stop Dose Admin Pantoprazole Sodium 40 mg 12/27/20 18:24 12/27/20 18:32 Pantoprazole 40 Mg Vial IV 12/27/20 18:25 40 mg STAT ONE Administration Pantoprazole Sodium Confirm 12/27/20 18:31 Pantoprazole 40 Mg Vial Administered 12/27/20 18:32 Dose 40 mg IV .STK-MED ONE Lab/Rad Data: Laboratory Result Diagrams 12/27/20 18:35 12/27/20 18:35 Laboratory Results 12/27/20 12/27/20 12/27/20 Range/Units 19:22 18:35 18:35 WBC 7.7 (4.0-10.5) K/mm3 RBC 3.78 L (4.1-5.4) M/mm3 Hgb 12.1 (12.0-16.0) gm/dl Hct 37.2 (35-47) % MCV 98.4 (78-100) fl MCH 32.0 (26-32) pg MCHC 32.5 (32-36) g/dl RDW 14.0 (11.5-14.0) % Plt Count 305 (150-450) K/mm3 MPV 9.5 (7.5-11.0) fl Gran % 73.7 H (36.0-66.0) % Eos # (Auto) 0.09 (0-0.5) Absolute Lymphs (auto) 1.39 (1.0-4.6) Absolute Monos (auto) 0.51 (0.0-1.3) Lymphocytes % 18.1 L (24.0-44.0) % Monocytes % 6.6 (0.0-12.0) % Eosinophils % 1.2 (0.00-5.0) % Basophils % 0.4 (0.0-0.4) % Absolute Granulocytes 5.67 (1.4-6.9) Basophils # 0.03 (0-0.4) Sodium 129 L (137-145) mmol/L Potassium 4.9 (3.5-5.1) mmol/L Chloride 97 L (98-107) mmol/L Carbon Dioxide 23 (22-30) mmol/L Anion Gap 14.3 (5-15) MEQ/L BUN 15 (7-17) mg/dL Creatinine 0.69 (0.52-1.04) mg/dL Estimated GFR > 60.0 ML/MIN Glucose 156 H (74-106) mg/dL Calcium 9.6 (8.4-10.2) mg/dL Total Bilirubin 0.40 (0.2-1.3) mg/dL Direct Bilirubin 0 (0.0-0.4) mg/dL AST 26 (14-36) U/L ALT 18 (0-35) U/L Alkaline Phosphatase 57 (38-126) U/L Troponin I < 0.012 (0.000-0.034) ng/mL Serum Total Protein 7.0 (6.3-8.2) g/dL Albumin 4.2 (3.5-5.0) g/dL Lipase 120 (23-300) U/L Urine Color STRAW (YELLOW) Urine Appearance CLEAR (CLEAR) Urine pH 6.0 (5-6) Ur Specific [place] 1.004 (1.005-1.025) Urine Protein NEGATIVE (Negative) Urine Ketones NEGATIVE (NEGATIVE) Urine Blood NEGATIVE (0-5) [place]/ul Urine Nitrite NEGATIVE (NEGATIVE) Urine Bilirubin NEGATIVE (NEGATIVE) Urine Urobilinogen NEGATIVE (0-1) mg/dL Ur Leukocyte Esterase NEGATIVE (NEGATIVE) Urine WBC (Auto) NONE (0-5) /HPF Urine Culture Reflexed NO (NO) Urine Glucose NEGATIVE (NEGATIVE) mg/dL - Progress Progress: unchanged Counseled pt/family regarding: lab results, diagnosis, need for follow-up, rad results <AMANDA DENIS - Last Filed: 12/27/20 19:14> - Progress Progress: improved <SHAKIRA KIM - Last Filed: 12/27/20 20:24> - Progress Progress Note: 12/27/20 19:03 I reviewed the patient's EMR and it appears the patient had a short stay on September 25, 2020 and was discharged on September 26, 2020 for a chief complaint of high blood pressure. She had complaints of weakness and anxiety. I do not see where the patient complained of any burning sensation to her abdomen. Nor has she had any abdominal imaging during this hospitalization were leading up to the hospitalization. Given the patient's complaint of burning to her abdomen, this suggests likely gastritis or duodenitis or reflux component and I will treat with Protonix and reassess. Labs to include CBC, BMP, LFT, lipase and UA will be obtained. I will obtain a CT abdomen pelvis with contrast for further evaluation. 12/27/20 19:13 Patient care transitioned to Dr. Kim pending workup findings. (AMANDA DENIS) 12/27/20 20:23 On my reexam, patient's pain is improved. Labs and imaging unremarkable. CT scan shows nonobstructing right renal stone. Punctate. Also diverticulosis without diverticulitis. At this point time patient is feeling improved. Therefore will discharge home. Abdominal reexam with PCP in 24 hours. Otherwise return here for new or changing symptoms. She states understanding will follow-up as described. She will be discharged into the care of her daughter with cool stay with her tonight. (SHAKIRA KIM) <AMANDA DENIS - Last Filed: 12/27/20 19:14> - Departure Departure Disposition: Home Critical Care Time: No <SHAKIRA KIM - Last Filed: 12/27/20 20:24> - Departure Clinical Impression: Abdominal pain, Diverticulosis, Renal stone Condition: Stable Referrals: AURORA MARI MD [Primary Care Provider] -
[2020-12-27] MEDS ORDERED: PROTONIX 40 MG IV IV ONE ×2 (18:24→18:31)
[2020-12-27 18:41] LABS: Absolute Neutrophil Ct (ANC) 5.67 (1.4-6.9); BASOPHIL % 0.4 % (0.0-0.4); Basophil (Absolute #) 0.03 (0-0.4); Eosinophil % 1.2 % (0.00-5.0); Eosinophil (Absolute #) 0.09 (0-0.5); Hematocrit 37.2 % (35-47); Hemoglobin 12.1 gm/dl (12.0-16.0); Lymphocyte (Absolute #) 1.39 (1.0-4.6); Lymphocytes % 18.1 % (24.0-44.0); Mean Cell Volume 98.4 fl (78-100); Mean Corpuscular Hgb Concent. 32.5 g/dl (32-36); Mean Platelet Volume 9.5 fl (7.5-11.0); Monocyte (Absolute #) 0.51 (0.0-1.3); Monocytes % 6.6 % (0.0-12.0); Neutrophil % 73.7 % (36.0-66.0); Platelet Count 305 K/mm3 (150-450); Red Blood Count 3.78 M/mm3 (4.1-5.4); White Blood Count 7.7 K/mm3 (4.0-10.5)
[2020-12-27 19:11] LABS: ALBUMIN 4.2 g/dL (3.5-5.0); ALKALINE PHOSPHATASE 57 U/L (38-126); ANION GAP 14.3 MEQ/L (5-15); BLOOD UREA NITROGEN 15 mg/dL (7-17); CHLORIDE 97 mmol/L (98-107); Calcium 9.6 mg/dL (8.4-10.2); Carbon Dioxide 23 mmol/L (22-30); Creatinine 1 0.69 mg/dL (0.52-1.04); EST GLOMERULAR FILTRATION RATE > 60.0 ML/MIN; Glucose 156 mg/dL (74-106); LIPASE 120 U/L (23-300); Potassium 4.9 mmol/L (3.5-5.1); SGOT/AST 26 U/L (14-36); SGPT/ALT 18 U/L (0-35); SODIUM 129 mmol/L (137-145); TROPONIN < 0.012 ng/mL (0.000-0.034)
[2020-12-27 19:12] LABS: Direct Bilirubin 0 mg/dL (0.0-0.4)
[2020-12-27 19:36] LABS: Appearance CLEAR (CLEAR); Bilirubin NEGATIVE (NEGATIVE); Blood NEGATIVE Ery/ul (0-5); Glucose NEGATIVE (NEGATIVE); Ketones NEGATIVE (NEGATIVE); Leukocyte Esterase NEGATIVE (NEGATIVE); Nitrite NEGATIVE (NEGATIVE); Protein,Urine Dip NEGATIVE (Negative); Specific Gravity 1.004 (1.005-1.025); Urobilinogen NEGATIVE mg/dL (0-1)
[2020-12-27 20:31] VITALS: BP 146/55; PULSE 82; O2SAT 97
--- NOTE | 2020-12-28 08:41 | XRAY ---
Indication: Abdomen pain. Multiple contiguous images obtained through the abdomen and pelvis without contrast. Comparison: February 20, 2013. Lung bases now demonstrates tiny left lower lobe calcified granuloma. No infiltrate or effusion. Heart is not enlarged. Noncontrasted stomach and bowel loops appear nonobstructed. Normal appendix. Mild fecal debris predominantly in the ascending and proximal transverse colon. Distal descending/proximal sigmoid colon demonstrates mild diverticulosis without diverticulitis. Right kidney demonstrates new nonobstructing punctate calculus. Both kidneys again demonstrates perinephric stranding, more than before. Inflammatory/infectious process not completely excluded in the right clinical setting. No free fluid/air. Incidental cholecystectomy, hysterectomy, and tiny hepatic/splenic calcified granulomas. Remaining liver, pancreas, spleen, adrenal glands, kidneys, ureters, and bladder appear unremarkable for noncontrast exam. Progressive worsening moderate scattered aortoiliac calcifications without AAA. Osseous structures demonstrates mild osteopenia and minimal/mild degenerative changes throughout the spine. No ventral or inguinal hernias. Impression: 1. Interval increasing bilateral perinephric stranding. Finding nonspecific. Inflammatory/infectious process not completely excluded in the right clinical setting. 2. Mild fecal debris right hemicolon, distal colonic diverticulosis, nonobstructing right renal micro-calculus, chronic bony findings, and old granulomatous disease. 3. Remaining CT abdomen/pelvis without contrast exam is negative.
== END 2020-12-27 20:36 | disposition home or self-care (01) ==
LOC: ED 17:42
DX: R10.9 Unspecified abdominal pain (principal); K57.90 Diverticulosis of intestine, part unspecified, without perforation or abscess without bleeding; N20.0 Calculus of kidney; Z79.899 Other long term (current) drug therapy
CPT/HCPCS: 36000; 36415; 74177; 80048; 80076; 81001; 83690; 84484; 85025; 93005; 96374; 99284

== ENCOUNTER 2021-05-26 08:09 | Day surgery (SDC) | payer MEDICARE ==
--- NOTE | 2021-05-19 09:53 | HP ---
DATE OF SURGERY: 05/26/2021 HISTORY OF PRESENT ILLNESS: The patient presented with complaints of heartburn and acid reflux. The patient has had history of gastroesophageal reflux disease for some time. The patient states that she has had some ulcers in the past. The patient states she is having a flare up and would like an EGD. The patient has also had history of colon polyps on colonoscopy in the remote past. The patient is here for colonoscopy at this time. PAST MEDICAL HISTORY: Diabetes, thyroid, hyperlipidemia, gastroesophageal reflux disease. PAST SURGICAL HISTORY: Cholecystectomy. Thyroid surgery. ALLERGIES: MEPERIDINE. MEDICATIONS: Gabapentin, Metformin, levothyroxine, hydrocodone, aspirin, atorvastatin, pantoprazole, amlodipine, quinapril, amitriptyline, Milk of Magnesia, vitamin B12, magnesium. FAMILY HISTORY: None reported. SOCIAL HISTORY: None reported. REVIEW OF SYSTEMS: CONSTITUTIONAL: Denies fever or chills. CHEST: Denies shortness of breath. CVS: Denies chest pain. ABDOMEN: Reports epigastric pain. Denies nausea, vomiting, diarrhea, constipation or rectal bleeding. PHYSICAL EXAMINATION: GENERAL: No acute distress. CHEST: Nonlabored. No shortness of breath. CVS: Regular rate and rhythm. ABDOMEN: Soft, nontender. IMPRESSION: Acid reflux, history of gastroesophageal reflux disease and peptic ulcer disease and history of colon polyps. PLAN: EGD and colonoscopy with Dr. Dallas Paige. As dictated by Heather Galdamez NP.
[2021-05-26] MEDS ORDERED: Lactated Ringers 1,000 ML IV ONE (08:56)
[2021-05-26] MEDS ORDERED: Lactated Ringers 1,000 ML IV SCH (09:00)
[2021-05-26] MEDS ORDERED: Versed 2 MG/2 ML Injection IV ONE (09:08)
[2021-05-26] MEDS ORDERED: DIPRIVAN 200 MG/20 ML IV ONE ×2 (09:32→10:08)
[2021-05-26] MEDS ORDERED: Xylocaine-Mpf 2% 5 Ml Vial ONE (09:32)
[2021-05-26 11:18] VITALS: BP 140/60; PULSE 71; O2SAT 94
--- NOTE | 2021-05-26 12:06 | OP ---
SURGERY DATE/TIME: 05/26/2021 0958 PREOPERATIVE DIAGNOSES: 1) Gastroesophageal reflux disease. 2) Colon polyps. POSTOPERATIVE DIAGNOSES: Gross normal exam. PROCEDURES: 1) EGD. 2) Colonoscopy. SURGEON: Dallas Paige M.D. ANESTHESIA: MAC. COMPLICATIONS: None. CONDITION: Stable. INDICATION: The patient was referred for upper and lower abdominal endoscopic procedures. DESCRIPTION OF PROCEDURE: The patient was taken to endoscopy. Left lateral decubitus position. Pharyngoesophageal junction normal. Esophagus normal down to gastroesophageal junction. Gastroesophageal junction satisfactory today. Fundus, body and antrum there was some antritis. Cold biopsy was obtained. Duodenal bulb satisfactory. Second portion satisfactory. The scope withdrawn looped upon itself and satisfactory. The scope withdrawn. Anal digital examination there was some stool. Scope advanced. There was stool all the way, it was very gross prep but the scope did arrive at the cecum. On circumferential withdrawal, no gross lesions were present. PLAN: Instead of waiting five years will move this up to three years because of the prep. Plan three year follow up. The patient will need a double prep and special instructions.
== END 2021-05-26 11:25 | disposition home or self-care (01) ==
LOC: SDC 08:09
PROVIDERS: ATTEND Surgery
DX: K21.9 Gastro-esophageal reflux disease without esophagitis (principal); Z09 Encounter for follow-up examination after completed treatment for conditions other than malignant neoplasm; Z86.010 Personal history of colon polyps; E11.9 Type 2 diabetes mellitus without complications
CPT/HCPCS: 82947; 99100; J2250; J2704

== ENCOUNTER 2021-10-27 08:10 | Emergency (ER) | payer MEDICARE ==
[2021-10-27] MEDS ORDERED: Sodium Chloride 0.9% 1000 ML 1,000 ML IV STA (08:26)
[2021-10-27] MEDS ORDERED: BENADRYL 50 MG/ML IV ONE (08:26)
[2021-10-27] MEDS ORDERED: Sodium Chloride 0.9% 1000 ML 1,000 ML ONE (08:28)
[2021-10-27] MEDS ORDERED: BENADRYL 50 MG/ML ONE (08:28)
[2021-10-27 08:50] LABS: Absolute Neutrophil Ct (ANC) 6.42 x10^3/uL (1.4-6.9); Basophil (Absolute #) 0.05 x10^3/uL (0-0.4); Eosinophil % 0.2 % (0.00-5.0); Eosinophil (Absolute #) 0.02 x10^3/uL (0-0.5); Hematocrit 41.3 % (35-47); Lymphocyte (Absolute #) 1.64 x10^3/uL (1.0-4.6); Lymphocytes % 18.8 % (24.0-44.0); Mean Corpuscular Hemoglobin 31.5 pg (26-32); Mean Corpuscular Hgb Concent. 33.9 g/dL (32-36); Mean Platelet Volume 9.7 fL (7.5-11.0); Monocyte (Absolute #) 0.57 x10^3/uL (0.0-1.3); Monocytes % 6.5 % (0.0-12.0); Neutrophil % 73.6 % (36.0-66.0); Platelet Count 325 x10^3/uL (150-450); Red Blood Count 4.44 x10^6/uL (4.1-5.4); Red Cell Distribution Width 14.3 % (11.5-14.0); White Blood Count 8.7 x10^3/uL (4.0-10.5)
[2021-10-27 09:04] LABS: ALBUMIN 4.5 g/dL (3.5-5.0); ALKALINE PHOSPHATASE 78 U/L (38-126); ANION GAP 13.4 MEQ/L (5-15); BLOOD UREA NITROGEN 11 mg/dL (7-17); CHLORIDE 94 mmol/L (98-107); Calcium 9.7 mg/dL (8.4-10.2); Carbon Dioxide 24 mmol/L (22-30); Creatinine 1 0.58 mg/dL (0.52-1.04); EST GLOMERULAR FILTRATION RATE > 60.0 ML/MIN; Glucose 101 mg/dL (74-106); Potassium 5.1 mmol/L (3.5-5.1); SGOT/AST 28 U/L (14-36); SGPT/ALT 16 U/L (0-35); SODIUM 127 mmol/L (137-145)
--- NOTE | 2021-10-27 09:15 | ERPHSYRPT ---
- History of Present Illness Time Seen by Provider: 10/27/21 08:30 Source: patient Exam Limitations: no limitations Patient Subjective Stated Complaint: Pt states "I have body aches, I am nauseated and I need somethign for anxiety. I think I have been taking my metformin three times a day insteady of two for the past week." Triage Nursing Assessment: Pt presented alert and oriented X 3, skin pwd PT ambulates with an upright steady gait, able to speak in clear full sentences pt in no apparent respiratory distress. Pt restless Physician History: Patient is a 71-year-old female presents to emergency department for evaluation of 1 day history of nausea body aches. Patient has nonspecific symptoms. No fever. No vomiting no diarrhea. No rash. Symptoms are constant. Symptoms are moderate in intensity. No specific worsening improving factors. Patient also states she feels anxious. Patient denies pain. Patient states she is vaccinated against COVID. Patient lives alone. However patient's daughter is nearby and can help as needed. Patient's complaints are vague nonspecific. No headache. No photophobia. No neck pain. No meningeal signs. Patient voices no other complaints or concerns at this time. Portions of this note were created with voice recognition technology. There may be grammatical, spelling, punctuation or sound alike errors Timing/Duration: yesterday Severity: moderate Modifying Factors: Improves With: nothing Associated Symptoms: nausea, weakness, No vomiting, No abdominal pain, No shortness of breath, No cough, No fever Allergies/Adverse Reactions: meperidine HCl [From Demerol] Adverse Reaction (Mild, Verified 05/26/21 08:29) Vomiting Home Medications: Gabapentin [Neurontin ] 800 mg PO TID 05/12/15 [History] Hydrocodone/APAP 10/325 mg [[place] 10/325 MG TableT] 1 tab PO Q6H PRN PRN 12/04/16 [History] Levothyroxine Sodium 137 mcg PO DAILY 12/04/16 [History] Quinapril HCl 40 mg PO DAILY 12/04/16 [History] Aspirin EC 81 mg [Ecotrin 81 mg] 81 mg PO DAILY 09/25/20 [History] Metformin HCl Xr 500 mg [Glucophage XR 500 MG] 1,000 mg PO BID 09/25/20 [History] PANTOPRAZOLE 40 mg Tablet [Protonix 40MG Tablet] 40 mg PO DAILY 09/25/20 [History] Atorvastatin Calcium [Lipitor 40Mg] 40 mg PO DAILY 10/13/20 [History] Cyanocobalamin 1000 Mcg/ml [Cyanocobalamin B-12 1000 MCG/ML] 0.1 ml IM UD 12/13/20 [History] Senna/Docusate Sodium Tab [Senokot-S Tablet] 1 each PO HS 12/27/20 [His tory] armodafiniL [Nuvigil] 250 mg PO DAILY 12/27/20 [History] Amitriptyline HCl 10 mg [Elavil 10 mg] 10 mg PO HS 05/25/21 [History] Cyanocobalamin (Vitamin B-12) [Vitamin B-12] 1,000 mcg PO DAILY 05/25/21 [History] Magnesium Hydroxide 30 ml [Milk of Magnesia 30 ml] 30 ml PO DAILY PRN PRN 05/25/21 [History] Magnesium Oxide 400 mg [Mag-Ox 400] 400 mg PO DAILY 05/25/21 [History] Hx Tetanus, Diphtheria Vaccination/Date Given: Yes Hx Influenza Vaccination/Date Given: No Hx Pneumococcal Vaccination/Date Given: Yes Immunizations Up to Date: Yes Travel Risk - International Travel Have you traveled outside of the country in past 3 weeks: No - Coronavirus Screening Are you exhibiting any of the following symptoms?: Yes Symptoms: Vomiting/Diarrhea, Headaches/Body Aches/Fatigue Close contact with a COVID-19 positive Pt in past 14-21 Days: No - Vaccine Status Have you recieved a Covid-19 vaccination: [address] Department Dispatcher: Unknown - Vaccination Dates Date of 2cond Vaccination (if applicable): . Dates if Unknown: . - Review of Systems Constitutional: No Symptoms, No Fever, No Chills Eyes: No Symptoms Ears, Nose, & Throat: No Symptoms Respiratory: No Symptoms, No Cough, No Dyspnea Cardiac: No Symptoms, No Chest Pain, No Edema, No Syncope Abdominal/Gastrointestinal: No Symptoms, No Abdominal Pain, No Nausea, No Vomiting, No Diarrhea Genitourinary Symptoms: No Symptoms, No Dysuria Musculoskeletal: No Symptoms, No Back Pain, No Neck Pain Skin: No Symptoms, No Rash Neurological: No Symptoms, No Dizziness, No Focal Weakness, No Sensory Changes Psychological: No Symptoms Endocrine: No Symptoms Hematologic/Lymphatic: No Symptoms Immunological/Allergic: No Symptoms All Other Systems: Reviewed and Negative - Past Medical History Pertinent Past Medical History: Yes Neurological History: Other ENT History: Cataracts, Macular Degeneration Cardiac History: Hypertension Respiratory History: COPD Endocrine Medical History: Diabetes Type II, Hypothyroidism Musculoskeletal History: Osteoarthritis GI Medical History: GERD, GI Bleed History: No Pertinent History Psycho-Social History: Anxiety Female Reproductive Disorders: No Pertinent History Other Medical History: Black out spells - Past Surgical History Past Surgical History: Yes Neuro Surgical History: No Pertinent History Cardiac: No Pertinent History Respiratory: No Pertinent History Gastrointestinal: Cholecystectomy Genitourinary: No Pertinent History Musculoskeletal: No Pertinent History Female Surgical History: Hysterectomy Other Surgical History: Thyroidectomy - Social History Smoking Status: Current every day smoker How long have you smoked: 20 Exposure to second hand smoke: No Drug Use: none Patient Lives Alone: Yes - Nursing Vital Signs Nursing Vital Signs: Initial Vital Signs Temperature 98.8 F 10/27/21 08:15 Pulse Rate 77 10/27/21 08:15 Respiratory Rate 20 10/27/21 08:15 Blood Pressure 136/70 10/27/21 08:15 O2 Sat by Pulse Oximetry 98 10/27/21 08:15 Pain Scale Pain Intensity 4 - Physical Exam General Appearance: no apparent distress, alert Eye Exam: PERRL/EOMI, eyes nml inspection Ears, Nose, Throat Exam: normal ENT inspection, TMs normal, pharynx normal, moist mucous membranes Neck Exam: normal inspection, non-tender, supple, full range of motion Respiratory Exam: normal breath sounds, lungs clear, airway intact, No respiratory distress Cardiovascular Exam: regular rate/rhythm, normal heart sounds, normal peripheral pulses Gastrointestinal/Abdomen Exam: soft, normal bowel sounds, No tenderness, No mass Back Exam: normal inspection, normal range of motion, No CVA tenderness, No vertebral tenderness Extremity Exam: normal inspection, normal range of motion, pelvis stable Neurologic Exam: alert, oriented x 3, cooperative, normal mood/affect, nml cerebellar function, nml station & gait, sensation nml, No motor deficits Skin Exam: normal color, warm, dry, No rash Lymphatic Exam: No adenopathy SpO2 Interpretation: normal SpO2: 98 O2 Delivery: Room Air - Course Nursing assessment & vital signs reviewed: Yes Ordered Tests: Active Orders 24 hr Category Date Time Status IV Insertion STAT Care 10/27/21 08:31 Active CBC W DIFF Stat Lab 10/27/21 08:55 Completed CMP Stat Lab 10/27/21 08:55 Completed TROPONIN Q4H Lab 10/27/21 08:55 Completed TROPONIN Q4H Lab 10/27/21 13:30 Ordered TROPONIN Q4H Lab 10/27/21 17:30 Ordered UA W/RFX CULTURE Stat Lab 10/27/21 09:37 Completed Medication Summary Discontinued Medications Generic Name Dose Route Start Last Admin Trade Name Freq PRN Reason Stop Dose Admin Hydrocodone Bitart/Acetaminophen 1 tab 10/27/21 10:36 10/27/21 10:37 Hydrocodone/Apap 5/325 Mg Tablet PO 10/27/21 10:37 1 tab STAT ONE Administration Hydrocodone Bitart/Acetaminophen Confirm 10/27/21 10:37 Hydrocodone/Apap 5/325 Mg Tablet Administered 10/27/21 10:38 Dose 1 tab .ROUTE .STK-MED ONE Diphenhydramine HCl 25 mg 10/27/21 08:26 10/27/21 08:30 Diphenhydramine Hcl 50 Mg/Ml Vial IV 10/27/21 08:27 25 mg STAT ONE Administration Diphenhydramine HCl Confirm 10/27/21 08:28 Diphenhydramine Hcl 50 Mg/Ml Vial Administered 10/27/21 08:29 Dose 50 mg .ROUTE .STK-MED ONE Sodium Chloride 1,000 mls @ 999 mls/hr 10/27/21 08:26 10/27/21 09:36 Sodium Chloride 0.9% 1000 Ml IV 10/27/21 09:26 Infused .Q1H1M STA Infusion Sodium Chloride Confirm 10/27/21 08:28 Sodium Chloride 0.9% 1000 Ml Administered 10/27/21 08:29 Dose 1,000 mls @ ud .ROUTE .STK-MED ONE Lab/Rad Data: Laboratory Result Diagrams 10/27/21 08:55 10/27/21 08:55 Laboratory Results 10/27/21 10/27/21 10/27/21 Range/Units Unknown 09:37 08:55 WBC (4.0-10.5) x10^3/uL RBC (4.1-5.4) x10^6/uL Hgb (12.0-16.0) g/dL Hct (35-47) % MCV (78-100) fL MCH (26-32) pg MCHC (32-36) g/dL RDW (11.5-14.0) % Plt Count (150-450) x10^3/uL MPV (7.5-11.0) fL Gran % (36.0-66.0) % Immature Gran % (Auto) (0.00-0.4) % Nucleat RBC Rel Count (0.00-0.1) % Eos # (Auto) (0-0.5) x10^3/uL Immature Gran # (Auto) (0.00-0.03) x10^3u/L Absolute Lymphs (auto) (1.0-4.6) x10^3/uL Absolute Monos (auto) (0.0-1.3) x10^3/uL Absolute Nucleated RBC (0.00-0.01) x10^3u/L Lymphocytes % (24.0-44.0) % Monocytes % (0.0-12.0) % Eosinophils % (0.00-5.0) % Basophils % (0.0-0.4) % Absolute Granulocytes (1.4-6.9) x10^3/uL Basophils # (0-0.4) x10^3/uL Sodium (137-145) mmol/L Potassium (3.5-5.1) mmol/L Chloride (98-107) mmol/L Carbon Dioxide (22-30) mmol/L Anion Gap (5-15) MEQ/L BUN (7-17) mg/dL Creatinine (0.52-1.04) mg/dL Estimated GFR ML/MIN Glucose (74-106) mg/dL Calcium (8.4-10.2) mg/dL Total Bilirubin (0.2-1.3) mg/dL AST (14-36) U/L ALT (0-35) U/L Alkaline Phosphatase (38-126) U/L Troponin I < 0.012 (0.000-0.034) ng/mL Serum Total Protein (6.3-8.2) g/dL Albumin (3.5-5.0) g/dL Urinalys Dipstick Clnc MAIN LAB Urine Color YELLOW (YELLOW) Urine Appearance CLEAR (CLEAR) Urine pH 7.0 (5-6) Ur Specific [place] 1.015 (1.005-1.025) POC Urine Protein Conf NEGATIVE (Negative) Urine Ketones NEGATIVE (NEGATIVE) Urine Nitrite NEGATIVE (NEGATIVE) Urine Bilirubin NEGATIVE (NEGATIVE) Urine Urobilinogen 0.2 (0-1) mg/dL Urine Leukocytes NEGATIVE (NEGATIVE) Urine WBC (Auto) 0-2 (0-5) /HPF Urine RBC (Auto) NONE (0-2) /HPF U Epithel Cells (Auto) NONE (FEW) /HPF Urine Bacteria (Auto) NONE (NEGATIVE) /HPF Urine RBC NEGATIVE (0-5) [place]/ul Urine Mucus (Auto) SLIGHT (NEGATIVE) /HPF Ur Culture Indicated? NO Urine Glucose NEGATIVE (NEGATIVE) mg/dL Influenza Type A Ag NEGATIVE (NEGATIVE) Influenza Type B Ag NEGATIVE (NEGATIVE) RSV (PCR) NEGATIVE (Negative) SARS-CoV-2 (PCR) NEGATIVE (NEGATIVE) 10/27/21 10/27/21 Range/Units 08:55 08:55 WBC 8.7 (4.0-10.5) x10^3/uL RBC 4.44 (4.1-5.4) x10^6/uL Hgb 14.0 (12.0-16.0) g/dL Hct 41.3 (35-47) % MCV 93.0 (78-100) fL MCH 31.5 (26-32) pg MCHC 33.9 (32-36) g/dL RDW 14.3 H (11.5-14.0) % Plt Count 325 (150-450) x10^3/uL MPV 9.7 (7.5-11.0) fL Gran % 73.6 H (36.0-66.0) % Immature Gran % (Auto) 0.3 (0.00-0.4) % Nucleat RBC Rel Count 0.0 (0.00-0.1) % Eos # (Auto) 0.02 (0-0.5) x10^3/uL Immature Gran # (Auto) 0.03 (0.00-0.03) x10^3u/L Absolute Lymphs (auto) 1.64 (1.0-4.6) x10^3/uL Absolute Monos (auto) 0.57 (0.0-1.3) x10^3/uL Absolute Nucleated RBC 0.00 (0.00-0.01) x10^3u/L Lymphocytes % 18.8 L (24.0-44.0) % Monocytes % 6.5 (0.0-12.0) % Eosinophils % 0.2 (0.00-5.0) % Basophils % 0.6 (0.0-0.4) % Absolute Granulocytes 6.42 (1.4-6.9) x10^3/uL Basophils # 0.05 (0-0.4) x10^3/uL Sodium 127 L (137-145) mmol/L Potassium 5.1 (3.5-5.1) mmol/L Chloride 94 L (98-107) mmol/L Carbon Dioxide 24 (22-30) mmol/L Anion Gap 13.4 (5-15) MEQ/L BUN 11 (7-17) mg/dL Creatinine 0.58 (0.52-1.04) mg/dL Estimated GFR > 60.0 ML/MIN Glucose 101 (74-106) mg/dL Calcium 9.7 (8.4-10.2) mg/dL Total Bilirubin 0.40 (0.2-1.3) mg/dL AST 28 (14-36) U/L ALT 16 (0-35) U/L Alkaline Phosphatase 78 (38-126) U/L Troponin I (0.000-0.034) ng/mL Serum Total Protein 7.0 (6.3-8.2) g/dL Albumin 4.5 (3.5-5.0) g/dL Urinalys Dipstick Clnc Urine Color (YELLOW) Urine Appearance (CLEAR) Urine pH (5-6) Ur Specific [place] (1.005-1.025) POC Urine Protein Conf (Negative) Urine Ketones (NEGATIVE) Urine Nitrite (NEGATIVE) Urine Bilirubin (NEGATIVE) Urine Urobilinogen (0-1) mg/dL Urine Leukocytes (NEGATIVE) Urine WBC (Auto) (0-5) /HPF Urine RBC (Auto) (0-2) /HPF U Epithel Cells (Auto) (FEW) /HPF Urine Bacteria (Auto) (NEGATIVE) /HPF Urine RBC (0-5) [place]/ul Urine Mucus (Auto) (NEGATIVE) /HPF Ur Culture Indicated? Urine Glucose (NEGATIVE) mg/dL Influenza Type A Ag (NEGATIVE) Influenza Type B Ag (NEGATIVE) RSV (PCR) (Negative) SARS-CoV-2 (PCR) (NEGATIVE) - Progress Progress: improved Progress Note: Patient reassessed. Nausea resolved. Patient tolerated p.o. Patient ambulated to the bathroom and back with a steady gait. Laboratory work-up reveals a hyponatremia at 127. IV fluids infused. Patient's sodium tends to run in the low 130s. Patient is not too far off of her baseline. Patient states she feels she is ready to go home. She will follow-up with her doctor in the next 48 hours for evaluation. Patient is calling her daughter for a ride home. Portions of this note were created with voice recognition technology. There may be grammatical, spelling, punctuation or sound alike errors 10/27/21 10:45 Counseled pt/family regarding: lab results, diagnosis, need for follow-up - Departure Departure Disposition: Home Clinical Impression: Hyponatremia, Generalized weakness Condition: Stable Critical Care Time: No Referrals: AURORA MARI MD [Primary Care Provider] - Follow up/PCP as directed Additional Instructions: Discharge/Care Plan LUCY SHARPE was seen on 10/27/21 in the Emergency Room. The patient was counseled regarding Diagnosis,Lab results, Imaging studies, need for follow up and when to return to the Emergency Room. Prescriptions given: Discharge Note I have spoken with the patient and/or caregivers. I have explained the patient's condition, diagnosis and treatment plan based on the information available to me at this time. I have answered the patient's and/or caregiver's questions and addressed any concerns. The patient and/or caregivers have as good understanding of the patient's diagnosis, condition and treatment plan as can be expected at this point. The vital signs have been stable. The patient's condition is stable and appropriate for discharge from the emergency department. The patient will pursue further outpatient evaluation with the primary care physician or other designated or consulting physician as outlined in the discharge instructions. The patient and/or caregivers are agreeable to this plan of care and follow-up instructions have been explained in detail. The patient and/or caregivers have received these instruction. The patient/and or caregivers are aware that any significant change in condition or worsening of symptoms should prompt an immediate return to this or the closest emergency department or call 911.
[2021-10-27 09:45] LABS: Mucus SLIGHT /HPF (NEGATIVE); WBC 0-2 /HPF (0-5)
[2021-10-27 09:47] VITALS: PULSE 80
[2021-10-27 09:47] LABS: Appearance CLEAR (CLEAR); Bilirubin NEGATIVE (NEGATIVE); Dipstick done @ ? MAIN LAB; Glucose NEGATIVE (NEGATIVE); Ketones NEGATIVE (NEGATIVE); Nitrite NEGATIVE (NEGATIVE); Protein,Urine Dip NEGATIVE (Negative); RBC NEGATIVE Ery/ul (0-5); Specific Gravity 1.015 (1.005-1.025); Urobilinogen 0.2 mg/dL (0-1)
[2021-10-27 09:50] LABS: Urine Cultured Indicated? NO
[2021-10-27 10:30] LABS: INFLUENZA A NEGATIVE (NEGATIVE); INFLUENZA B NEGATIVE (NEGATIVE); RESPIRATORY SYNCTIAL VIRUS NEGATIVE (Negative); SARS-CoV-2 Xpert Express NEGATIVE (NEGATIVE)
[2021-10-27] MEDS ORDERED: NORCO 5/325 MG PO ONE (10:36)
[2021-10-27 10:37] VITALS: BP 148/68; O2SAT 98
[2021-10-27] MEDS ORDERED: NORCO 5/325 MG ONE (10:37)
== END 2021-10-27 10:55 | disposition home or self-care (01) ==
LOC: ED 08:10
DX: E87.1 Hypo-osmolality and hyponatremia (principal); R53.1 Weakness; R11.0 Nausea; M79.10 Myalgia, unspecified site; I10 Essential (primary) hypertension; E11.9 Type 2 diabetes mellitus without complications; Z72.0 Tobacco use; Z79.84 Long term (current) use of oral hypoglycemic drugs; Z79.899 Other long term (current) drug therapy; Z20.828 Contact with and (suspected) exposure to other viral communicable diseases
CPT/HCPCS: 0241U; 36000; 36415; 80053; 81015; 84484; 85025; 96360; 96374; 99284; J1200; A9270-GY